=== PATIENT | male | born 1960 | race Caucasian/White ===

== ENCOUNTER 2017-05-29 16:39 | Inpatient (IN) | payer BC, OTHER ==
--- NOTE | 2017-05-29 20:21 | EDM.PDOC ---
ED HPI GENERAL MEDICAL PROBLEM - General Chief Complaint: General Stated Complaint: SHORTNESS OF BREATH; HIGH BLOOD PRESSURE Time Seen by Provider: 05/29/17 18:08 Source of Information: Reports: Patient History Limitations: Reports: No Limitations - History of Present Illness INITIAL COMMENTS - FREE TEXT/NARRATIVE: History of present illness: [57-year-old male with known coronary disease and congestive heart failure presenting with especially this last week increasing trouble with PND at night and orthopnea and now today all day long he's been experiencing some chest heaviness and pressure that spontaneously resolved when he arrived to the ER. He does have a history of being stented in 2013 and so does have known coronary artery disease. So at the time that I'm seeing him he sitting up comfortable showing no signs of respiratory distress and not having any chest pain but he is quite edematous.] Review of systems: As per history of present illness and below otherwise all systems reviewed and negative. Past medical history: As per history of present illness and as reviewed below otherwise noncontributory. Surgical history: As per history of present illness and as reviewed below otherwise noncontributory. Social history: No reported history of drug or alcohol abuse. Family history: As per history of present illness and as reviewed below otherwise noncontributory. Physical exam: HEENT: Atraumatic, normocephalic, pupils reactive, negative for conjunctival pallor or scleral icterus, mucous membranes moist, throat clear, neck supple, nontender, trachea midline. Lungs: Some crackles in the bases. Heart: S1S2, regular, negative for clicks, rubs, or JVD. Abdomen: Soft, nondistended, nontender. Negative for masses or hepatosplenomegaly. Negative for costovertebral tenderness. Pelvis: Stable nontender. Genitourinary: Deferred. Rectal: Deferred. Extremities: Atraumatic, negative for cords or calf pain. Neurovascular unremarkable. He does have pitting edema in his lower extremities left greater than right. Neuro: Awake, alert, oriented. Cranial nerves II through XII unremarkable. Cerebellum unremarkable. Motor and sensory unremarkable throughout. Exam nonfocal. Diagnostics: [EKG shows a sinus rhythm with no current ischemia or injury. Troponin is not elevated. His BNP is also not elevated. Chest x-ray I believe is demonstrating redistribution pattern suggestive of congestive heart failure] Therapeutics: [] Impression: [Exacerbation of congestive heart failure] Plan: [I think it would be easiest to hospitalize him and try to maximize his medical therapy in the hospital setting where he can be monitored closely and hopefully come up with a medication regime that meets his needs at this time. Eyes with [facility] who is admitting him at this time. If possible I would think he would be useful to get an echocardiogram on him so that his cardiac function could be evaluated and documented] Definitive disposition and diagnosis as appropriate pending reevaluation and review of above. - Related Data Allergies Allergy/AdvReac Type Severity Reaction Status Date / Time iodine Allergy Intermediate Hives Verified 12/18/16 20:36 atorvastatin [From Lipitor] Allergy Cannot Verified 12/18/16 20:36 Remember celecoxib [From Celebrex] Allergy Cannot Verified 12/18/16 20:36 Remember colchicine Allergy Cannot Verified 12/18/16 20:36 Remember doxycycline Allergy Pain Verified 05/29/17 17:39 naltrexone Allergy Cannot Verified 12/18/16 20:36 Remember nebivolol HCl [From Bystolic] Allergy Shaking Verified 12/18/16 20:36 niacin Allergy Cannot Verified 12/18/16 20:36 Remember nifedipine [From Procardia] Allergy Hypertensio Verified 12/18/16 20:36 n prazosin HCl [From Minipress] Allergy Hypertensio Verified 12/18/16 20:36 n shellfish derived Allergy Cannot Verified 12/18/16 20:36 Remember wheat Allergy Cannot Verified 08/16/16 06:56 Remember diagnostic dye Allergy Cannot Uncoded 12/18/16 20:37 Remember tuberculin test Allergy Cannot Uncoded 12/18/16 20:37 Remember Home Meds: Home Meds Atenolol [Tenormin] 25 mg PO BID 09/07/13 [History] Nitroglycerin [Nitrostat] 1 tab SL ASDIRECTED PRN 09/07/13 [History] Potassium Chloride [Potassium Chloride Solution] 20 meq PO DAILY 09/07/13 [ History] Rosuvastatin Calcium [Crestor] 40 mg PO BEDTIME 09/07/13 [History] Ascorbic Acid [Vitamin C] 500 mg PO DAILY 03/28/16 [History] Cyanocobalamin (Vitamin B-12) [Vitamin B-12] 2 tab PO DAILY 03/28/16 [History] Gluc HCl/Csa/Marta Hy/Hyalur Ac [Glucosamine Chondroitin] 1 each PO DAILY [History] Multivitamin [Multivitamins] 1 each PO DAILY 03/28/16 [History] Vitamin E 400 unit PO DAILY 03/28/16 [History] Albuterol Sulfate [Proair Hfa] 2 puff IH Q4H PRN 08/01/16 [History] Aspirin [Halfprin] 81 mg PO DAILY 08/01/16 [History] Fluticasone Propionate [Flonase] 2 spray NS DAILY 08/01/16 [History] Furosemide [Lasix] 20 mg PO QPM 08/01/16 [History] Furosemide [Lasix] 40 mg PO DAILY 08/01/16 [History] Indomethacin [Indocin SR] 75 mg PO BIDMEALS 08/01/16 [History] Loratadine [Claritin] 10 mg PO DAILY 08/01/16 [History] [place]-3/DHA/Epa/Fish Oil [[place]-3 Fish Oil 1,000 MG Sfgl] 1,000 mg PO DAILY [History] Vitamin-Lipotropic 1 tab PO DAILY 08/01/16 [History] Allopurinol [Zyloprim] 300 mg PO DAILY 08/14/16 [History] Ibuprofen 200 mg PO Q6HR PRN 08/16/16 [History] Past Medical History HEENT History: Reports: Allergic Rhinitis, Impaired Vision Cardiovascular History: Reports: Heart Failure, Heart Murmur, High Cholesterol, Hypertension, SOB on Exertion, Stents Respiratory History: Reports: Pneumonia, Recurrent Other Respiratory History: seasonal allergies with use of albuterol as needed. Gastrointestinal History: Reports: Diverticulosis Musculoskeletal History: Reports: Back Pain, Chronic, Fracture, Gout, Neck Pain , Chronic, Osteoarthritis Endocrine/Metabolic History: Reports: Obesity/BMI 30+ Hematologic History: Reports: Blood Transfusion(s) Dermatologic History: Reports: Venous Stasis Dermatitis - Infectious Disease History Infectious Disease History: Reports: Chicken Pox, Measles - Past Surgical History Head Surgeries/Procedures: Reports: None HEENT Surgical History: Reports: Oral Surgery Cardiovascular Surgical History: Reports: Coronary Artery Stent Respiratory Surgical History: Reports: None GI Surgical History: Reports: Appendectomy, EGD Endocrine Surgical History: Reports: None Musculoskeletal Surgical History: Reports: None Dermatological Surgical History: Reports: Other (See Below) Social & Family History - Family History Family Medical History: Noncontributory Cardiac: Reports: CAD, High Cholesterol, Hypertension, [place] - Tobacco Use Smoking Status *Q: Never Smoker Second Hand Smoke Exposure: No - Caffeine Use Caffeine Use: Reports: Coffee, Soda, Tea - Alcohol Use Days Per Week of Alcohol Use: 0 - Recreational Drug Use Recreational Drug Use: No ED ROS GENERAL - Review of Systems Review Of Systems: ROS reveals no pertinent complaints other than HPI. ED EXAM, GENERAL - Physical Exam Exam: See Below Course - Vital Signs Last Recorded V/S: Last Vital Signs Temp 36.7 C 05/29/17 17:36 Pulse 60 05/29/17 19:53 Resp 14 05/29/17 19:53 BP 154/91 H 05/29/17 19:53 Pulse Ox 96 05/29/17 19:53 - Orders/Labs/Meds Orders: Active Orders 24 hr Category Date Time Status EKG Documentation Completion [RC] ASDIRECTED Care 05/29/17 18:19 Active EKG Documentation Completion [RC] ASDIRECTED Care 05/29/17 18:33 Active Chest 1V Frontal [CR] Stat Exams 05/29/17 18:32 Taken EKG 12 Lead [EK] Routine Ther 05/29/17 18:19 Ordered EKG 12 Lead [EK] Stat Ther 05/29/17 18:32 Ordered Labs: Laboratory Tests 05/29/17 05/29/17 05/29/17 Range/Units 18:44 18:44 18:44 WBC 8.7 (4.5-11.0) K/uL RBC 4.53 (4.30-5.90) M/uL Hgb 13.9 (12.0-15.0) g/dL Hct 41.0 (40.0-54.0) % MCV 91 (80-98) fL MCH 31 (27-31) pg MCHC 34 (32-36) % Plt Count 194 (150-400) K/uL Neut % (Auto) 66 (36-66) % Lymph % (Auto) 23 L (24-44) % Woodson % (Auto) 6 (2-6) % Eos % (Auto) 4 (2-4) % Baso % (Auto) 1 (0-1) % PT 10.1 (9.5-12.0) sec INR 0.95 (0.80-1.20) D-Dimer, Quantitative < 100 (0.0-400.0) ng/mL Sodium (140-148) mmol/L Potassium (3.6-5.2) mmol/L Chloride (100-108) mmol/L Carbon Dioxide (21-32) mmol/L Anion Gap (5.0-14.0) mmol/L BUN (7-18) mg/dL Creatinine (0.8-1.3) mg/dL Est Cr Clr Drug Dosing mL/min Estimated GFR (MDRD) (>60) Glucose (74-106) mg/dL Calcium (8.5-10.1) mg/dL Total Bilirubin (0.2-1.0) mg/dL AST (15-37) U/L ALT (12-78) U/L Alkaline Phosphatase (46-116) U/L Troponin I (0.000-0.056) ng/mL Bea-T-Azeframterd Pept (5-125) pg/mL Total Protein (6.4-8.2) g/dL Albumin (3.4-5.0) g/dL Globulin (2.3-3.5) g/dL Albumin/Globulin Ratio (1.2-2.2) Urine Color Urine Appearance Urine pH (4.5-8.0) Ur Specific Gore (1.008-1.030) Urine Protein (NEGATIVE) mg/dL Urine Glucose (UA) (NEGATIVE) mg/dL Urine Ketones (NEGATIVE) mg/dL Urine Occult Blood (NEGATIVE) Urine Nitrite (NEGAITVE) Urine Bilirubin (NEGATIVE) Urine Urobilinogen (NORMAL) mg/dL Ur Leukocyte Esterase (NEGATIVE) Urine RBC (0-5) Urine WBC (0-5) Ur Epithelial Cells Amorphous Sediment Urine Bacteria Urine Mucus 05/29/17 05/29/17 Range/Units 18:44 19:56 WBC (4.5-11.0) K/uL RBC (4.30-5.90) M/uL Hgb (12.0-15.0) g/dL Hct (40.0-54.0) % MCV (80-98) fL MCH (27-31) pg MCHC (32-36) % Plt Count (150-400) K/uL Neut % (Auto) (36-66) % Lymph % (Auto) (24-44) % Woodson % (Auto) (2-6) % Eos % (Auto) (2-4) % Baso % (Auto) (0-1) % PT (9.5-12.0) sec INR (0.80-1.20) D-Dimer, Quantitative (0.0-400.0) ng/mL Sodium 143 (140-148) mmol/L Potassium 3.6 (3.6-5.2) mmol/L Chloride 104 (100-108) mmol/L Carbon Dioxide 31 (21-32) mmol/L Anion Gap 7.6 (5.0-14.0) mmol/L BUN 18 (7-18) mg/dL Creatinine 1.1 (0.8-1.3) mg/dL Est Cr Clr Drug Dosing 86.14 mL/min Estimated GFR (MDRD) > 60 (>60) Glucose 115 H (74-106) mg/dL Calcium 8.8 (8.5-10.1) mg/dL Total Bilirubin 0.2 (0.2-1.0) mg/dL AST 17 (15-37) U/L ALT 37 (12-78) U/L Alkaline Phosphatase 87 (46-116) U/L Troponin I < 0.017 (0.000-0.056) ng/mL Sxe-H-Bykihrivazj Pept 76 (5-125) pg/mL Total Protein 7.3 (6.4-8.2) g/dL Albumin 3.3 L (3.4-5.0) g/dL Globulin 4.0 H (2.3-3.5) g/dL Albumin/Globulin Ratio 0.8 L (1.2-2.2) Urine Color Yellow Urine Appearance Clear Urine pH 5.0 (4.5-8.0) Ur Specific Gore 1.020 (1.008-1.030) Urine Protein Negative (NEGATIVE) mg/dL Urine Glucose (UA) Normal (NEGATIVE) mg/dL Urine Ketones Negative (NEGATIVE) mg/dL Urine Occult Blood Negative (NEGATIVE) Urine Nitrite Negative (NEGAITVE) Urine Bilirubin Negative (NEGATIVE) Urine Urobilinogen Normal (NORMAL) mg/dL Ur Leukocyte Esterase Negative (NEGATIVE) Urine RBC 0-5 (0-5) Urine WBC 0-5 (0-5) Ur Epithelial Cells Rare Amorphous Sediment Few Urine Bacteria Not seen Urine Mucus Few Departure - Departure Time of Disposition: 20:21 Disposition: Admitted As Inpatient 66 Condition: Good Clinical Impression: CHF, Congestive heart failure - Discharge Information Forms: ED Department Discharge - My Orders Last 24 Hours: My Active Orders 05/29/17 18:19 EKG Documentation Completion [RC] ASDIRECTED EKG 12 Lead [EK] Routine 05/29/17 18:32 Chest 1V Frontal [CR] Stat EKG 12 Lead [EK] Stat 05/29/17 18:33 EKG Documentation Completion [RC] ASDIRECTED - Assessment/Plan Last 24 Hours: My Active Orders 05/29/17 18:19 EKG Documentation Completion [RC] ASDIRECTED EKG 12 Lead [EK] Routine 05/29/17 18:32 Chest 1V Frontal [CR] Stat EKG 12 Lead [EK] Stat 05/29/17 18:33 EKG Documentation Completion [RC] ASDIRECTED
[2017-05-29] MEDS ORDERED: Ibuprofen 400 MG Tab PO ONE (20:43)
[2017-05-29] MEDS ORDERED: Furosemide 40 MG/4 ML VIAL IVPUSH ONE (21:21)
[2017-05-29] MEDS ORDERED: Sodium Chloride 0.9% 10 ML Syringe FLUSH PRN (21:23)
[2017-05-29] MEDS ORDERED: Furosemide 20 MG/2 ML VIAL IVPUSH ONE (21:23)
[2017-05-29] MEDS ORDERED: Albuterol 8 GM Inhaler INH PRN (23:07)
[2017-05-29] MEDS ORDERED: Morphine 2 MG/ML Syringe IVPUSH PRN (23:07)
[2017-05-29] MEDS ORDERED: Docusate Sodium 100 MG Cap PO PRN (23:07)
[2017-05-29] MEDS ORDERED: Acetaminophen 325 MG Tab PO PRN (23:07)
[2017-05-29] MEDS ORDERED: Albuterol 0.083% 2.5 MG/3 ML Neb Soln NEB PRN (23:07)
[2017-05-29] MEDS ORDERED: Albuterol/Ipratropium 3.0-0.5 MG/3 ML Neb Soln NEB PRN (23:07)
[2017-05-29] MEDS ORDERED: LORazepam 2 MG/ML MDV IV PRN (23:07)
[2017-05-29] MEDS ORDERED: Ondansetron 4 MG Tab.DIS PO PRN (23:07)
[2017-05-29] MEDS ORDERED: Nitroglycerin 0.4 MG Tab.SL SL PRN (23:07)
[2017-05-29] MEDS ORDERED: Ibuprofen 400 MG Tab PO PRN (23:07)
[2017-05-29] MEDS ORDERED: Bisacodyl 5 MG Tab PO PRN (23:07)
[2017-05-29] MEDS ORDERED: oxyCODONE 5 MG Tab PO PRN (23:07)
[2017-05-30] MEDS ORDERED: Rosuvastatin 10 MG Tab PO SCH ×2 (00:14→21:00)
[2017-05-30] MEDS ORDERED: Rosuvastatin 10 MG Tab ONE ×2 (00:17→00:19)
[2017-05-30] MEDS: Atenolol 25 MG Tab PO SCH ×2 (00:18→08:36)
[2017-05-30] MEDS ORDERED: Pantoprazole 40 MG Tab.CR PO SCH ×2 (07:30→09:00)
--- NOTE | 2017-05-30 07:35 | PCM.HP ---
H&P History of Present Illness - General Date of Service: 05/29/17 Admit Problem/Dx: Admission Diagnosis/Problem Admission Diagnosis/Problem Chest pain Source of Information: Patient History Limitations: Reports: No Limitations - History of Present Illness Initial Comments - Free Text/Narative: History of present illness: [57-year-old male with known coronary disease and congestive heart failure presenting with especially this last week increasing trouble with PND at night and orthopnea and now today all day long he's been experiencing some chest heaviness and pressure that spontaneously resolved when he arrived to the ER. He does have a history of being stented in 2013 and age 40 years and so does have known coronary artery disease. So at the time that I'm seeing him he sitting up comfortable showing no signs of respiratory distress and not having any chest pain but he is quite edematous.] Review of systems: As per history of present illness and below otherwise all systems reviewed and negative. Past medical history: As per history of present illness and as reviewed below otherwise noncontributory. Surgical history: As per history of present illness and as reviewed below otherwise noncontributory. Social history: No reported history of drug or alcohol abuse. Family history: As per history of present illness and as reviewed below otherwise noncontributory. Physical exam: HEENT: Atraumatic, normocephalic, pupils reactive, negative for conjunctival pallor or scleral icterus, mucous membranes moist, throat clear, neck supple, nontender, trachea midline. Lungs: Some crackles in the bases. Heart: S1S2, regular, negative for clicks, rubs, or JVD. Abdomen: Soft, nondistended, nontender. Negative for masses or hepatosplenomegaly. Negative for costovertebral tenderness. Pelvis: Stable nontender. Genitourinary: Deferred. Rectal: Deferred. Extremities: Atraumatic, negative for cords or calf pain. Neurovascular unremarkable. He does have pitting edema in his lower extremities left greater than right. Neuro: Awake, alert, oriented. Cranial nerves II through XII unremarkable. Cerebellum unremarkable. Motor and sensory unremarkable throughout. Exam nonfocal. Diagnostics: [EKG shows a sinus rhythm with no current ischemia or injury. Troponin is not elevated. His BNP is also not elevated. Chest x-ray I believe is demonstrating redistribution pattern suggestive of congestive heart failure] Therapeutics: [] Impression: [Exacerbation of congestive heart failure] Plan: admit to hospital Onset of Symptoms: Reports: Today Duration of Symptoms: Reports: Hour(s):, Resolved Prior to Arrival Location: Reports: Chest Quality: Reports: Ache, Burning Severity: Moderate Improves with: Reports: None Worsens with: Reports: None Associated Symptoms: Reports: Shortness of Breath, Other (stopped Plavix 3 months ago.) - Related Data Allergies/Adverse Reactions: Allergies Allergy/AdvReac Type Severity Reaction Status Date / Time iodine Allergy Intermediate Hives Verified 12/18/16 20:36 atorvastatin [From Lipitor] Allergy Cannot Verified 12/18/16 20:36 Remember celecoxib [From Celebrex] Allergy Cannot Verified 12/18/16 20:36 Remember colchicine Allergy Cannot Verified 12/18/16 20:36 Remember doxycycline Allergy Pain Verified 05/29/17 17:39 naltrexone Allergy Cannot Verified 12/18/16 20:36 Remember nebivolol HCl [From Bystolic] Allergy Shaking Verified 12/18/16 20:36 niacin Allergy Cannot Verified 12/18/16 20:36 Remember nifedipine [From Procardia] Allergy Hypertensio Verified 12/18/16 20:36 n prazosin HCl [From Minipress] Allergy Hypertensio Verified 12/18/16 20:36 n shellfish derived Allergy Cannot Verified 12/18/16 20:36 Remember wheat Allergy Cannot Verified 08/16/16 06:56 Remember diagnostic dye Allergy Cannot Uncoded 12/18/16 20:37 Remember tuberculin test Allergy Cannot Uncoded 12/18/16 20:37 Remember Home Medications: Home Meds Atenolol [Tenormin] 25 mg PO BID 09/07/13 [History] Nitroglycerin [Nitrostat] 1 tab SL ASDIRECTED PRN 09/07/13 [History] Potassium Chloride [Potassium Chloride Solution] 20 meq PO DAILY 09/07/13 [ History] Rosuvastatin Calcium [Crestor] 40 mg PO BEDTIME 09/07/13 [History] Ascorbic Acid [Vitamin C] 500 mg PO DAILY 03/28/16 [History] Cyanocobalamin (Vitamin B-12) [Vitamin B-12] 2 tab PO DAILY 03/28/16 [History] Gluc HCl/Csa/Marta Hy/Hyalur Ac [Glucosamine Chondroitin] 1 each PO DAILY [History] Multivitamin [Multivitamins] 1 each PO DAILY 03/28/16 [History] Vitamin E 400 unit PO DAILY 03/28/16 [History] Albuterol Sulfate [Proair Hfa] 2 puff IH Q4H PRN 08/01/16 [History] Aspirin [Halfprin] 81 mg PO DAILY 08/01/16 [History] Fluticasone Propionate [Flonase] 2 spray NS DAILY 08/01/16 [History] Furosemide [Lasix] 20 mg PO QPM 08/01/16 [History] Furosemide [Lasix] 40 mg PO DAILY 08/01/16 [History] Indomethacin [Indocin SR] 75 mg PO BIDMEALS 08/01/16 [History] Loratadine [Claritin] 10 mg PO DAILY 08/01/16 [History] [place]-3/DHA/Epa/Fish Oil [[place]-3 Fish Oil 1,000 MG Sfgl] 1,000 mg PO DAILY [History] Vitamin-Lipotropic 1 tab PO DAILY 08/01/16 [History] Allopurinol [Zyloprim] 300 mg PO DAILY 08/14/16 [History] Ibuprofen 200 mg PO Q6HR PRN 08/16/16 [History] Past Medical History HEENT History: Reports: Allergic Rhinitis, Impaired Vision Cardiovascular History: Reports: Heart Failure, Heart Murmur, High Cholesterol, Hypertension, SOB on Exertion, Stents Respiratory History: Reports: Pneumonia, Recurrent Other Respiratory History: seasonal allergies with use of albuterol as needed. Gastrointestinal History: Reports: Diverticulosis Musculoskeletal History: Reports: Back Pain, Chronic, Fracture, Gout, Neck Pain , Chronic, Osteoarthritis Endocrine/Metabolic History: Reports: Obesity/BMI 30+ Hematologic History: Reports: Blood Transfusion(s) Dermatologic History: Reports: Venous Stasis Dermatitis - Infectious Disease History Infectious Disease History: Reports: Chicken Pox, Measles - Past Surgical History Head Surgeries/Procedures: Reports: None HEENT Surgical History: Reports: Oral Surgery Cardiovascular Surgical History: Reports: Coronary Artery Stent Respiratory Surgical History: Reports: None GI Surgical History: Reports: Appendectomy, EGD Endocrine Surgical History: Reports: None Musculoskeletal Surgical History: Reports: None Dermatological Surgical History: Reports: Other (See Below) Social & Family History - Family History Family Medical History: Noncontributory Cardiac: Reports: CAD, High Cholesterol, Hypertension, [place] - Tobacco Use Smoking Status *Q: Never Smoker Second Hand Smoke Exposure: No - Caffeine Use Caffeine Use: Reports: Soda Other Caffeine Use: Pepsi - Alcohol Use Days Per Week of Alcohol Use: 0 - Recreational Drug Use Recreational Drug Use: No - Living Situation & Occupation Living situation: Reports: Occupation: Employed (lives with Liza in [place], [place]. 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[place], [place].) H&P Review of Systems - Review of Systems: Review Of Systems: See Below General: Reports: Malaise, Weight Gain HEENT: Reports: No Symptoms Pulmonary: Reports: Shortness of Breath, Pleuritic Chest Pain Cardiovascular: Reports: Chest Pain, Dyspnea on Exertion, Orthopnea, PND, Edema Gastrointestinal: Reports: No Symptoms Genitourinary: Reports: No Symptoms Musculoskeletal: Reports: No Symptoms Skin: Reports: No Symptoms Psychiatric: Reports: No Symptoms Neurological: Reports: No Symptoms Hematologic/Lymphatic: Reports: No Symptoms Immunologic: Reports: No Symptoms Exam - Exam Exam: See Below - Vital Signs Vital Signs: Last Vital Signs Temp 36.9 C 05/30/17 03:05 Pulse 61 05/30/17 03:05 Resp 18 05/30/17 03:05 BP 114/78 05/30/17 03:05 Pulse Ox 96 05/30/17 03:05 Weight: 156.625 kg - Exam General: Alert, Oriented, 4 HEENT: PERRLA, Hearing Intact, Mucosa Moist & [place], Nares Patent, Normal Nasal Septum, Posterior Pharynx Clear, Conjunctiva Clear, EOMI, EACs Clear, TMs Clear Neck: Supple, Trachea Midline, 2 Lungs: Clear to Auscultation, Normal Respiratory Effort Cardiovascular: Regular Rate, Regular Rhythm, Normal S1 Abdomen: Normal Bowel Sounds, Soft (Male) Exam: Deferred Rectal (Males) Exam: Deferred Back Exam: Normal Inspection, Full Range of Motion, NT Extremities: Edema Skin: Warm, Dry, Intact Neurological: Cranial Nerves Intact, Reflexes Equal Bilateral Neuro Extensive - Mental Status: Alert, Oriented x3, Normal Mood/Affect, Normal Cognition Neuro Extensive - Motor, Sensory, Reflexes: CN II-XII Intact, Normal Gait, Normal Reflexes Psychiatric: Alert, Normal Affect, Normal Mood - Patient Data Lab Results Last 24 hrs: Laboratory Results - last 24 hr 05/30/17 05/30/17 Range/Units 05:10 05:10 WBC 8.7 (4.5-11.0) K/uL RBC 4.40 (4.30-5.90) M/uL Hgb 13.5 (12.0-15.0) g/dL Hct 40.1 (40.0-54.0) % MCV 91 (80-98) fL MCH 31 (27-31) pg MCHC 34 (32-36) % Plt Count 172 (150-400) K/uL Neut % (Auto) 60 (36-66) % Lymph % (Auto) 28 (24-44) % Archer % (Auto) 7 H (2-6) % Eos % (Auto) 4 (2-4) % Baso % (Auto) 1 (0-1) % Sodium 143 (140-148) mmol/L Potassium 3.2 L (3.6-5.2) mmol/L Chloride 102 (100-108) mmol/L Carbon Dioxide 34 H (21-32) mmol/L Anion Gap 10.2 (5.0-14.0) mmol/L BUN 17 (7-18) mg/dL Creatinine 1.1 (0.8-1.3) mg/dL Est Cr Clr Drug Dosing 86.14 mL/min Estimated GFR (MDRD) > 60 (>60) Glucose 119 H (74-106) mg/dL Calcium 8.7 (8.5-10.1) mg/dL Magnesium 1.8 (1.8-2.4) mg/dL Troponin I < 0.017 (0.000-0.056) ng/mL Result Diagrams: 05/30/17 05:10 05/30/17 05:10 *Q Meaningful Use (ADM) - VTE *Q VTE Criteria *Q: - Stroke *Q Stroke Criteria *Q: - AMI *Q AMI Criteria *Q: - Problem List (1) Chest pain, atypical SNOMED Code(s): 418266426 ICD Code: R07.89 - OTHER CHEST PAIN Status: Acute Priority: High Current Visit: Yes (2) CHF, Congestive heart failure SNOMED Code(s): 71018765 ICD Code: I50.9 - HEART FAILURE, UNSPECIFIED Status: Acute Priority: High Current Visit: Yes Problem List Initiated/Reviewed/Updated: Yes Orders Last 24hrs: Active Orders 24 hr Category Date Time Status Patient Status [ADT] Routine ADT 05/29/17 23:07 Active Cardiac Education [RC] Click To Edit Care 05/29/17 23:07 Active Cardiac Monitoring [RC] .As Directed Care 05/29/17 23:07 Active EKG Documentation Completion [RC] ASDIRECTED Care 05/29/17 23:07 Active Intake and Output [RC] QSHIFT Care 05/29/17 23:07 Active Notify Provider Vital Signs [RC] ASDIRECTED Care 05/29/17 23:07 Active Oxygen Therapy [RC] PRN Care 05/29/17 23:07 Active Pulse Oximetry [RC] CONTINUOUS Care 05/29/17 23:07 Active RT Aerosol Therapy [RC] ASDIRECTED Care 05/29/17 23:07 Active Up ad Renea [RC] ASDIRECTED Care 05/29/17 23:07 Active Vital Signs [RC] Q4H Care 05/29/17 23:07 Active 2 Gram Sodium Diet [DIET] Diet 05/29/17 Breakfast Active Chest 1V Frontal [CR] AM Exams 05/30/17 05:11 Taken Acetaminophen [Tylenol] Med 05/29/17 23:07 Active 650 mg PO Q4H PRN Albuterol [Proventil Neb Soln] Med 05/29/17 23:07 Active 2.5 mg NEB Q4H PRN Albuterol [Ventolin HFA] Med 05/29/17 23:07 Active 0 gm INH Q4H PRN Albuterol/Ipratropium [DuoNeb 3.0-0.5 MG/3 ML] Med 05/29/17 23:07 Active 3 ml NEB QID PRN Allopurinol [Zyloprim] Med 05/30/17 09:00 Active 300 mg PO DAILY Aspirin Med 05/30/17 09:00 Pending 81 mg PO DAILY Aspirin [Halfprin] Med 05/30/17 09:00 Active 81 mg PO DAILY Atenolol [Tenormin] Med 05/29/17 23:07 Active 25 mg PO BID Bisacodyl [Dulcolax] Med 05/29/17 23:07 Active 5 mg PO DAILY PRN Cyanocobalamin (Vitamin B12) [Vitamin B12] Med 05/30/17 09:00 Active 2,000 mcg PO DAILY Docusate Sodium [Colace] Med 05/29/17 23:07 Active 100 mg PO BID PRN Docusate Sodium/Sennosides [Senna Plus] Med 05/29/17 23:07 Active 1 tab PO BID PRN Enoxaparin [Lovenox] Med 05/30/17 09:00 Active 40 mg SUBCUT DAILY Fluticasone Propionate [Flonase] Med 05/30/17 09:00 Active 0 gm NASBOTH DAILY Furosemide [Lasix] Med 05/30/17 17:00 Active 20 mg PO QPM Furosemide [Lasix] Med 05/30/17 09:00 Active 40 mg PO DAILY Ibuprofen [Motrin] Med 05/29/17 23:07 Active 400 mg PO Q6H PRN LORazepam [Ativan] Med 05/29/17 23:07 Active 1 mg IV Q6H PRN Loratadine [Claritin] Med 05/30/17 09:00 Active 10 mg PO DAILY Morphine Med 05/29/17 23:07 Active 2 mg IVPUSH Q2H PRN Multivitamins w-Iron/Ca/FA/Min [Thera M Plus] Med 05/30/17 09:00 Active 1 tab PO DAILY Nitroglycerin [Nitrostat] Med 05/29/17 23:07 Active 0.4 mg SL ASDIRECTED PRN Ondansetron [Zofran ODT] Med 05/29/17 23:07 Active 4 mg PO Q4H PRN Pantoprazole [ProTONIX] Med 05/30/17 07:30 Active 40 mg PO ACBREAKFAST Potassium Chloride [Potassium Chloride Solution] Med 05/30/17 09:00 Active 20 meq PO DAILY Rosuvastatin [Crestor] Med 05/30/17 00:14 Active 40 mg PO BEDTIME oxyCODONE Med 05/29/17 23:07 Active 10 mg PO Q4H PRN Resuscitation Status Routine Resus Stat 05/29/17 22:27 Ordered EKG 12 Lead [EK] AM Ther 05/30/17 05:11 Ordered Medication Orders Acetaminophen (Tylenol) 650 mg PO Q4H PRN PRN Reason: Pain (Mild 1-3)/fever Albuterol (Proventil Neb Soln) 2.5 mg NEB Q4H PRN PRN Reason: Shortness Of Breath/wheezing Albuterol (Ventolin Hfa) 0 gm INH Q4H PRN PRN Reason: Shortness of Breath Albuterol/Ipratropium (Duoneb 3.0-0.5 Mg/3 Ml) 3 ml NEB QID PRN PRN Reason: Shortness Of Breath/wheezing Allopurinol (Zyloprim) 300 mg PO DAILY [facility] Aspirin (Aspirin) 81 mg PO DAILY [facility] Aspirin (Halfprin) 81 mg PO DAILY [facility] Atenolol (Tenormin) 25 mg PO BID [facility] Last Admin: 05/30/17 00:18 Dose: 25 mg Bisacodyl (Dulcolax) 5 mg PO DAILY PRN PRN Reason: Constipation Cyanocobalamin (Vitamin B12) 2,000 mcg PO DAILY [facility] Docusate Sodium (Colace) 100 mg PO BID PRN PRN Reason: Constipation Enoxaparin Sodium (Lovenox) 40 mg SUBCUT DAILY [facility] Fluticasone Propionate (Flonase) 0 gm NASBOTH DAILY [facility] Furosemide (Lasix) 20 mg PO QPM [facility] Furosemide (Lasix) 40 mg PO DAILY [facility] Ibuprofen (Motrin) 400 mg PO Q6H PRN PRN Reason: Pain (mild 1-3) Loratadine (Claritin) 10 mg PO DAILY [facility] Lorazepam (Ativan) 1 mg IV Q6H PRN PRN Reason: Anxiety Morphine Sulfate (Morphine) 2 mg IVPUSH Q2H PRN PRN Reason: Pain (severe 7-10) Multivitamins/Minerals (Thera M Plus) 1 tab PO DAILY [facility] Nitroglycerin (Nitrostat) 0.4 mg SL ASDIRECTED PRN PRN Reason: Chest Pain Ondansetron HCl (Zofran Odt) 4 mg PO Q4H PRN PRN Reason: Nausea/Vomiting Oxycodone HCl (Oxycodone) 10 mg PO Q4H PRN PRN Reason: Pain (moderate 4-6) Pantoprazole Sodium (Protonix) 40 mg PO ACBREAKFAST [facility] Potassium Chloride (Potassium Chloride Solution) 20 meq PO DAILY [facility] Rosuvastatin Calcium (Crestor) 40 mg PO BEDTIME [facility] Last Admin: 05/30/17 00:20 Dose: 40 mg Senna/Docusate Sodium (Senna Plus) 1 tab PO BID PRN PRN Reason: Constipation Sodium Chloride (Saline Flush) 10 ml FLUSH ASDIRECTED PRN PRN Reason: Keep Vein Open Assessment/Plan Comment:: ASSESSEMENT AND PLAN: History of present illness: 57-year-old male with known coronary disease and congestive heart failure presenting with especially this last week increasing trouble with PND at night and orthopnea and now today all day long he's been experiencing some chest heaviness and pressure that spontaneously resolved when he arrived to the ER. He does have a history of being stented in 2013 and age 40 years and so does have known coronary artery disease. So at the time that I'm seeing him he sitting up comfortable showing no signs of respiratory distress and not having any chest pain but he is quite edematous. Plan Chest Pain rule out [place] -Admit to [address] [place] [address] for further monitoring -Telemetry. EKG in am -And a.m. labs: Troponie CHF -Lasix 60mg IV in ER -labs CBC, BMP Maintenance issues -Orders home meds: -Nutrition: low sodium, no wheat diet -May catheter not indicated at this time -DVT: Lovenox subcut -PPI; IV Protonix 40mg daily CODE STATUS: FULL Admission status: Admit to [address] [place] [address] Admission justification. This patient will be admitted for inpatient services and is medically appropriate meeting medical necessity for inpatient admission as outlined in my documentation. I reasonably expect the patient will require inpatient services that span. Time over 2 midnights. I reasonably expect this patient to be discharged or transferred within 96 hours after admission to the critical access hospital. Disposition; home Primary care provider: Adrian Leslie NP Hospitalist: Dr. Jones
--- NOTE | 2017-05-30 08:47 | CR ---
Chest 1V Frontal INDICATION: chf, chest pain FINDINGS: Comparison 05/29/2017. No change. Negative AP portable chest x-ray.
--- NOTE | 2017-05-30 08:47 | CR ---
Chest 1V Frontal INDICATION: SOB FINDINGS: Comparison 03/28/2016. No change. Negative AP portable chest x-ray.
[2017-05-30] MEDS ORDERED: Multivitamins with Iron/Calcium/Folic Acid/Minerals Tab PO SCH (09:00)
[2017-05-30] MEDS ORDERED: Potassium Chloride 10% 20 MEQ/15 ML Soln 15 ML UD Cup PO SCH (09:00)
[2017-05-30] MEDS ORDERED: Furosemide 20 MG Tab PO SCH ×2 (09:00→17:00)
[2017-05-30] MEDS ORDERED: Potassium Chloride 20 MEQ Tab.ER PO SCH (09:00)
[2017-05-30] MEDS ORDERED: Aspirin 81 MG Tab.EC PO SCH (09:00)
[2017-05-30] MEDS ORDERED: Aspirin 81 MG Tab.Chew PO SCH (09:00)
[2017-05-30] MEDS ORDERED: Furosemide 40 MG Tab PO SCH (09:00)
[2017-05-30] MEDS ORDERED: Cyanocobalamin (Vitamin B12) 1,000 MCG Tab PO SCH (09:00)
[2017-05-30] MEDS ORDERED: Loratadine 10 MG Tab PO SCH (09:00)
[2017-05-30] MEDS ORDERED: Enoxaparin 40 MG/0.4 ML Syringe SUBCUT SCH (09:00)
[2017-05-30] MEDS ORDERED: Allopurinol 300 MG Tab PO SCH (09:00)
[2017-05-30] MEDS ORDERED: Fluticasone Propionate Nasal Spray 16 GM Bottle NASBOTH SCH (09:00)
[2017-05-30] MEDS ORDERED: Potassium Chloride 20 MEQ Tab.ER PO ONE (09:00)
[2017-05-30 11:46] VITALS: BP 146/70
--- NOTE | 2017-05-30 12:00 | PCM.DCSUM1 ---
Discharge Summary - Hospital Course Brief History: Mr. Sánchez is a 57-year-old gentleman who was admitted through the emergency department for further evaluation and management of chest pain. - Discharge Data Discharge Date: 05/30/17 Discharge Disposition: Home, Self-Care 01 Condition: Fair - Discharge Diagnosis/Problem(s) (1) Chest pain, atypical SNOMED Code(s): 146141906 ICD Code: R07.89 - OTHER CHEST PAIN Status: Acute Priority: High Current Visit: Yes (2) History of coronary artery disease SNOMED Code(s): 649635770 ICD Code: Z86.79 - PERSONAL HISTORY OF OTHER DISEASES OF THE CIRCULATORY SYSTEM Status: Chronic Current Visit: No (3) CHF, Congestive heart failure SNOMED Code(s): 98676919 ICD Code: I50.9 - HEART FAILURE, UNSPECIFIED Status: Acute Priority: High Current Visit: Yes - Patient Summary/Data Hospital Course: Mr. Sánchez is a 57-year-old gentleman with a known history of coronary artery disease, on the day of admission experienced symptoms of chest pain and presented to the emergency department for further evaluation. He has a previous history of right coronary artery occlusion, status post angioplasty with stent placement. On the day of admission experienced symptoms of chest pain associated with diaphoresis and some nausea. He was brought to the emergency department for further evaluation, initial EKG and troponin level were unremarkable. He was admitted to observation status to rule out myocardial infarction. Follow-up troponin levels were within normal range. He did receive IV diuretic therapy on admission and had marked improvement in his shortness of breath as well as peripheral edema prior to discharge. He will continue his usual medications, he does not currently have nitroglycerin available so this will be ordered for him. He will monitor his weight on a daily basis and continue to follow low-sodium diet. Activity will otherwise be as tolerated and if he experiences any further symptoms of chest pain he will present to the emergency department immediately. Follow-up appointment will be scheduled with his primary care provider within 1 week as well as a follow-up appointment with cardiology. [place] scan Cardiolite study will be scheduled for June 03. - Patient Instructions Diet: Low Sodium Activity: As Tolerated Other/Special Instructions: Please schedule a follow-up appointment with primary care provider within one week. Please schedule [place] scan Cardiolite study for June 03. - Discharge Plan Prescriptions/Med Rec: Nitroglycerin 0.4 mg SL Q5M #50 tab.subl Home Medications: Home Meds Atenolol [Tenormin] 25 mg PO BID 09/07/13 [History] Nitroglycerin [Nitrostat] 1 tab SL ASDIRECTED PRN 09/07/13 [History] Potassium Chloride [Potassium Chloride Solution] 20 meq PO DAILY 09/07/13 [ History] Rosuvastatin Calcium [Crestor] 40 mg PO BEDTIME 09/07/13 [History] Ascorbic Acid [Vitamin C] 500 mg PO DAILY 03/28/16 [History] Cyanocobalamin (Vitamin B-12) [Vitamin B-12] 2 tab PO DAILY 03/28/16 [History] Gluc HCl/Csa/Marta Hy/Hyalur Ac [Glucosamine Chondroitin] 1 each PO DAILY [History] Multivitamin [Multivitamins] 1 each PO DAILY 03/28/16 [History] Vitamin E 400 unit PO DAILY 03/28/16 [History] Albuterol Sulfate [Proair Hfa] 2 puff IH Q4H PRN 08/01/16 [History] Aspirin [Halfprin] 81 mg PO DAILY 08/01/16 [History] Fluticasone Propionate [Flonase] 2 spray NS DAILY 08/01/16 [History] Furosemide [Lasix] 20 mg PO QPM 08/01/16 [History] Furosemide [Lasix] 40 mg PO DAILY 08/01/16 [History] Indomethacin [Indocin SR] 75 mg PO BIDMEALS 08/01/16 [History] Loratadine [Claritin] 10 mg PO DAILY 08/01/16 [History] [place]-3/DHA/Epa/Fish Oil [[place]-3 Fish Oil 1,000 MG Sfgl] 1,000 mg PO DAILY [History] Vitamin-Lipotropic 1 tab PO DAILY 08/01/16 [History] Allopurinol [Zyloprim] 300 mg PO DAILY 08/14/16 [History] Ibuprofen 200 mg PO Q6HR PRN 08/16/16 [History] Nitroglycerin 0.4 mg SL Q5M #50 tab.subl 05/30/17 [Rx] Referrals: Adrian Leslie, HSE SPECIALIST [Primary Care Provider] - - Patient Data Vitals - Most Recent: Last Vital Signs Temp 98.3 F 05/30/17 11:43 Pulse 55 L 05/30/17 11:43 Resp 16 05/30/17 11:43 BP 146/70 H 05/30/17 11:43 Pulse Ox 96 05/30/17 11:43 Weight - Most Recent: 345 lb 4.8 oz I&O - Last 24 hours: Intake & Output 05/29/17 05/30/17 05/30/17 22:59 06:59 14:59 Intake Total 480 600 Output Total 1400 Balance -920 600 Lab Results - Last 24 hrs: Laboratory Results - last 24 hr 05/30/17 05/30/17 Range/Units 05:10 05:10 WBC 8.7 (4.5-11.0) K/uL RBC 4.40 (4.30-5.90) M/uL Hgb 13.5 (12.0-15.0) g/dL Hct 40.1 (40.0-54.0) % MCV 91 (80-98) fL MCH 31 (27-31) pg MCHC 34 (32-36) % Plt Count 172 (150-400) K/uL Neut % (Auto) 60 (36-66) % Lymph % (Auto) 28 (24-44) % [place] % (Auto) 7 H (2-6) % Eos % (Auto) 4 (2-4) % Baso % (Auto) 1 (0-1) % Sodium 143 (140-148) mmol/L Potassium 3.2 L (3.6-5.2) mmol/L Chloride 102 (100-108) mmol/L Carbon Dioxide 34 H (21-32) mmol/L Anion Gap 10.2 (5.0-14.0) mmol/L BUN 17 (7-18) mg/dL Creatinine 1.1 (0.8-1.3) mg/dL Est Cr Clr Drug Dosing 86.14 mL/min Estimated GFR (MDRD) > 60 (>60) Glucose 119 H (74-106) mg/dL Calcium 8.7 (8.5-10.1) mg/dL Magnesium 1.8 (1.8-2.4) mg/dL Troponin I < 0.017 (0.000-0.056) ng/mL Med Orders - Current: Current Medications Acetaminophen (Tylenol) 650 mg PO Q4H PRN PRN Reason: Pain (Mild 1-3)/fever Albuterol (Proventil Neb Soln) 2.5 mg NEB Q4H PRN PRN Reason: Shortness Of Breath/wheezing Albuterol (Ventolin Hfa) 0 gm INH Q4H PRN PRN Reason: Shortness of Breath Albuterol/Ipratropium (Duoneb 3.0-0.5 Mg/3 Ml) 3 ml NEB QID PRN PRN Reason: Shortness Of Breath/wheezing Allopurinol (Zyloprim) 300 mg PO DAILY [facility] Last Admin: 05/30/17 08:35 Dose: 300 mg Aspirin (Halfprin) 81 mg PO DAILY [facility] Last Admin: 05/30/17 08:36 Dose: 81 mg Atenolol (Tenormin) 25 mg PO BID [facility] Last Admin: 05/30/17 08:36 Dose: 25 mg Bisacodyl (Dulcolax) 5 mg PO DAILY PRN PRN Reason: Constipation Cyanocobalamin (Vitamin B12) 2,000 mcg PO DAILY [facility] Last Admin: 05/30/17 08:37 Dose: 2,000 mcg Docusate Sodium (Colace) 100 mg PO BID PRN PRN Reason: Constipation Enoxaparin Sodium (Lovenox) 40 mg SUBCUT DAILY [facility] Last Admin: 05/30/17 08:36 Dose: 40 mg Fluticasone Propionate (Flonase) 0 gm NASBOTH DAILY [facility] Last Admin: 05/30/17 08:35 Dose: 2 spray Furosemide (Lasix) 20 mg PO QPM [facility] Furosemide (Lasix) 40 mg PO DAILY [facility] Last Admin: 05/30/17 10:01 Dose: 40 mg Ibuprofen (Motrin) 400 mg PO Q6H PRN PRN Reason: Pain (mild 1-3) Loratadine (Claritin) 10 mg PO DAILY [facility] Last Admin: 05/30/17 08:35 Dose: 10 mg Lorazepam (Ativan) 1 mg IV Q6H PRN PRN Reason: Anxiety Morphine Sulfate (Morphine) 2 mg IVPUSH Q2H PRN PRN Reason: Pain (severe 7-10) Multivitamins/Minerals (Thera M Plus) 1 tab PO DAILY [facility] Last Admin: 05/30/17 08:36 Dose: 1 tab Nitroglycerin (Nitrostat) 0.4 mg SL ASDIRECTED PRN PRN Reason: Chest Pain Ondansetron HCl (Zofran Odt) 4 mg PO Q4H PRN PRN Reason: Nausea/Vomiting Oxycodone HCl (Oxycodone) 10 mg PO Q4H PRN PRN Reason: Pain (moderate 4-6) Pantoprazole Sodium (Protonix) 40 mg PO ACBREAKFAST [facility] Last Admin: 05/30/17 08:33 Dose: 40 mg Potassium Chloride (Klor-Con M20) 20 meq PO DAILY@0800 [facility] Last Admin: 05/30/17 10:02 Dose: 20 meq Rosuvastatin Calcium (Crestor) 40 mg PO BEDTIME [facility] Last Admin: 05/30/17 00:20 Dose: 40 mg Senna/Docusate Sodium (Senna Plus) 1 tab PO BID PRN PRN Reason: Constipation Sodium Chloride (Saline Flush) 10 ml FLUSH ASDIRECTED PRN PRN Reason: Keep Vein Open Discontinued Medications Furosemide (Lasix) 40 mg IVPUSH ONETIME ONE Stop: 05/29/17 21:22 Last Admin: 05/29/17 21:44 Dose: 40 mg Furosemide (Lasix) 20 mg IVPUSH ONETIME ONE Stop: 05/29/17 21:24 Last Admin: 05/29/17 21:44 Dose: 20 mg Ibuprofen (Motrin) 400 mg PO ONETIME ONE Stop: 05/29/17 20:44 Last Admin: 05/29/17 21:03 Dose: 400 mg Potassium Chloride (Klor-Con M20) 40 meq PO ONETIME ONE Stop: 05/30/17 09:01 Last Admin: 05/30/17 10:02 Dose: 40 meq Rosuvastatin Calcium (Crestor) 40 mg PO BEDTIME [facility] Rosuvastatin Calcium (Crestor) Confirm Administered Dose 10 mg .ROUTE .STK-MED ONE Stop: 05/30/17 00:18 Last Admin: 05/30/17 00:22 Dose: Not Given Rosuvastatin Calcium (Crestor) Confirm Administered Dose 30 mg .ROUTE .STK-MED ONE Stop: 05/30/17 00:20 Last Admin: 05/30/17 00:41 Dose: Not Given *Q Meaningful Use (DIS) - VTE *Q VTE Criteria *Q: - Stroke *Q Stroke Criteria *Q: - AMI *Q AMI Criteria *Q:
== END 2017-05-30 13:01 | disposition home or self-care (01) | DRG 313 ==
LOC: JP.ED 16:39 → JP.MS 22:25
PROVIDERS: ADMIT Hospitalist; ATTEND Hospitalist
DX: R07.89 Other chest pain (principal); I50.9 Heart failure, unspecified; I25.10 Atherosclerotic heart disease of native coronary artery without angina pectoris; Z95.5 Presence of coronary angioplasty implant and graft; E78.00 Pure hypercholesterolemia, unspecified; M19.90 Unspecified osteoarthritis, unspecified site; M54.9 Dorsalgia, unspecified; G89.29 Other chronic pain; Z87.01 Personal history of pneumonia (recurrent); H54.7 Unspecified visual loss; Z79.82 Long term (current) use of aspirin; Z88.1 Allergy status to other antibiotic agents; Z91.041 Radiographic dye allergy status; Z91.013 Allergy to seafood; Z88.7 Allergy status to serum and vaccine; Z88.8 Allergy status to other drugs, medicaments and biological substances; Z91.018 Allergy to other foods
CPT/HCPCS: 36415; 71010; 71010-26; 80048; 80053; 81001; 83735; 83880; 84484; 85025; 85379; 85610; 93005; 94762; 96374; 99285-25; A9270-GY; J1650; J1940; J2060

== ENCOUNTER 2017-10-13 08:41 | Emergency (ER) | payer OTHER ==
[2017-10-13] MEDS ORDERED: Furosemide 40 MG Tab PO ONE (09:18)
--- NOTE | 2017-10-13 09:25 | EDM.PDOC ---
ED HPI GENERAL MEDICAL PROBLEM - General Chief Complaint: Cardiovascular Problem Stated Complaint: SOB/RAPID HEART RATE/CHEST PAIN Time Seen by Provider: 10/13/17 08:55 Source of Information: Reports: Patient, Family History Limitations: Reports: No Limitations - History of Present Illness INITIAL COMMENTS - FREE TEXT/NARRATIVE: 57-year-old male with chronic hypertension, peripheral edema, congestive heart failure recently had a extensive cardiology workup including an angiogram where he had 40% lesion in the right coronary but no intervention was taken. He takes Lasix twice a day and over the holidays he has gained 8 pounds of fluid. He was feeling fine last night but woke up at 5 AM with a nosebleed. He got that stopped but then his heart started pounding. This has happened to him intermittently for years, and was partly due to his recent cardiac workup as well as several Holter monitors and it usually resolves after he rests for about 20 minutes. However this morning it seemed to be persistent, he checked his pulse and it was 90, his blood pressure was normal but he developed some chest pressure and took a nitroglycerin and it seemed to help so he came in. He now feels anxious but he has no pain, he still feels like his heart is pounding "harder than it should be". The monitor shows normal sinus rhythm, his rate is 88, his blood pressure is normal. He has no ectopy. Severity: Mild Associated Symptoms: Reports: Other (Increased edema and weight gain over the past 2 to 4 days) - Related Data Allergies Allergy/AdvReac Type Severity Reaction Status Date / Time iodine Allergy Intermediate Hives Verified 10/13/17 08:56 atorvastatin [From Lipitor] Allergy Cannot Verified 10/13/17 08:56 Remember celecoxib [From Celebrex] Allergy Cannot Verified 10/13/17 08:56 Remember colchicine Allergy Cannot Verified 10/13/17 08:56 Remember doxycycline Allergy Pain Verified 10/13/17 08:56 Iodinated Contrast- Oral and Allergy Cannot Verified 10/13/17 08:56 IV Dye Remember naltrexone Allergy Cannot Verified 10/13/17 08:56 Remember nebivolol HCl [From Bystolic] Allergy Shaking Verified 10/13/17 08:56 niacin Allergy Cannot Verified 10/13/17 08:56 Remember nifedipine [From Procardia] Allergy Hypertensio Verified 10/13/17 08:56 n prazosin HCl [From Minipress] Allergy Hypertensio Verified 10/13/17 08:56 n shellfish derived Allergy Cannot Verified 10/13/17 08:56 Remember tuberculin, purified protein Allergy Cannot Verified 10/13/17 08:56 deriva Remember wheat Allergy Cannot Verified 10/13/17 08:56 Remember Home Meds: Home Meds Atenolol [Tenormin] 25 mg PO BID 09/07/13 [History] Nitroglycerin [Nitrostat] 1 tab SL ASDIRECTED PRN 09/07/13 [History] Potassium Chloride [Potassium Chloride Solution] 20 meq PO DAILY 09/07/13 [ History] Rosuvastatin Calcium [Crestor] 40 mg PO BEDTIME 09/07/13 [History] Ascorbic Acid [Vitamin C] 500 mg PO DAILY 03/28/16 [History] Cyanocobalamin (Vitamin B-12) [Vitamin B-12] 2 tab PO DAILY 03/28/16 [History] Gluc HCl/Csa/Marta Hy/Hyalur Ac [Glucosamine Chondroitin] 1 each PO DAILY [History] Multivitamin [Multivitamins] 1 each PO DAILY 03/28/16 [History] Vitamin E 400 unit PO DAILY 03/28/16 [History] Albuterol Sulfate [Proair Hfa] 2 puff IH Q4H PRN 08/01/16 [History] Aspirin [Halfprin] 81 mg PO DAILY 08/01/16 [History] Fluticasone Propionate [Flonase] 2 spray NS DAILY 08/01/16 [History] Furosemide [Lasix] 20 mg PO QPM 08/01/16 [History] Furosemide [Lasix] 40 mg PO DAILY 08/01/16 [History] Indomethacin [Indocin SR] 75 mg PO BIDMEALS PRN 08/01/16 [History] Loratadine [Claritin] 10 mg PO DAILY 08/01/16 [History] [place]-3/DHA/Epa/Fish Oil [[place]-3 Fish Oil 1,000 MG Sfgl] 1,000 mg PO DAILY [History] Vitamin-Lipotropic 1 tab PO DAILY 08/01/16 [History] Allopurinol [Zyloprim] 300 mg PO DAILY 08/14/16 [History] Ibuprofen 200 mg PO Q6HR PRN 08/16/16 [History] Past Medical History HEENT History: Reports: Allergic Rhinitis, Impaired Vision Cardiovascular History: Reports: Heart Failure, Heart Murmur, High Cholesterol, Hypertension, SOB on Exertion, Stents Respiratory History: Reports: Pneumonia, Recurrent Other Respiratory History: seasonal allergies with use of albuterol as needed. Gastrointestinal History: Reports: Diverticulosis Musculoskeletal History: Reports: Back Pain, Chronic, Fracture, Gout, Neck Pain , Chronic, Osteoarthritis Endocrine/Metabolic History: Reports: Obesity/BMI 30+ Hematologic History: Reports: Blood Transfusion(s) Dermatologic History: Reports: Venous Stasis Dermatitis - Infectious Disease History Infectious Disease History: Reports: Chicken Pox, Measles - Past Surgical History HEENT Surgical History: Reports: Oral Surgery Cardiovascular Surgical History: Reports: Coronary Artery Stent GI Surgical History: Reports: Appendectomy, EGD Dermatological Surgical History: Reports: Other (See Below) Social & Family History - Family History Family Medical History: Noncontributory Cardiac: Reports: CAD, High Cholesterol, Hypertension, [place] - Tobacco Use Smoking Status *Q: Never Smoker Second Hand Smoke Exposure: No - Caffeine Use Caffeine Use: Reports: Soda Other Caffeine Use: Pepsi - Alcohol Use Days Per Week of Alcohol Use: 0 - Recreational Drug Use Recreational Drug Use: No - Living Situation & Occupation Living situation: Reports: Occupation: Employed (lives with Liza in [place], [place]. 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 Denies: Fever, Chills HEENT: Reports: Other (Epistaxis this morning which resolved) Respiratory: Denies: Shortness of Breath Cardiovascular: Reports: Chest Pain (Pressure) GI/Abdominal: Denies: Abdominal Pain, Nausea, Vomiting : Reports: No Symptoms Skin: Reports: Other (Dealing with superficial ulcerations on his lower extremities, healing nicely) Neurological: Denies: Headache Psychiatric: Reports: Anxiety ED EXAM, GENERAL - Physical Exam Exam: See Below Exam Limited By: No Limitations General Appearance: Alert, Anxious Neck: Normal Inspection, Supple Respiratory/Chest: No Respiratory Distress, Lungs Clear Cardiovascular: Regular Rate, Rhythm. No: Extra Beats GI/Abdominal: Other (Morbidly obese) Extremities: Pedal Edema (Tense 2+ pitting edema bilaterally) Neurological: Alert, Oriented Skin Exam: Warm, Dry, Other (Venous stasis changes of the lower extremities with some healing varicose vein ulcerations) Course - Vital Signs Last Recorded V/S: Last Vital Signs Temp 98.2 F 10/13/17 08:52 Pulse 69 10/13/17 09:32 Resp 16 10/13/17 09:32 BP 144/83 H 10/13/17 09:32 Pulse Ox 94 L 10/13/17 09:32 - Orders/Labs/Meds Meds: Medications Discontinued Medications Generic Name Dose Route Start Last Admin Trade Name Drew PRN Reason Stop Dose Admin Furosemide 40 mg 10/13/17 09:18 10/13/17 09:33 Lasix PO 10/13/17 09:19 40 mg ONETIME ONE Administration - Re-Assessments/Exams Free Text/Narrative Re-Assessment/Exam: 10/13/17 09:23 Had a long discussion with the patient regarding his symptoms, recent workup, increased peripheral edema and current vitals. He was recommended to repeat a troponin in 3-4 hours but the patient felt he was okay and if he could deal with the increase fluid his symptoms would improve. I agree. He was given 40 mg of oral Lasix, and told to return if symptoms recur. Departure - Departure Time of Disposition: 09:42 Disposition: Home, Self-Care 01 Condition: Good Clinical Impression: Palpitations, Chest pain, atypical Congestive heart failure Qualifiers: Congestive heart failure type: systolic Congestive heart failure chronicity: acute on chronic Qualified Code(s): I50.23 - Acute on chronic systolic ( congestive) heart failure Instructions: Nonspecific Chest Pain, [id number], Palpitations, [id number] , Heart Failure, [id number] Referrals: Adrian Leslie NP [Primary Care Provider] - Forms: ED Department Discharge Care Plan Goals: Take 40 mg of Lasix twice daily for the next 2 days, the very careful with extra salt and increase activity as tolerated. Return any time if symptoms worsen or you have persistent chest pain. Report to physical therapy tomorrow as scheduled.
[2017-10-13 09:33] VITALS: BP 144/83
== END 2017-10-13 09:42 | disposition home or self-care (01) ==
LOC: JP.ED 08:41
DX: I11.0 Hypertensive heart disease with heart failure (principal); I50.23 Acute on chronic systolic (congestive) heart failure; E66.9 Obesity, unspecified; E78.00 Pure hypercholesterolemia, unspecified; R00.2 Palpitations; Z88.8 Allergy status to other drugs, medicaments and biological substances; Z91.013 Allergy to seafood; Z79.899 Other long term (current) drug therapy
CPT/HCPCS: 99285; A9270

== ENCOUNTER 2019-02-21 22:42 | Emergency (ER) | payer BC, OTHER ==
[2019-02-21 22:55] VITALS: BP 183/98
--- NOTE | 2019-02-21 23:35 | EDM.PDOC ---
ED HPI GENERAL MEDICAL PROBLEM - General Chief Complaint: Chest Pain Stated Complaint: CHEST PAIN,SOB Time Seen by Provider: 02/21/19 23:00 Source of Information: Reports: Patient, Family History Limitations: Reports: No Limitations - History of Present Illness INITIAL COMMENTS - FREE TEXT/NARRATIVE: 50-year-old male with type 2 diabetes, obesity and known coronary disease who has had 2 stents placed in the past one in 2000 and 2010 presents with intermittent chest pain for the past 3 weeks. Tonight he had some slight burning in his left arm so called the clinic and was sent into the emergency room. He also feels short of breath with activity. He gets no exercise. He had an angiogram a year ago and said he had 40% blockage in his right coronary. No intervention was done. Onset: Unknown/Unsure chest pain Pain Score (Numeric/FACES): 3 left upper arm Pain Score (Numeric/FACES): 2 - Related Data Allergies Allergy/AdvReac Type Severity Reaction Status Date / Time iodine Allergy Intermediate Hives Verified 02/21/19 22:50 atorvastatin [From Lipitor] Allergy Cannot Verified 02/21/19 22:50 Remember celecoxib [From Celebrex] Allergy Cannot Verified 02/21/19 22:50 Remember colchicine Allergy Cannot Verified 02/21/19 22:50 Remember doxycycline Allergy Pain Verified 02/21/19 22:50 Iodinated Contrast- Oral and Allergy Cannot Verified 02/21/19 22:50 IV Dye Remember naltrexone Allergy Cannot Verified 02/21/19 22:50 Remember nebivolol HCl [From Bystolic] Allergy Shaking Verified 02/21/19 22:50 niacin Allergy Cannot Verified 02/21/19 22:50 Remember nifedipine [From Procardia] Allergy Hypertensio Verified 02/21/19 22:50 n prazosin HCl [From Minipress] Allergy Hypertensio Verified 02/21/19 22:50 n shellfish derived Allergy Cannot Verified 02/21/19 22:50 Remember tuberculin, purified protein Allergy Cannot Verified 02/21/19 22:50 deriva Remember wheat Allergy Cannot Verified 02/21/19 22:50 Remember Home Meds: Home Meds Atenolol [Tenormin] 25 mg PO BID 09/07/13 [History] Nitroglycerin [Nitrostat] 1 tab SL ASDIRECTED PRN 09/07/13 [History] Potassium Chloride [Potassium Chloride Solution] 20 meq PO DAILY 10/21/13 [ History] Rosuvastatin Calcium [Crestor] 40 mg PO BEDTIME 09/07/13 [History] Ascorbic Acid [Vitamin C] 500 mg PO DAILY 03/28/16 [History] Cyanocobalamin (Vitamin B-12) [Vitamin B-12] 2 tab PO DAILY 03/28/16 [History] Gluc HCl/Csa/Marta Hy/Hyalur Ac [Glucosamine Chondroitin] 1 each PO DAILY [History] Multivitamin [Multivitamins] 1 each PO DAILY 03/28/16 [History] Vitamin E 400 unit PO DAILY 03/28/16 [History] Albuterol Sulfate [Proair Hfa] 2 puff IH Q4H PRN 08/01/16 [History] Aspirin [Halfprin] 81 mg PO DAILY 08/01/16 [History] Fluticasone Propionate [Flonase] 2 spray NS DAILY 08/01/16 [History] Furosemide [Lasix] 20 mg PO QPM 08/01/16 [History] Furosemide [Lasix] 40 mg PO DAILY 08/01/16 [History] Indomethacin [Indocin SR] 75 mg PO BIDMEALS PRN 08/01/16 [History] Loratadine [Claritin] 10 mg PO DAILY 08/01/16 [History] [place]-3/DHA/Epa/Fish Oil [[place]-3 Fish Oil 1,000 MG Sfgl] 1,000 mg PO DAILY [History] Vitamin-Lipotropic 1 tab PO DAILY 08/01/16 [History] Allopurinol [Zyloprim] 300 mg PO DAILY 08/14/16 [History] Ibuprofen 200 mg PO Q6HR PRN 08/16/16 [History] Past Medical History HEENT History: Reports: Allergic Rhinitis, Impaired Vision Cardiovascular History: Reports: Heart Failure, Heart Murmur, High Cholesterol, Hypertension, SOB on Exertion, Stents Respiratory History: Reports: Pneumonia, Recurrent, Other (See Below) Other Respiratory History: seasonal allergies with use of albuterol as needed. Gastrointestinal History: Reports: Other (See Below) Other Gastrointestinal History: meckles diverticulosis Musculoskeletal History: Reports: Back Pain, Chronic, Fracture, Gout, Neck Pain , Chronic, Osteoarthritis Endocrine/Metabolic History: Reports: Diabetes, Type II, Obesity/BMI 30+ Hematologic History: Reports: Blood Transfusion(s) Dermatologic History: Reports: Venous Stasis Dermatitis - Infectious Disease History Infectious Disease History: Reports: Measles, Mumps - Past Surgical History HEENT Surgical History: Reports: Oral Surgery Cardiovascular Surgical History: Reports: Coronary Artery Stent GI Surgical History: Reports: Appendectomy, EGD Musculoskeletal Surgical History: Reports: Other (See Below) Other Musculoskeletal Surgeries/Procedures:: surgical repair of right bicep. left elbow bursa removed Social & Family History - Family History Family Medical History: Noncontributory Cardiac: Reports: CAD, High Cholesterol, Hypertension, [place] - Tobacco Use Smoking Status *Q: Never Smoker - Caffeine Use Caffeine Use: Reports: Coffee Other Caffeine Use: Pepsi - Recreational Drug Use Recreational Drug Use: No - Living Situation & Occupation Living situation: Reports: Occupation: Employed (lives with Liza in [place], [place]. 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 Denies: Cough Cardiovascular: Reports: Chest Pain GI/Abdominal: Denies: Abdominal Pain, Nausea, Vomiting : Reports: No Symptoms Musculoskeletal: Reports: Other (Diffuse chronic arthritis) Skin: Reports: Other (Some venous stasis changes of the lower extremities) Neurological: Reports: No Symptoms ED EXAM, GENERAL - Physical Exam Exam: See Below Exam Limited By: No Limitations General Appearance: Alert, No Apparent Distress Eye Exam: Bilateral Eye: Normal Inspection Head: Atraumatic Neck: Normal Inspection Respiratory/Chest: No Respiratory Distress, Lungs Clear Cardiovascular: Regular Rate, Rhythm, No Murmur. No: Extra Beats GI/Abdominal: Soft, Non-Tender Extremities: Pedal Edema (1+ symmetric lower extremity edema) Neurological: Alert, Oriented Course - Vital Signs Last Recorded V/S: Last Vital Signs Temp 97.1 F 02/21/19 22:56 Pulse 71 02/21/19 22:56 Resp 18 02/21/19 22:56 BP 183/98 H 02/21/19 22:56 Pulse Ox 95 02/21/19 22:56 - Orders/Labs/Meds Orders: Active Orders 24 hr Category Date Time Status EKG Documentation Completion [RC] ASDIRECTED Care 02/21/19 23:04 Active EKG 12 Lead [EK] Routine Ther 02/21/19 23:04 Ordered Labs: Laboratory Tests 02/21/19 02/21/19 Range/Units 23:04 23:04 WBC 12.3 H (4.5-11.0) K/uL RBC 4.83 (4.30-5.90) M/uL Hgb 13.9 (12.0-15.0) g/dL Hct 40.9 (40.0-54.0) % MCV 85 (80-98) fL MCH 29 (27-31) pg MCHC 34 (32-36) % Plt Count 209 (150-400) K/uL Neut % (Auto) 66 (36-66) % Lymph % (Auto) 24 (24-44) % [place] % (Auto) 7 H (2-6) % Eos % (Auto) 2 (2-4) % Baso % (Auto) 1 (0-1) % Sodium 139 L (140-148) mmol/L Potassium 3.2 L (3.6-5.2) mmol/L Chloride 101 (100-108) mmol/L Carbon Dioxide 28 (21-32) mmol/L Anion Gap 13.2 (5.0-14.0) mmol/L BUN 26 H D (7-18) mg/dL Creatinine 1.1 (0.8-1.3) mg/dL Est Cr Clr Drug Dosing 85.11 mL/min Estimated GFR (MDRD) > 60 (>60) Glucose 164 H (74-106) mg/dL Calcium 9.3 (8.5-10.1) mg/dL Total Bilirubin 0.2 (0.2-1.0) mg/dL AST 14 L (15-37) U/L ALT 33 (12-78) U/L Alkaline Phosphatase 83 (46-116) U/L Troponin I < 0.017 (0.000-0.056) ng/mL Total Protein 6.9 (6.4-8.2) g/dL Albumin 3.2 L (3.4-5.0) g/dL Globulin 3.7 H (2.3-3.5) g/dL Albumin/Globulin Ratio 0.9 L (1.2-2.2) - Re-Assessments/Exams Free Text/Narrative Re-Assessment/Exam: 02/21/19 23:56 Patient remained comfortable during the ER stay. Two-view chest x-ray was normal , CMP revealed a glucose of 164 but otherwise normal, troponin was negative. EKG was normal. We discussed more typical symptoms of angina and if these develop he will return immediately. 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 Departure - Departure Time of Disposition: 00:07 Disposition: Home, Self-Care 01 Condition: Good Clinical Impression: Chest pain, atypical - Discharge Information Instructions: Nonspecific Chest Pain Referrals: Adrian Leslie NP [Primary Care Provider] - Forms: ED Department Discharge Care Plan Goals: Increase activity as tolerated, and return anytime if pain worsens especially if it is directly related to activity. Consider calling your plant maintenance supervisor this week to see if your appointment can get moved closer. - My Orders Last 24 Hours: My Active Orders 02/21/19 23:04 EKG Documentation Completion [RC] ASDIRECTED EKG 12 Lead [EK] Routine - Assessment/Plan Last 24 Hours: My Active Orders 02/21/19 23:04 EKG Documentation Completion [RC] ASDIRECTED EKG 12 Lead [EK] Routine
--- NOTE | 2019-02-21 23:59 | CRLCR ---
INDICATION: dyspnea HISTORY Dyspnea. TECHNIQUE Two-view chest. COMPARISON Chest x-ray 05/30/2017. FINDINGS No airspace consolidation. No pleural effusion or pneumothorax. Pulmonary vasculature is within normal limits. Cardiomediastinal silhouette size is normal. Tortuous thoracic aorta. Degenerative changes of the spine. IMPRESSION No acute findings. Dictated by: Juan Walls MD @ 02/21/2019 23:57:26 (Electronically Signed)
== END 2019-02-22 00:07 | disposition home or self-care (01) ==
LOC: JP.ED 22:42
DX: R07.89 Other chest pain (principal); I11.0 Hypertensive heart disease with heart failure; I50.9 Heart failure, unspecified; E11.9 Type 2 diabetes mellitus without complications; E78.00 Pure hypercholesterolemia, unspecified; Z79.899 Other long term (current) drug therapy; Z91.041 Radiographic dye allergy status; Z91.018 Allergy to other foods; Z88.8 Allergy status to other drugs, medicaments and biological substances; Z91.013 Allergy to seafood; Z88.1 Allergy status to other antibiotic agents; Z91.09 Other allergy status, other than to drugs and biological substances; Z79.82 Long term (current) use of aspirin
CPT/HCPCS: 36415; 71046; 80053; 84484; 85025; 93005; 99285-25

== ENCOUNTER 2019-06-15 18:06 | Emergency (ER) | payer BC ==
[2019-06-15] MEDS ORDERED: Aspirin 81 MG Tab.Chew PO ONE (18:19)
--- NOTE | 2019-06-15 18:28 | EDM.PDOC ---
ED HPI GENERAL MEDICAL PROBLEM - General Chief Complaint: Chest Pain Stated Complaint: chest pain Time Seen by Provider: 06/15/19 18:15 Source of Information: Reports: Patient, Old Records History Limitations: Reports: No Limitations - History of Present Illness INITIAL COMMENTS - FREE TEXT/NARRATIVE: 59 yo male with known CAD presents after 5 hrs of L sided chest pressure that was a 9/10 at its worst, but is now down to a 1/10 without tx. He says he had nausea and SOB at one point, not now. Went to work with the pain and was told by an EMT to come to the ER. Onset of pain today at rest. 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: Other (see below) (none) Left Upper Chest Pain Score (Numeric/FACES): 1 - Related Data Allergies Allergy/AdvReac Type Severity Reaction Status Date / Time iodine Allergy Intermediate Hives Verified 02/21/19 22:50 atorvastatin [From Lipitor] Allergy Cannot Verified 06/15/19 18:20 Remember celecoxib [From Celebrex] Allergy Cannot Verified 06/15/19 18:20 Remember colchicine Allergy Cannot Verified 06/15/19 18:20 Remember doxycycline Allergy Pain Verified 06/15/19 18:20 Iodinated Contrast- Oral and Allergy Cannot Verified 06/15/19 18:20 IV Dye Remember naltrexone Allergy Cannot Verified 06/15/19 18:20 Remember nebivolol HCl [From Bystolic] Allergy Shaking Verified 06/15/19 18:20 niacin Allergy Cannot Verified 06/15/19 18:20 Remember nifedipine [From Procardia] Allergy Hypertensio Verified 06/15/19 18:20 n prazosin HCl [From Minipress] Allergy Hypertensio Verified 06/15/19 18:20 n shellfish derived Allergy Cannot Verified 06/15/19 18:20 Remember tuberculin, purified protein Allergy Cannot Verified 06/15/19 18:20 deriva Remember wheat Allergy Cannot Verified 06/15/19 18:20 Remember Home Meds: Home Meds Atenolol [Tenormin] 25 mg PO BID 09/07/13 [History] Potassium Chloride [Potassium Chloride Solution] 20 meq PO DAILY 09/07/13 [ History] Rosuvastatin Calcium [Crestor] 40 mg PO BEDTIME 09/07/13 [History] Ascorbic Acid [Vitamin C] 500 mg PO DAILY 03/28/16 [History] Cyanocobalamin (Vitamin B-12) [Vitamin B-12] 2 tab PO DAILY 03/28/16 [History] Gluc HCl/Csa/Marta Hy/Hyalur Ac [Glucosamine Chondroitin] 1 each PO DAILY [History] Multivitamin [Multivitamins] 1 each PO DAILY 03/28/16 [History] Albuterol Sulfate [Proair Hfa] 2 puff IH Q4H PRN 08/01/16 [History] Aspirin [Halfprin] 81 mg PO DAILY 08/01/16 [History] Furosemide [Lasix] 20 mg PO QPM 08/01/16 [History] Furosemide [Lasix] 40 mg PO DAILY 08/01/16 [History] Indomethacin [Indocin SR] 75 mg PO BIDMEALS PRN 08/01/16 [History] Loratadine [Claritin] 10 mg PO DAILY 08/01/16 [History] [place]-3/DHA/Epa/Fish Oil [[place]-3 Fish Oil 1,000 MG Sfgl] 1,000 mg PO DAILY [History] Vitamin-Lipotropic 1 tab PO DAILY 08/01/16 [History] Allopurinol [Zyloprim] 300 mg PO DAILY 08/14/16 [History] Ibuprofen 200 mg PO Q6HR PRN 08/16/16 [History] glipiZIDE [Glucotrol] 10 mg PO BID 06/15/19 [History] metFORMIN [Glucophage XR] 1,000 mg PO BIDMEALS 06/15/19 [History] Past Medical History HEENT History: Reports: Allergic Rhinitis, Impaired Vision Cardiovascular History: Reports: Heart Failure, Heart Murmur, High Cholesterol, Hypertension, SOB on Exertion, Stents Respiratory History: Reports: Pneumonia, Recurrent, Other (See Below) Other Respiratory History: seasonal allergies with use of albuterol as needed. Gastrointestinal History: Reports: Other (See Below) Other Gastrointestinal History: meckles diverticulosis Musculoskeletal History: Reports: Back Pain, Chronic, Fracture, Gout, Neck Pain , Chronic, Osteoarthritis Endocrine/Metabolic History: Reports: Diabetes, Type II, Obesity/BMI 30+ Hematologic History: Reports: Blood Transfusion(s) Dermatologic History: Reports: Venous Stasis Dermatitis - Infectious Disease History Infectious Disease History: Reports: Measles, Mumps - Past Surgical History HEENT Surgical History: Reports: Oral Surgery Cardiovascular Surgical History: Reports: Coronary Artery Stent GI Surgical History: Reports: Appendectomy, EGD Musculoskeletal Surgical History: Reports: Other (See Below) Other Musculoskeletal Surgeries/Procedures:: surgical repair of right bicep. left elbow bursa removed Social & Family History - Family History Family Medical History: Noncontributory Cardiac: Reports: CAD, High Cholesterol, Hypertension, [place] - Caffeine Use Caffeine Use: Reports: Coffee Other Caffeine Use: Pepsi - Living Situation & Occupation Living situation: Reports: Occupation: Employed (lives with Liza in [place], [place]. 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[place], [place].) ED ROS GENERAL - Review of Systems Review Of Systems: See Below Constitutional: Reports: No Symptoms HEENT: Reports: No Symptoms Respiratory: Reports: Shortness of Breath (earlier today) Cardiovascular: Reports: Chest Pain GI/Abdominal: Reports: Nausea (earlier today) : Reports: No Symptoms Musculoskeletal: Reports: No Symptoms Skin: Reports: No Symptoms Neurological: Reports: No Symptoms Psychiatric: Reports: No Symptoms ED EXAM, GENERAL - Physical Exam Exam: See Below Exam Limited By: No Limitations General Appearance: Alert, WD/WN, No Apparent Distress, Obese Eye Exam: Bilateral Eye: Normal Inspection Ears: Normal External Exam, Normal Canal, Hearing Grossly Normal Ear Exam: Bilateral Ear: Auricle Normal, Canal Normal Nose: Normal Inspection, No Blood Throat/Mouth: Normal Inspection, Normal Lips, Normal Oropharynx, Normal Voice, No Airway Compromise Head: Atraumatic, Normocephalic Respiratory/Chest: No Respiratory Distress, Lungs Clear, Normal Breath Sounds, No Accessory Muscle Use Cardiovascular: Regular Rate, Rhythm, No Edema GI/Abdominal: Normal Bowel Sounds, Soft, Non-Tender, No Distention Back Exam: Normal Inspection. No: CVA Tenderness (R), CVA Tenderness (L) Extremities: Normal Inspection, Normal Range of Motion, Non-Tender, No Pedal Edema Neurological: Alert, Oriented, CN II-XII Intact, Normal Cognition Psychiatric: Normal Affect, Normal Mood Skin Exam: Warm, Dry, Intact, Normal Color, No Rash EKG INTERPRETATION EKG Date: 06/15/19 Time: 18:15 Rhythm: NSR Rate (Beats/Min): 65 [place]: Normal P-Wave: Present QRS: Normal ST-T: Normal QT: Normal Comparison: No Change Course - Vital Signs Text/Narrative:: Was pain-free and after labs came back normal we tried to take him for a walk in the ER and his pain came back. Pt. sees Dr. Anthony for cardiology out of [facility] in [place], [place]. I called there @ 2011h, Dr. Mace called me back @ 2018h. Later discussed the case with their hospitalist, Dr. Lancaster, at 2035h Last Recorded V/S: Last Vital Signs Temp 36.4 C 06/15/19 18:25 Pulse 57 L 06/15/19 19:48 Resp 16 06/15/19 19:48 BP 142/72 H 06/15/19 19:48 Pulse Ox 95 06/15/19 19:48 - Orders/Labs/Meds Orders: Active Orders 24 hr Category Date Time Status Cardiac Monitoring [RC] .As Directed Care 06/15/19 18:11 Active EKG Documentation Completion [RC] ASDIRECTED Care 06/15/19 18:09 Active UA W/MICROSCOPIC [URIN] Stat Lab 06/15/19 18:21 Ordered Nitroglycerin [Nitrostat] Med 06/15/19 18:53 Active 0.4 mg SL Q5M PRN EKG 12 Lead [EK] Routine Ther 06/15/19 18:09 Ordered Medication Orders Nitroglycerin (Nitrostat) 0.4 mg SL Q5M PRN PRN Reason: Chest Pain Last Admin: 06/15/19 19:08 Dose: 0.4 mg Labs: Laboratory Tests 06/15/19 06/15/19 06/15/19 Range/Units 18:36 18:36 18:36 WBC 8.3 (4.5-11.0) K/uL RBC 4.73 (4.30-5.90) M/uL Hgb 14.0 (12.0-15.0) g/dL Hct 43.2 (40.0-54.0) % MCV 91 (80-98) fL MCH 30 (27-31) pg MCHC 32 (32-36) % Plt Count 193 (150-400) K/uL D-Dimer, Quantitative 103 (0.0-400.0) ng/mL Sodium 141 (140-148) mmol/L Potassium 3.4 L (3.6-5.2) mmol/L Chloride 99 L (100-108) mmol/L Carbon Dioxide 33 H (21-32) mmol/L Anion Gap 12.4 (5.0-14.0) mmol/L BUN 24 H (7-18) mg/dL Creatinine 1.3 (0.8-1.3) mg/dL Est Cr Clr Drug Dosing 71.13 mL/min Estimated GFR (MDRD) 57 L (>60) Glucose 217 H (74-106) mg/dL Calcium 9.6 (8.5-10.1) mg/dL Troponin I < 0.017 (0.000-0.056) ng/mL Meds: Medications Generic Name Dose Route Start Last Admin Trade Name Freq PRN Reason Stop Dose Admin Nitroglycerin 0.4 mg 06/15/19 18:53 06/15/19 19:08 Nitrostat SL 0.4 mg Q5M PRN Administration Chest Pain Discontinued Medications Generic Name Dose Route Start Last Admin Trade Name Freq PRN Reason Stop Dose Admin Aspirin 324 mg 06/15/19 18:19 06/15/19 18:58 Aspirin PO 06/15/19 18:20 324 mg ONETIME ONE Administration Potassium Chloride 40 meq 06/15/19 19:24 06/15/19 20:00 Potassium Chloride PO 06/15/19 19:25 40 meq ONETIME ONE Administration Departure - Departure Time of Disposition: 21:00 Disposition: DC/Tfer to Acute Hospital 02 Reason for Transfer *Q: Other Condition: Fair Clinical Impression: Unstable angina Referrals: Adrian Leslie NP [Primary Care Provider] - Forms: ED Department Discharge - My Orders Last 24 Hours: My Active Orders 06/15/19 18:09 EKG Documentation Completion [RC] ASDIRECTED EKG 12 Lead [EK] Routine 06/15/19 18:11 Cardiac Monitoring [RC] .As Directed 06/15/19 18:21 UA W/MICROSCOPIC [URIN] Stat 06/15/19 18:53 Nitroglycerin [Nitrostat] 0.4 mg SL Q5M PRN - Assessment/Plan Last 24 Hours: My Active Orders 06/15/19 18:09 EKG Documentation Completion [RC] ASDIRECTED EKG 12 Lead [EK] Routine 06/15/19 18:11 Cardiac Monitoring [RC] .As Directed 06/15/19 18:21 UA W/MICROSCOPIC [URIN] Stat 06/15/19 18:53 Nitroglycerin [Nitrostat] 0.4 mg SL Q5M PRN
[2019-06-15] MEDS: Nitroglycerin 0.4 MG Tab.SL SL PRN ×2 (19:08→20:10)
[2019-06-15] MEDS ORDERED: Potassium Chloride 10 MEQ Cap.ER PO ONE (19:24)
[2019-06-15] MEDS ORDERED: LORazepam 0.5 MG Tab PO ONE (20:09)
[2019-06-15] MEDS ORDERED: Nitroglycerin 2% Oint 1 GM UD Packet TOP ONE (20:38)
[2019-06-15 21:07] VITALS: BP 151/80; PULSE 58
== END 2019-06-15 21:40 ==
LOC: JP.ED 18:06
DX: I20.0 Unstable angina (principal); I11.0 Hypertensive heart disease with heart failure; I50.9 Heart failure, unspecified; E78.00 Pure hypercholesterolemia, unspecified; E11.9 Type 2 diabetes mellitus without complications; Z91.048 Other nonmedicinal substance allergy status; Z88.8 Allergy status to other drugs, medicaments and biological substances; Z88.1 Allergy status to other antibiotic agents; Z91.041 Radiographic dye allergy status; Z91.013 Allergy to seafood; Z91.018 Allergy to other foods; Z79.899 Other long term (current) drug therapy; Z79.82 Long term (current) use of aspirin; Z79.84 Long term (current) use of oral hypoglycemic drugs
CPT/HCPCS: 36415; 80048; 84484; 85027; 85379; 93005; 99285; A9270

== ENCOUNTER 2019-07-07 16:54 | Emergency (ER) | payer BC ==
[2019-07-07 17:32] VITALS: BP 120/66; PULSE 66
--- NOTE | 2019-07-07 18:10 | EDM.PDOC ---
ED HPI GENERAL MEDICAL PROBLEM - General Chief Complaint: Chest Pain Stated Complaint: CHEST PAIN VIA [facility]TH Time Seen by Provider: 07/07/19 18:00 Source of Information: Reports: Patient, EMS, Old Records History Limitations: Reports: No Limitations - History of Present Illness INITIAL COMMENTS - FREE TEXT/NARRATIVE: 59 yo male with known CAD presents from his place of employment at the [facility] with chest pain. He works in the [employer] as a cook. He took NTG x 2 and his pain has been gone since. He was slightly diaphoretic he says at one point. He was here last week for the same and was transferred to [place] at his request. There he ruled out for [place], but was felt to have unstable angina. He had Imdur added and had done well with that until today. He is scheduled to see his web analytics developer in 9 days, he didn't see cardiology during is [facility] stay. Take his Imdur in the late morning usually. Onset: Today Onset Date: 07/07/19 Onset Time: 04:05 Duration: Minutes: Location: Reports: Chest Quality: Reports: Other (tightness) Severity: Moderate Improves with: Reports: Medication Worsens with: Reports: Other (unknown) Context: Reports: Other (see HPI) Associated Symptoms: Reports: Chest Pain, Diaphoresis (mild, transient). Denies : Fever/Chills, Shortness of Breath Treatments SPECIAL EDUCATION TUTOR: Reports: Nitroglycerin - Related Data Allergies Allergy/AdvReac Type Severity Reaction Status Date / Time iodine Allergy Intermediate Hives Verified 02/21/19 22:50 atorvastatin [From Lipitor] Allergy Cannot Verified 06/15/19 18:20 Remember celecoxib [From Celebrex] Allergy Cannot Verified 06/15/19 18:20 Remember colchicine Allergy Cannot Verified 06/15/19 18:20 Remember doxycycline Allergy Pain Verified 06/15/19 18:20 Iodinated Contrast Media Allergy Cannot Verified 06/15/19 18:20 [Iodinated Contrast- Oral Remember and IV Dye] naltrexone Allergy Cannot Verified 06/15/19 18:20 Remember nebivolol HCl [From Bystolic] Allergy Shaking Verified 06/15/19 18:20 niacin Allergy Cannot Verified 06/15/19 18:20 Remember nifedipine [From Procardia] Allergy Hypertensio Verified 06/15/19 18:20 n prazosin HCl [From Minipress] Allergy Hypertensio Verified 06/15/19 18:20 n shellfish derived Allergy Cannot Verified 06/15/19 18:20 Remember tuberculin, purified protein Allergy Cannot Verified 06/15/19 18:20 deriva Remember wheat Allergy Cannot Verified 06/15/19 18:20 Remember Home Meds: Home Meds Atenolol [Tenormin] 25 mg PO BID 09/07/13 [History] Potassium Chloride [Potassium Chloride Solution] 20 meq PO DAILY 09/07/13 [ History] Rosuvastatin Calcium [Crestor] 40 mg PO BEDTIME 09/07/13 [History] Ascorbic Acid [Vitamin C] 500 mg PO DAILY 03/28/16 [History] Cyanocobalamin (Vitamin B-12) [Vitamin B-12] 4 tab PO DAILY 03/28/16 [History] Gluc HCl/Csa/Marta Hy/Hyalur Ac [Glucosamine Chondroitin] 1 each PO DAILY [History] Multivitamin [Multivitamins] 1 each PO DAILY 03/28/16 [History] Albuterol Sulfate [Proair Hfa] 2 puff IH Q4H PRN 08/01/16 [History] Aspirin [Halfprin] 81 mg PO DAILY 08/01/16 [History] Furosemide [Lasix] 20 mg PO DAILY 08/01/16 [History] Furosemide [Lasix] 40 mg PO BEDTIME 08/01/16 [History] Indomethacin [Indocin SR] 75 mg PO BIDMEALS PRN 08/01/16 [History] Loratadine [Claritin] 10 mg PO DAILY 08/01/16 [History] [place]-3/DHA/Epa/Fish Oil [[place]-3 Fish Oil 1,000 MG Sfgl] 1,000 mg PO DAILY [History] Vitamin-Lipotropic 1 tab PO DAILY 08/01/16 [History] Allopurinol [Zyloprim] 300 mg PO BID 08/14/16 [History] Ibuprofen 200 mg PO Q6HR PRN 08/16/16 [History] glipiZIDE [Glucotrol] 10 mg PO BID 06/15/19 [History] metFORMIN [Glucophage XR] 1,000 mg PO BIDMEALS 06/15/19 [History] Past Medical History HEENT History: Reports: Allergic Rhinitis, Impaired Vision Cardiovascular History: Reports: Heart Failure, Heart Murmur, High Cholesterol, Hypertension, SOB on Exertion, Stents Respiratory History: Reports: Pneumonia, Recurrent, Other (See Below) Other Respiratory History: seasonal allergies with use of albuterol as needed. Gastrointestinal History: Reports: Other (See Below) Other Gastrointestinal History: meckles diverticulosis Musculoskeletal History: Reports: Back Pain, Chronic, Fracture, Gout, Neck Pain , Chronic, Osteoarthritis Endocrine/Metabolic History: Reports: Diabetes, Type II, Obesity/BMI 30+ Hematologic History: Reports: Blood Transfusion(s) Dermatologic History: Reports: Venous Stasis Dermatitis - Infectious Disease History Infectious Disease History: Reports: Chicken Pox - Past Surgical History HEENT Surgical History: Reports: Oral Surgery Cardiovascular Surgical History: Reports: Coronary Artery Stent GI Surgical History: Reports: Appendectomy, EGD Male Surgical History: Reports: None Musculoskeletal Surgical History: Reports: Other (See Below) Other Musculoskeletal Surgeries/Procedures:: surgical repair of right bicep. left elbow bursa removed Social & Family History - Family History Family Medical History: Noncontributory Cardiac: Reports: CAD, High Cholesterol, Hypertension, [place] - Tobacco Use Smoking Status *Q: Never Smoker - Caffeine Use Caffeine Use: Reports: Soda Other Caffeine Use: Pepsi - Recreational Drug Use Recreational Drug Use: No - Living Situation & Occupation Living situation: Reports: Occupation: Employed (lives with Liza in [place], [place]. 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[place], [place].) ED ROS GENERAL - Review of Systems Review Of Systems: See Below Constitutional: Reports: Diaphoresis HEENT: Reports: No Symptoms Respiratory: Reports: No Symptoms Cardiovascular: Reports: Chest Pain Endocrine: Reports: No Symptoms GI/Abdominal: Reports: No Symptoms : Reports: No Symptoms Musculoskeletal: Reports: No Symptoms Skin: Reports: No Symptoms Neurological: Reports: No Symptoms ED EXAM, GENERAL - Physical Exam Exam: See Below Exam Limited By: No Limitations General Appearance: Alert, WD/WN, No Apparent Distress, Obese Eye Exam: Bilateral Eye: Normal Inspection Ears: Normal External Exam, Normal Canal, Hearing Grossly Normal Ear Exam: Bilateral Ear: Auricle Normal, Canal Normal Nose: Normal Inspection, No Blood Throat/Mouth: Normal Inspection, Normal Lips, Normal Oropharynx, Normal Voice, No Airway Compromise Head: Atraumatic, Normocephalic Neck: Normal Inspection, Supple, Non-Tender Respiratory/Chest: No Respiratory Distress, Lungs Clear, Normal Breath Sounds, No Accessory Muscle Use, Chest Non-Tender Cardiovascular: Regular Rate, Rhythm GI/Abdominal: Normal Bowel Sounds, Soft, Non-Tender, No Distention Back Exam: Normal Inspection Extremities: Normal Inspection, Normal Range of Motion, Non-Tender, Pedal Edema (1+ pitting edema to both LE's below the knees.). No: No Pedal Edema Neurological: Alert, Oriented, CN II-XII Intact, Normal Cognition, No Motor/ Sensory Deficits Psychiatric: Normal Affect, Normal Mood Skin Exam: Warm, Dry, Intact, Normal Color, No Rash EKG INTERPRETATION EKG Date: 07/07/19 Time: 18:45 Rhythm: NSR Rate (Beats/Min): 62 [place]: Normal P-Wave: Present QRS: Normal ST-T: Normal QT: Normal Comparison: No Change Course - Vital Signs Last Recorded V/S: Last Vital Signs Temp 36.9 C 07/07/19 16:56 Pulse 66 07/07/19 17:31 Resp 18 07/07/19 17:31 BP 120/66 07/07/19 17:31 Pulse Ox 94 L 07/07/19 17:31 - Orders/Labs/Meds Orders: Active Orders 24 hr Category Date Time Status Cardiac Monitoring [RC] .As Directed Care 07/07/19 17:58 Active EKG Documentation Completion [RC] ASDIRECTED Care 07/07/19 17:58 Active EKG 12 Lead [EK] Routine Ther 07/07/19 17:57 Ordered Labs: Laboratory Tests 07/07/19 Range/Units 18:17 Troponin I < 0.017 (0.000-0.056) ng/mL Departure - Departure Time of Disposition: 20:03 Disposition: Home, Self-Care 01 Condition: Fair Clinical Impression: Angina pectoris Instructions: Angina Pectoris, [id number] Referrals: Adrian Leslie NP [Primary Care Provider] - Forms: ED Department Discharge Additional Instructions: Increase your Imdur starting tomorrow to a full tablet. Follow up with your web analytics developer as scheduled. Return if worse. Continue your other meds as currently. - My Orders Last 24 Hours: My Active Orders 07/07/19 17:57 EKG 12 Lead [EK] Routine 07/07/19 17:58 Cardiac Monitoring [RC] .As Directed EKG Documentation Completion [RC] ASDIRECTED - Assessment/Plan Last 24 Hours: My Active Orders 07/07/19 17:57 EKG 12 Lead [EK] Routine 07/07/19 17:58 Cardiac Monitoring [RC] .As Directed EKG Documentation Completion [RC] ASDIRECTED
== END 2019-07-07 20:21 | disposition home or self-care (01) ==
LOC: JP.ED 16:54
DX: I20.9 Angina pectoris, unspecified (principal); I10 Essential (primary) hypertension; E11.9 Type 2 diabetes mellitus without complications; I25.2 Old myocardial infarction; E78.00 Pure hypercholesterolemia, unspecified; Z88.8 Allergy status to other drugs, medicaments and biological substances; E66.9 Obesity, unspecified; Z68.30 Body mass index [BMI] 30.0-30.9, adult; Z91.013 Allergy to seafood; Z79.82 Long term (current) use of aspirin; Z88.1 Allergy status to other antibiotic agents; Z79.899 Other long term (current) drug therapy; Z91.018 Allergy to other foods; Z79.84 Long term (current) use of oral hypoglycemic drugs; Z90.49 Acquired absence of other specified parts of digestive tract
CPT/HCPCS: 36415; 84484; 93005; 99285-25

== ENCOUNTER 2019-07-21 11:42 | Emergency (ER) | payer BC ==
[2019-07-21] MEDS ORDERED: Sodium Chloride 0.9% 10 ML Syringe FLUSH PRN (12:11)
[2019-07-21] MEDS ORDERED: Nitroglycerin 0.4 MG Tab.SL SL PRN (12:11)
[2019-07-21] MEDS ORDERED: Morphine 4 MG/ML Syringe IVPUSH PRN (12:11)
--- NOTE | 2019-07-21 12:23 | EDM.PDOC ---
ED HPI GENERAL MEDICAL PROBLEM - General Chief Complaint: Chest Pain Stated Complaint: CHEST PAIN, SOB Time Seen by Provider: 07/21/19 12:09 Source of Information: Reports: Patient, Family, Old Records, RN Notes Reviewed History Limitations: Reports: No Limitations - History of Present Illness INITIAL COMMENTS - FREE TEXT/NARRATIVE: 59-year-old gentleman presents emergency department today complaint of chest pain, he has a known history of coronary artery disease had a visit with cardiology last week for ongoing unstable angina is scheduled for an angiogram within the next 2 weeks. For this particular event states he started having chest pain about one in the morning he did take aspirin and nitroglycerin which provided him some relief however he awoke this morning chest pain had returned rates its 3 out of 10. no shortness of breath no nausea vomiting no diaphoresis Left Chest Pain Score (Numeric/FACES): 3 - Related Data Allergies Allergy/AdvReac Type Severity Reaction Status Date / Time iodine Allergy Intermediate Hives Verified 02/21/19 22:50 atorvastatin [From Lipitor] Allergy Cannot Verified 06/15/19 18:20 Remember celecoxib [From Celebrex] Allergy Cannot Verified 06/15/19 18:20 Remember colchicine Allergy Cannot Verified 06/15/19 18:20 Remember doxycycline Allergy Pain Verified 06/15/19 18:20 Iodinated Contrast Media Allergy Cannot Verified 06/15/19 18:20 [Iodinated Contrast- Oral Remember and IV Dye] naltrexone Allergy Cannot Verified 06/15/19 18:20 Remember nebivolol HCl [From Bystolic] Allergy Shaking Verified 06/15/19 18:20 niacin Allergy Cannot Verified 06/15/19 18:20 Remember nifedipine [From Procardia] Allergy Hypertensio Verified 06/15/19 18:20 n prazosin HCl [From Minipress] Allergy Hypertensio Verified 06/15/19 18:20 n shellfish derived Allergy Cannot Verified 06/15/19 18:20 Remember tuberculin, purified protein Allergy Cannot Verified 06/15/19 18:20 deriva Remember wheat Allergy Cannot Verified 06/15/19 18:20 Remember Home Meds: Home Meds Atenolol [Tenormin] 25 mg PO BID 09/07/13 [History] Potassium Chloride [Potassium Chloride Solution] 20 meq PO DAILY 09/07/13 [ History] Rosuvastatin Calcium [Crestor] 40 mg PO BEDTIME 09/07/13 [History] Ascorbic Acid [Vitamin C] 500 mg PO DAILY 03/28/16 [History] Cyanocobalamin (Vitamin B-12) [Vitamin B-12] 4 tab PO DAILY 03/28/16 [History] Gluc HCl/Csa/Marta Hy/Hyalur Ac [Glucosamine Chondroitin] 1 each PO DAILY [History] Multivitamin [Multivitamins] 1 each PO DAILY 03/28/16 [History] Albuterol Sulfate [Proair Hfa] 2 puff IH Q4H PRN 08/01/16 [History] Aspirin [Halfprin] 81 mg PO DAILY 08/01/16 [History] Furosemide [Lasix] 20 mg PO DAILY 08/01/16 [History] Furosemide [Lasix] 40 mg PO BEDTIME 08/01/16 [History] Indomethacin [Indocin SR] 75 mg PO BIDMEALS PRN 08/01/16 [History] Loratadine [Claritin] 10 mg PO DAILY 08/01/16 [History] [place]-3/DHA/Epa/Fish Oil [[place]-3 Fish Oil 1,000 MG Sfgl] 1,000 mg PO DAILY [History] Vitamin-Lipotropic 1 tab PO DAILY 08/01/16 [History] Allopurinol [Zyloprim] 300 mg PO BID 08/14/16 [History] Ibuprofen 200 mg PO Q6HR PRN 08/16/16 [History] glipiZIDE [Glucotrol] 10 mg PO BID 06/15/19 [History] metFORMIN [Glucophage XR] 1,000 mg PO BIDMEALS 06/15/19 [History] Past Medical History HEENT History: Reports: Allergic Rhinitis, Impaired Vision Cardiovascular History: Reports: CAD, Heart Failure, Heart Murmur, High Cholesterol, Hypertension, SOB on Exertion, Stents Respiratory History: Reports: Pneumonia, Recurrent, Other (See Below) Other Respiratory History: seasonal allergies with use of albuterol as needed. Gastrointestinal History: Reports: Other (See Below) Other Gastrointestinal History: meckles diverticulosis Musculoskeletal History: Reports: Back Pain, Chronic, Fracture, Gout, Neck Pain , Chronic, Osteoarthritis Endocrine/Metabolic History: Reports: Diabetes, Type II, Obesity/BMI 30+ Hematologic History: Reports: Blood Transfusion(s) Dermatologic History: Reports: Venous Stasis Dermatitis - Infectious Disease History Infectious Disease History: Reports: Chicken Pox - Past Surgical History HEENT Surgical History: Reports: Oral Surgery Cardiovascular Surgical History: Reports: Coronary Artery Stent GI Surgical History: Reports: Appendectomy, EGD Male Surgical History: Reports: None Musculoskeletal Surgical History: Reports: Other (See Below) Other Musculoskeletal Surgeries/Procedures:: surgical repair of right bicep. left elbow bursa removed Social & Family History - Family History Family Medical History: Noncontributory Cardiac: Reports: CAD, High Cholesterol, Hypertension, [place] - Tobacco Use Smoking Status *Q: Never Smoker - Caffeine Use Caffeine Use: Reports: Coffee Other Caffeine Use: Pepsi - Recreational Drug Use Recreational Drug Use: No - Living Situation & Occupation Living situation: Reports: Occupation: Employed (lives with Liza in [place], [place]. 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[place], [place].) ED ROS GENERAL - Review of Systems Review Of Systems: See Below Constitutional: Reports: No Symptoms HEENT: Reports: No Symptoms Respiratory: Reports: No Symptoms Cardiovascular: Reports: Chest Pain GI/Abdominal: Reports: No Symptoms ED EXAM, GENERAL - Physical Exam Exam: See Below Exam Limited By: No Limitations General Appearance: Alert, WD/WN, No Apparent Distress Head: Atraumatic, Normocephalic Neck: Normal Inspection Respiratory/Chest: No Respiratory Distress, Lungs Clear, Normal Breath Sounds, No Accessory Muscle Use, Chest Non-Tender Cardiovascular: Regular Rate, Rhythm, No Murmur GI/Abdominal: Soft, Non-Tender Course - Vital Signs Last Recorded V/S: Last Vital Signs Temp 95.8 F 07/21/19 12:01 Pulse 62 07/21/19 15:41 Resp 15 07/21/19 15:41 BP 204/116 H 07/21/19 15:41 Pulse Ox 94 L 07/21/19 15:41 - Orders/Labs/Meds Orders: Active Orders 24 hr Category Date Time Status Cardiac Monitoring [RC] .As Directed Care 07/21/19 12:11 Active EKG Documentation Completion [RC] ASDIRECTED Care 07/21/19 12:12 Active Peripheral IV Care [RC] . DIRECTED Care 07/21/19 12:12 Active Morphine Med 07/21/19 12:11 Active 4 mg IVPUSH Q10M PRN Nitroglycerin [Nitrostat] Med 07/21/19 12:11 Active 0.4 mg SL Q5M PRN Sodium Chloride 0.9% [Saline Flush] Med 07/21/19 12:11 Active 10 ml FLUSH ASDIRECTED PRN Peripheral IV Insertion Adult [OM.PC] Stat Oth 07/21/19 12:11 Ordered Saline Lock Insert [OM.PC] Stat Oth 07/21/19 12:11 Ordered EKG 12 Lead [EK] Stat Ther 07/21/19 12:12 Ordered Medication Orders Morphine Sulfate (Morphine) 4 mg IVPUSH Q10M PRN PRN Reason: Chest Pain Stop: 07/22/19 12:11 Nitroglycerin (Nitrostat) 0.4 mg SL Q5M PRN PRN Reason: Chest Pain Stop: 07/22/19 12:11 Last Admin: 07/21/19 12:34 Dose: 0.4 mg Sodium Chloride (Saline Flush) 10 ml FLUSH ASDIRECTED PRN PRN Reason: Keep Vein Open Labs: Laboratory Tests 07/21/19 07/21/19 07/21/19 Range/Units 12:36 12:36 15:51 WBC 7.9 (4.5-11.0) K/uL RBC 4.30 (4.30-5.90) M/uL Hgb 12.7 (12.0-15.0) g/dL Hct 39.3 L (40.0-54.0) % MCV 91 (80-98) fL MCH 30 (27-31) pg MCHC 32 (32-36) % Plt Count 199 (150-400) K/uL Neut % (Auto) 64 (36-66) % Lymph % (Auto) 26 (24-44) % [place] % (Auto) 7 H (2-6) % Eos % (Auto) 3 (2-4) % Baso % (Auto) 1 (0-1) % Sodium 138 L (140-148) mmol/L Potassium 3.3 L (3.6-5.2) mmol/L Chloride 100 (100-108) mmol/L Carbon Dioxide 31 (21-32) mmol/L Anion Gap 10.3 (5.0-14.0) mmol/L BUN 19 H (7-18) mg/dL Creatinine 1.1 (0.8-1.3) mg/dL Est Cr Clr Drug Dosing 84.07 mL/min Estimated GFR (MDRD) > 60 (>60) Glucose 146 H (74-106) mg/dL Calcium 8.7 (8.5-10.1) mg/dL Total Bilirubin 0.2 (0.2-1.0) mg/dL AST 14 L (15-37) U/L ALT 31 (12-78) U/L Alkaline Phosphatase 75 (46-116) U/L Troponin I < 0.017 < 0.017 (0.000-0.056) ng/mL Total Protein 6.9 (6.4-8.2) g/dL Albumin 3.1 L (3.4-5.0) g/dL Globulin 3.8 H (2.3-3.5) g/dL Albumin/Globulin Ratio 0.8 L (1.2-2.2) Meds: Medications Generic Name Dose Route Start Last Admin Trade Name Freq PRN Reason Stop Dose Admin Morphine Sulfate 4 mg 07/21/19 12:11 Morphine IVPUSH 07/22/19 12:11 Q10M PRN Chest Pain Nitroglycerin 0.4 mg 07/21/19 12:11 07/21/19 12:34 Nitrostat SL 07/22/19 12:11 0.4 mg Q5M PRN Administration Chest Pain Sodium Chloride 10 ml 07/21/19 12:11 Saline Flush FLUSH ASDIRECTED PRN Keep Vein Open - Re-Assessments/Exams Free Text/Narrative Re-Assessment/Exam: 07/21/19 14:38 Called discussed case with his infantry weapons officer Dr. Lambert at 1430 recommended a set of troponins if both negative call scheduling and set up for angiogram, if any of the troponins are positive I will contact her again for further treatment plan. Departure - Departure Time of Disposition: 16:24 Disposition: Home, Self-Care 01 Condition: Fair Clinical Impression: Unstable angina Referrals: Adrian Leslie PRODUCT SAFETY TEST ENGINEER [Primary Care Provider] - Forms: ED Department Discharge Additional Instructions: Please report for your cardiac catheterization tomorrow morning call return to the emergency department worsening of symptoms - My Orders Last 24 Hours: My Active Orders 07/21/19 12:11 Cardiac Monitoring [RC] .As Directed Morphine 4 mg IVPUSH Q10M PRN Nitroglycerin [Nitrostat] 0.4 mg SL Q5M PRN Sodium Chloride 0.9% [Saline Flush] 10 ml FLUSH ASDIRECTED PRN Peripheral IV Insertion Adult [OM.PC] Stat Saline Lock Insert [OM.PC] Stat 07/21/19 12:12 EKG Documentation Completion [RC] ASDIRECTED Peripheral IV Care [RC] . DIRECTED EKG 12 Lead [EK] Stat - Assessment/Plan Last 24 Hours: My Active Orders 07/21/19 12:11 Cardiac Monitoring [RC] .As Directed Morphine 4 mg IVPUSH Q10M PRN Nitroglycerin [Nitrostat] 0.4 mg SL Q5M PRN Sodium Chloride 0.9% [Saline Flush] 10 ml FLUSH ASDIRECTED PRN Peripheral IV Insertion Adult [OM.PC] Stat Saline Lock Insert [OM.PC] Stat 07/21/19 12:12 EKG Documentation Completion [RC] ASDIRECTED Peripheral IV Care [RC] . DIRECTED EKG 12 Lead [EK] Stat Plan: Assessment Acuity = acute on chronic Site and laterality = unstable angina Etiology = unknown etiology Manifestations = none Location of injury = Home Lab values = CBC unremarkable, potassium low at 3.3 consistent with hypokalemia troponin was negative 2 EKG demonstrates normal sinus rhythm chest x-ray shows no acute process Plan He is scheduled for cardiac angiogram tomorrow morning at 7:30, he'll be discharged from the hospital he will travel to [place] for that procedure This note was dictated using [employer] voice recognition software please call with any questions on syntax or grammar.
--- NOTE | 2019-07-21 15:20 | CR ---
CHEST: Portable 07/21/2019 at 1245 CLINICAL HISTORY:Chest pain COMPARISON:02/21/2019 FINDINGS: Heart size is normal. There are atherosclerotic changes in the aorta.. 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
[2019-07-21 15:42] VITALS: BP 204/116
== END 2019-07-21 16:34 | disposition home or self-care (01) ==
LOC: JP.ED 11:42
DX: I20.0 Unstable angina (principal); E11.59 Type 2 diabetes mellitus with other circulatory complications; I11.0 Hypertensive heart disease with heart failure; I50.9 Heart failure, unspecified; M10.9 Gout, unspecified; Z91.048 Other nonmedicinal substance allergy status; Z88.8 Allergy status to other drugs, medicaments and biological substances; Z88.1 Allergy status to other antibiotic agents; Z91.041 Radiographic dye allergy status; Z91.013 Allergy to seafood; Z91.018 Allergy to other foods; Z79.82 Long term (current) use of aspirin; Z79.84 Long term (current) use of oral hypoglycemic drugs; Z79.899 Other long term (current) drug therapy
CPT/HCPCS: 36415; 71045; 80053; 84484; 85025; 93005; 99285; A9270

== ENCOUNTER 2019-07-31 17:35 | Emergency (ER) | payer BC ==
[2019-07-31] MEDS ORDERED: Sodium Chloride 0.9% 1,000 ML IV SCH (18:30)
--- NOTE | 2019-07-31 18:38 | EDM.PDOC ---
ED HPI GENERAL MEDICAL PROBLEM - General Chief Complaint: Cardiovascular Problem Stated Complaint: BLOOD PRESSURE ISSUES Time Seen by Provider: 07/31/19 17:55 Source of Information: Reports: Patient History Limitations: Reports: No Limitations - History of Present Illness INITIAL COMMENTS - FREE TEXT/NARRATIVE: 59 yo male presents to ER with a near-syncope episode at work this afternoon. 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 He then went home, on arrival his blood pressure had returned to normal. He is status post 2 stent placement by [facility] last month. He does report one episode of brief chest pain early this AM. current no chest pain or SOB. this is his second episode since stent placement of near syncope - Related Data Allergies Allergy/AdvReac Type Severity Reaction Status Date / Time iodine Allergy Intermediate Hives Verified 07/31/19 17:55 atorvastatin [From Lipitor] Allergy Cannot Verified 07/31/19 17:55 Remember celecoxib [From Celebrex] Allergy Cannot Verified 07/31/19 17:55 Remember colchicine Allergy Cannot Verified 07/31/19 17:55 Remember doxycycline Allergy Pain Verified 07/31/19 17:55 Iodinated Contrast Media Allergy Cannot Verified 07/31/19 17:55 [Iodinated Contrast- Oral Remember and IV Dye] naltrexone Allergy Cannot Verified 07/31/19 17:55 Remember nebivolol HCl [From Bystolic] Allergy Shaking Verified 07/31/19 17:55 niacin Allergy Cannot Verified 07/31/19 17:55 Remember nifedipine [From Procardia] Allergy Hypertensio Verified 07/31/19 17:55 n prazosin HCl [From Minipress] Allergy Hypertensio Verified 07/31/19 17:55 n shellfish derived Allergy Cannot Verified 07/31/19 17:55 Remember tuberculin, purified protein Allergy Cannot Verified 07/31/19 17:55 deriva Remember wheat Allergy Cannot Verified 07/31/19 17:55 Remember Home Meds: Home Meds Atenolol [Tenormin] 25 mg PO DAILY 09/07/13 [History] Potassium Chloride [Potassium Chloride Solution] 20 meq PO DAILY 09/07/13 [ History] Rosuvastatin Calcium [Crestor] 40 mg PO BEDTIME 09/07/13 [History] Ascorbic Acid [Vitamin C] 500 mg PO DAILY 03/28/16 [History] Cyanocobalamin (Vitamin B-12) [Vitamin B-12] 4 tab PO DAILY 03/28/16 [History] Multivitamin [Multivitamins] 1 each PO DAILY 03/28/16 [History] Albuterol Sulfate [Proair Hfa] 2 puff IH Q4H PRN 08/01/16 [History] Aspirin [Halfprin] 81 mg PO DAILY 08/01/16 [History] Furosemide [Lasix] 40 mg PO DAILY 08/01/16 [History] Indomethacin [Indocin SR] 75 mg PO BIDMEALS PRN 08/01/16 [History] Loratadine [Claritin] 10 mg PO DAILY 08/01/16 [History] [place]-3/DHA/Epa/Fish Oil [[place]-3 Fish Oil 1,000 MG Sfgl] 1,000 mg PO DAILY [History] Vitamin-Lipotropic 1 tab PO DAILY 08/01/16 [History] Allopurinol [Zyloprim] 300 mg PO BID 08/14/16 [History] glipiZIDE [Glucotrol] 10 mg PO BID 06/15/19 [History] metFORMIN [Glucophage XR] 1,000 mg PO BIDMEALS 06/15/19 [History] Clopidogrel Bisulfate [Clopidogrel] 75 mg PO DAILY 07/27/19 [History] Lisinopril 10 mg PO DAILY 07/27/19 [History] Nitroglycerin 0.4 mg PO ASDIRECTED 07/27/19 [History] Past Medical History HEENT History: Reports: Allergic Rhinitis, Impaired Vision Cardiovascular History: Reports: CAD, Heart Failure, Heart Murmur, High Cholesterol, Hypertension, SOB on Exertion, Stents Respiratory History: Reports: Pneumonia, Recurrent, Other (See Below) Other Respiratory History: seasonal allergies with use of albuterol as needed. Gastrointestinal History: Reports: Other (See Below) Other Gastrointestinal History: meckles diverticulosis Musculoskeletal History: Reports: Back Pain, Chronic, Fracture, Gout, Neck Pain , Chronic, Osteoarthritis Endocrine/Metabolic History: Reports: Diabetes, Type II, Obesity/BMI 30+ Hematologic History: Reports: Blood Transfusion(s) Dermatologic History: Reports: Venous Stasis Dermatitis - Infectious Disease History Infectious Disease History: Reports: Chicken Pox - Past Surgical History HEENT Surgical History: Reports: Oral Surgery Cardiovascular Surgical History: Reports: Coronary Artery Stent GI Surgical History: Reports: Appendectomy, EGD Male Surgical History: Reports: None Musculoskeletal Surgical History: Reports: Other (See Below) Other Musculoskeletal Surgeries/Procedures:: surgical repair of right bicep. left elbow bursa removed Social & Family History - Family History Family Medical History: Noncontributory Cardiac: Reports: CAD, High Cholesterol, Hypertension, [place] - Tobacco Use Smoking Status *Q: Never Smoker - Caffeine Use Caffeine Use: Reports: Coffee Other Caffeine Use: Pepsi - Recreational Drug Use Recreational Drug Use: No - Living Situation & Occupation Living situation: Reports: Occupation: Employed (lives with Liza in [place], [place]. 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 No: Lymphadenopathy (R), Lymphadenopathy (L) Respiratory/Chest: No Respiratory Distress, Lungs Clear, Normal Breath Sounds, No Accessory Muscle Use, Chest Non-Tender. No: Crackles, Rhonchi, Wheezing Cardiovascular: Normal Peripheral Pulses, Regular Rate, Rhythm, Other (1+ pitting edema LE) Neurological: Alert, Oriented Skin Exam: Warm, Dry, Intact Course - Vital Signs Last Recorded V/S: Last Vital Signs Temp 36.3 C 07/31/19 17:53 Pulse 77 07/31/19 19:05 Resp 16 07/31/19 19:05 BP 107/70 07/31/19 19:05 Pulse Ox 92 L 07/31/19 19:05 - Orders/Labs/Meds Orders: Active Orders 24 hr Category Date Time Status Cardiac Monitoring [RC] .As Directed Care 07/31/19 18:26 Active EKG Documentation Completion [RC] ASDIRECTED Care 07/31/19 18:27 Active Sodium Chloride 0.9% [Normal Saline] 1,000 ml Med 07/31/19 18:30 Active IV ASDIRECTED EKG 12 Lead [EK] Stat Ther 07/31/19 18:27 Ordered Medication Orders Sodium Chloride (Normal Saline) 1,000 mls @ 500 mls/hr IV ASDIRECTED [facility] Last Admin: 07/31/19 19:04 Dose: 500 mls/hr Labs: Laboratory Tests 07/31/19 Range/Units 18:38 Sodium 137 L (140-148) mmol/L Potassium 4.5 (3.6-5.2) mmol/L Chloride 100 (100-108) mmol/L Carbon Dioxide 25 (21-32) mmol/L Anion Gap 16.5 H (5.0-14.0) mmol/L BUN 16 (7-18) mg/dL Creatinine 1.2 (0.8-1.3) mg/dL Est Cr Clr Drug Dosing 74.91 mL/min Estimated GFR (MDRD) > 60 (>60) Glucose 98 (74-106) mg/dL Calcium 10.0 (8.5-10.1) mg/dL Troponin I < 0.017 (0.000-0.056) ng/mL Meds: Medications Generic Name Dose Route Start Last Admin Trade Name Kaydenq PRN Reason Stop Dose Admin Sodium Chloride 1,000 mls @ 500 mls/hr 07/31/19 18:30 07/31/19 19:04 Normal Saline IV 500 mls/hr ASDIRECTED [facility] Administration - Re-Assessments/Exams Free Text/Narrative Re-Assessment/Exam: 07/31/19 19:41 EKG NSR, trp negative, mildly hyponatremic. symptoms have resolved. encouraged pt to increase fluid intake and add a sports drink to daily regimen Departure - Departure Time of Disposition: 19:42 Disposition: Home, Self-Care 01 Condition: Good Clinical Impression: Dehydration Hypotension Qualifiers: Hypotension type: unspecified hypotension type Qualified Code(s): I95.9 - Hypotension, unspecified Instructions: Dehydration, Adult, [id number] Referrals: Adrian Leslie NP [Primary Care Provider] - Forms: ED Department Discharge Additional Instructions: increase fluid intake to 64 ounces per day add one no calory sports drink to daily fluid intake talk with your primary care provider about hypotension and your medications follow-up saturday morning with your primary care provider - My Orders Last 24 Hours: My Active Orders 07/31/19 18:26 Cardiac Monitoring [RC] .As Directed 07/31/19 18:27 EKG Documentation Completion [RC] ASDIRECTED EKG 12 Lead [EK] Stat 07/31/19 18:30 Sodium Chloride 0.9% [Normal Saline] 1,000 ml IV ASDIRECTED - Assessment/Plan Last 24 Hours: My Active Orders 07/31/19 18:26 Cardiac Monitoring [RC] .As Directed 07/31/19 18:27 EKG Documentation Completion [RC] ASDIRECTED EKG 12 Lead [EK] Stat 07/31/19 18:30 Sodium Chloride 0.9% [Normal Saline] 1,000 ml IV ASDIRECTED
[2019-07-31 19:07] VITALS: BP 107/70; PULSE 77
== END 2019-07-31 20:44 | disposition home or self-care (01) ==
LOC: JP.ED 17:35
DX: E86.0 Dehydration (principal); I95.9 Hypotension, unspecified; I11.0 Hypertensive heart disease with heart failure; I50.9 Heart failure, unspecified; E78.00 Pure hypercholesterolemia, unspecified; E11.9 Type 2 diabetes mellitus without complications; Z91.048 Other nonmedicinal substance allergy status; Z88.8 Allergy status to other drugs, medicaments and biological substances; Z91.041 Radiographic dye allergy status; Z88.1 Allergy status to other antibiotic agents; Z91.013 Allergy to seafood; Z91.018 Allergy to other foods; Z79.899 Other long term (current) drug therapy; Z79.82 Long term (current) use of aspirin
CPT/HCPCS: 36415; 80048; 84484; 93005; 96360; 96361; 99284; J7030

== ENCOUNTER 2019-08-14 12:41 | Emergency (ER) | payer BC ==
[2019-08-14] MEDS ORDERED: Sodium Chloride 0.9% 10 ML Syringe FLUSH PRN (13:08)
[2019-08-14] MEDS ORDERED: Aspirin 81 MG Tab.Chew PO ONE (13:09)
--- NOTE | 2019-08-14 13:14 | EDM.PDOC ---
ED HPI GENERAL MEDICAL PROBLEM - General Chief Complaint: Chest Pain Stated Complaint: CHEST PAIN Time Seen by Provider: 08/14/19 13:05 Source of Information: Reports: Patient History Limitations: Reports: No Limitations - History of Present Illness INITIAL COMMENTS - FREE TEXT/NARRATIVE: Shamir is a 59 year old male, presents to the ED today with his with c/o chest pain across his chest starting at 1100 today, two episodes both relieved with nitro. Took one baby aspirin this morning prior to arrival. Patient is currently symptoms free. Patient denies any shortness of breath. Patient was at [facility] on July 22 for placement of 3 stents, patient reports he has one vessel that was left 100% occluded that he was told should not cause any problems for him. Patient has been on Plavix since that time. Patient denies any fever/chills/LE swelling or recent weight gain. Patient called his clinic who encouraged him to come in to be seen. Onset: Today Onset Time: 11:00 Chest Pain Score (Numeric/FACES): 2 - Related Data Allergies Allergy/AdvReac Type Severity Reaction Status Date / Time iodine Allergy Intermediate Hives Verified 08/14/19 12:53 atorvastatin [From Lipitor] Allergy Cannot Verified 08/14/19 12:53 Remember celecoxib [From Celebrex] Allergy Cannot Verified 08/14/19 12:53 Remember colchicine Allergy Cannot Verified 08/14/19 12:53 Remember doxycycline Allergy Pain Verified 08/14/19 12:53 Iodinated Contrast Media Allergy Cannot Verified 08/14/19 12:53 [Iodinated Contrast- Oral Remember and IV Dye] naltrexone Allergy Cannot Verified 08/14/19 12:53 Remember nebivolol HCl [From Bystolic] Allergy Shaking Verified 08/14/19 12:53 niacin Allergy Cannot Verified 08/14/19 12:53 Remember nifedipine [From Procardia] Allergy Hypertensio Verified 08/14/19 12:53 n prazosin HCl [From Minipress] Allergy Hypertensio Verified 08/14/19 12:53 n shellfish derived Allergy Cannot Verified 08/14/19 12:53 Remember tuberculin, purified protein Allergy Cannot Verified 08/14/19 12:53 deriva Remember wheat Allergy Cannot Verified 08/14/19 12:53 Remember Home Meds: Home Meds Atenolol [Tenormin] 25 mg PO BID 09/07/13 [History] Potassium Chloride [Potassium Chloride Solution] 20 meq PO DAILY 09/07/13 [ History] Rosuvastatin Calcium [Crestor] 40 mg PO BEDTIME 09/07/13 [History] Cyanocobalamin (Vitamin B-12) [Vitamin B-12] 2 tab PO BID 03/28/16 [History] Albuterol Sulfate [Proair Hfa] 2 puff IH Q4H PRN 08/01/16 [History] Aspirin [Halfprin] 81 mg PO DAILY 08/01/16 [History] Furosemide [Lasix] 20 mg PO DAILY 08/01/16 [History] Allopurinol [Zyloprim] 300 mg PO BID 08/14/16 [History] glipiZIDE [Glucotrol] 10 mg PO BID 06/15/19 [History] Clopidogrel Bisulfate [Clopidogrel] 75 mg PO DAILY 07/27/19 [History] Lisinopril 10 mg PO DAILY 07/27/19 [History] Nitroglycerin 0.4 mg PO ASDIRECTED 07/27/19 [History] Ascorbate Calcium [Vitamin C] 1 tab PO DAILY 08/14/19 [History] Azelastine [Optivar 0.05% Ophth Soln] 1 drop EYEBOTH BID 08/14/19 [History] Furosemide [Lasix] 40 mg PO BEDTIME 08/14/19 [History] Isosorbide Mononitrate [Imdur] 2 tab PO DAILY 08/14/19 [History] Liraglutide [Victoza] 1.2 mg SUBCUT DAILY 08/14/19 [History] Magnesium Oxide [Magnesium] 400 mg PO BID 08/14/19 [History] predniSONE [Prednisone] 1 tab PO DAILY 08/14/19 [History] prednisoLONE acetate [Pred Forte 1% Ophth Susp] 1 drop EYEBOTH QID 08/14/19 [ History] Past Medical History HEENT History: Reports: Allergic Rhinitis, Impaired Vision Cardiovascular History: Reports: CAD, Heart Failure, Heart Murmur, High Cholesterol, Hypertension, SOB on Exertion, Stents Respiratory History: Reports: Pneumonia, Recurrent, Other (See Below) Other Respiratory History: seasonal allergies with use of albuterol as needed. Gastrointestinal History: Reports: Other (See Below) Other Gastrointestinal History: meckles diverticulosis Musculoskeletal History: Reports: Back Pain, Chronic, Fracture, Gout, Neck Pain , Chronic, Osteoarthritis Endocrine/Metabolic History: Reports: Diabetes, Type II, Obesity/BMI 30+ Hematologic History: Reports: Blood Transfusion(s) Dermatologic History: Reports: Venous Stasis Dermatitis - Infectious Disease History Infectious Disease History: Reports: Chicken Pox - Past Surgical History HEENT Surgical History: Reports: Oral Surgery Cardiovascular Surgical History: Reports: Coronary Artery Stent GI Surgical History: Reports: Appendectomy, EGD Musculoskeletal Surgical History: Reports: Other (See Below) Other Musculoskeletal Surgeries/Procedures:: surgical repair of right bicep. left elbow bursa removed Social & Family History - Family History Family Medical History: Noncontributory Cardiac: Reports: CAD, High Cholesterol, Hypertension, [place] - Tobacco Use Smoking Status *Q: Never Smoker - Caffeine Use Caffeine Use: Reports: Coffee Other Caffeine Use: Pepsi - Recreational Drug Use Recreational Drug Use: No - Living Situation & Occupation Living situation: Reports: Occupation: Employed (lives with Liza in [place], [place]. 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[place], [place].) ED ROS GENERAL - Review of Systems Review Of Systems: See Below ED EXAM, GENERAL - Physical Exam Exam: See Below Exam Limited By: No Limitations General Appearance: Alert, WD/WN, No Apparent Distress Eye Exam: Bilateral Eye: EOMI Ears: Normal External Exam Head: Atraumatic Neck: Normal Inspection, Non-Tender Respiratory/Chest: No Respiratory Distress, Lungs Clear, Normal Breath Sounds Cardiovascular: Regular Rate, Rhythm, No Murmur GI/Abdominal: Soft, Non-Tender, No Distention Back Exam: Normal Inspection, Full Range of Motion Extremities: Normal Inspection, Normal Range of Motion Neurological: Alert, Oriented, CN II-XII Intact Psychiatric: Normal Affect, Normal Mood Skin Exam: Warm, Dry, Intact Lymphatic: No Adenopathy EKG INTERPRETATION EKG Date: 08/14/19 Time: 13:00 Rhythm: NSR Vale: Normal P-Wave: Present QRS: Normal ST-T: Normal QT: Normal Comparison: No Change Course - Vital Signs Last Recorded V/S: Last Vital Signs Temp 35.5 C 08/14/19 12:51 Pulse 57 L 08/14/19 15:15 Resp 15 08/14/19 15:15 BP 138/83 08/14/19 15:15 Pulse Ox 96 08/14/19 15:15 Sahmir is a 59 year old male who presents to the ED today with c/o chest pain that occurred two times prior to arrival both times relieved with NTG prior to arrival. Patient arrives here symptom free. Patient arrives here hemodynamically stable, afebrile, exam is reassuring with normal heart sounds. EKG with no acute ischemic changes, no ectopy. Patient's blood work returns with a very mild leukocytosis of 11.6, HGB stable, CRP just mildly elevated at 0.39, initial troponin is undetectable. Patient's CMP returns reassuring except for a mildly low potassium of 3.3. CXR clear. Patient updated on plan of care, will obtain a second troponin at 1600 and if this remains negative likely this is stable angina and patient can follow up with primary cardiology. 1700-second troponin remains undetectable. Patient's work up today consistent with stable angina. Given lack of any symptoms while in the ED with reassuring work up and exam findings I feel he is stable to be discharged home and follow up with his primary mirror framer. Patient can continue home medications as previously prescribed. Reasons to return to the ED discussed, patient agreeable and discharged in stable condition. - Orders/Labs/Meds Orders: Active Orders 24 hr Category Date Time Status EKG Documentation Completion [RC] ASDIRECTED Care 08/14/19 12:43 Active Peripheral IV Care [RC] . DIRECTED Care 08/14/19 13:08 Active Sodium Chloride 0.9% [Saline Flush] Med 08/14/19 13:08 Active 10 ml FLUSH ASDIRECTED PRN Peripheral IV Insertion Adult [OM.PC] Routine Oth 08/14/19 13:08 Ordered EKG 12 Lead [EK] Stat Ther 08/14/19 12:43 Ordered Medication Orders Sodium Chloride (Saline Flush) 10 ml FLUSH ASDIRECTED PRN PRN Reason: Keep Vein Open Labs: Laboratory Tests 08/14/19 08/14/19 08/14/19 Range/Units 13:19 13:19 16:34 WBC 11.6 H (4.5-11.0) K/uL RBC 4.64 (4.30-5.90) M/uL Hgb 13.6 (12.0-15.0) g/dL Hct 41.7 (40.0-54.0) % MCV 90 (80-98) fL MCH 29 (27-31) pg MCHC 33 (32-36) % Plt Count 272 (150-400) K/uL Neut % (Auto) 54 (36-66) % Lymph % (Auto) 31 (24-44) % Ponce % (Auto) 10 H (2-6) % Eos % (Auto) 5 H (2-4) % Baso % (Auto) 1 (0-1) % Sodium 140 (140-148) mmol/L Potassium 3.3 L (3.6-5.2) mmol/L Chloride 104 (100-108) mmol/L Carbon Dioxide 26 (21-32) mmol/L Anion Gap 13.3 (5.0-14.0) mmol/L BUN 16 (7-18) mg/dL Creatinine 1.0 (0.8-1.3) mg/dL Est Cr Clr Drug Dosing 89.89 mL/min Estimated GFR (MDRD) > 60 (>60) Glucose 81 (74-106) mg/dL Calcium 8.7 (8.5-10.1) mg/dL Total Bilirubin 0.3 (0.2-1.0) mg/dL AST 12 L (15-37) U/L ALT 27 (12-78) U/L Alkaline Phosphatase 82 (46-116) U/L Troponin I < 0.017 < 0.017 (0.000-0.056) ng/mL C-Reactive Protein 0.39 H (0.0-0.3) mg/dL Total Protein 7.4 (6.4-8.2) g/dL Albumin 3.5 (3.4-5.0) g/dL Globulin 3.9 H (2.3-3.5) g/dL Albumin/Globulin Ratio 0.9 L (1.2-2.2) Meds: Medications Generic Name Dose Route Start Last Admin Trade Name Freq PRN Reason Stop Dose Admin Sodium Chloride 10 ml 08/14/19 13:08 Saline Flush FLUSH ASDIRECTED PRN Keep Vein Open Discontinued Medications Generic Name Dose Route Start Last Admin Trade Name Freq PRN Reason Stop Dose Admin Aspirin 243 mg 08/14/19 13:09 08/14/19 14:07 Aspirin PO 08/14/19 13:10 243 mg ONETIME ONE Administration Potassium Chloride 40 meq 08/14/19 13:54 08/14/19 14:07 Klor-Con M20 PO 08/14/19 13:55 40 meq ONETIME ONE Administration Departure - Departure Time of Disposition: 17:30 Disposition: Home, Self-Care 01 Condition: Good Clinical Impression: Stable angina Instructions: Angina Pectoris Referrals: Adrian Leslie PROPERTY STAFF ACCOUNTANT [Primary Care Provider] - Forms: ED Department Discharge Additional Instructions: Continue home medications as previously prescribed. Touch base with cardiology on Saturday. Return here with any worsening/concerning symptoms. - My Orders Last 24 Hours: My Active Orders 08/14/19 12:43 EKG Documentation Completion [RC] ASDIRECTED EKG 12 Lead [EK] Stat 08/14/19 13:08 Peripheral IV Care [RC] . DIRECTED Sodium Chloride 0.9% [Saline Flush] 10 ml FLUSH ASDIRECTED PRN Peripheral IV Insertion Adult [OM.PC] Routine - Assessment/Plan Last 24 Hours: My Active Orders 08/14/19 12:43 EKG Documentation Completion [RC] ASDIRECTED EKG 12 Lead [EK] Stat 08/14/19 13:08 Peripheral IV Care [RC] . DIRECTED Sodium Chloride 0.9% [Saline Flush] 10 ml FLUSH ASDIRECTED PRN Peripheral IV Insertion Adult [OM.PC] Routine
--- NOTE | 2019-08-14 13:39 | CRLCR ---
INDICATION: Chest pain TECHNIQUE: Chest 2 views COMPARISON: 07/21/2019 FINDINGS: Cardiovascular and mediastinum: Heart size and vasculature are normal in caliber and appearance. Lungs and pleural spaces: Mild central peribronchial cuffing is unchanged. Lungs and pleural spaces are otherwise clear. Bones and soft tissues: No significant findings. IMPRESSION: No acute findings and no significant changes from the prior exam. Dictated by Dev Mix MD @ Aug 14 2019 1:33PM Signed by Dr. Dev Mix @ Aug 14 2019 1:36PM
[2019-08-14] MEDS ORDERED: Potassium Chloride 20 MEQ Tab.ER PO ONE (13:54)
[2019-08-14 17:34] VITALS: BP 114/75; PULSE 58
== END 2019-08-14 17:49 | disposition home or self-care (01) ==
LOC: JP.ED 12:41
DX: I20.9 Angina pectoris, unspecified (principal); I11.0 Hypertensive heart disease with heart failure; I50.9 Heart failure, unspecified; E66.9 Obesity, unspecified; E11.9 Type 2 diabetes mellitus without complications; Z79.899 Other long term (current) drug therapy; Z91.013 Allergy to seafood; Z91.018 Allergy to other foods; Z91.041 Radiographic dye allergy status; Z88.1 Allergy status to other antibiotic agents; Z79.82 Long term (current) use of aspirin; Z90.49 Acquired absence of other specified parts of digestive tract; Z68.42 Body mass index [BMI] 45.0-49.9, adult
CPT/HCPCS: 36415; 71046; 80053; 84484; 85025; 86140; 93005; 99285; A9270

== ENCOUNTER 2019-09-21 08:51 | Emergency (ER) | payer BC ==
[2019-09-21] MEDS ORDERED: Sodium Chloride 0.9% 10 ML Syringe FLUSH PRN (09:31)
[2019-09-21] MEDS ORDERED: Aspirin 81 MG Tab.Chew PO ONE (09:31)
[2019-09-21 09:32] VITALS: BP 134/75; PULSE 68
--- NOTE | 2019-09-21 09:49 | EDM.PDOC ---
ED HPI GENERAL MEDICAL PROBLEM - General Chief Complaint: Cardiovascular Problem Stated Complaint: CHEST PAIN, FLUTTERING,COUGHING, PRESSURE Time Seen by Provider: 09/21/19 09:31 Source of Information: Reports: Patient, Family, RN Notes Reviewed History Limitations: Reports: No Limitations - History of Present Illness INITIAL COMMENTS - FREE TEXT/NARRATIVE: 59-year-old gentleman presents emergency department today complaint of chest pain, he has a known history coronary artery disease recently had stenting done first part of July of this year he states over last 3 days he's had chest pain last for an hour or longer it is relieved by nitroglycerin is exacerbated by exercise no radiation no nausea vomiting does feel short of breath. Chest Pain Score (Numeric/FACES): 3 - Related Data Allergies Allergy/AdvReac Type Severity Reaction Status Date / Time iodine Allergy Intermediate Hives Verified 09/21/19 09:19 atorvastatin [From Lipitor] Allergy Cannot Verified 09/21/19 09:19 Remember celecoxib [From Celebrex] Allergy Cannot Verified 09/21/19 09:19 Remember colchicine Allergy Cannot Verified 09/21/19 09:19 Remember doxycycline Allergy Pain Verified 09/21/19 09:19 Iodinated Contrast Media Allergy Cannot Verified 09/21/19 09:19 [Iodinated Contrast- Oral Remember and IV Dye] naltrexone Allergy Cannot Verified 09/21/19 09:19 Remember nebivolol HCl [From Bystolic] Allergy Shaking Verified 09/21/19 09:19 niacin Allergy Cannot Verified 09/21/19 09:19 Remember nifedipine [From Procardia] Allergy Hypertensio Verified 09/21/19 09:19 n prazosin HCl [From Minipress] Allergy Hypertensio Verified 09/21/19 09:19 n shellfish derived Allergy Cannot Verified 08/14/19 12:53 Remember tuberculin, purified protein Allergy Cannot Verified 09/21/19 09:19 deriva Remember wheat Allergy Cannot Verified 09/21/19 09:19 Remember Home Meds: Home Meds Atenolol [Tenormin] 25 mg PO BID 09/07/13 [History] Potassium Chloride [Potassium Chloride Solution] 20 meq PO DAILY 09/07/13 [ History] Rosuvastatin Calcium [Crestor] 40 mg PO BEDTIME 09/07/13 [History] Cyanocobalamin (Vitamin B-12) [Vitamin B-12] 2 tab PO BID 03/28/16 [History] Albuterol Sulfate [Proair Hfa] 2 puff IH Q4H PRN 08/01/16 [History] Aspirin [Halfprin] 81 mg PO DAILY 08/01/16 [History] Allopurinol [Zyloprim] 300 mg PO BID 08/14/16 [History] glipiZIDE [Glucotrol] 10 mg PO BID 06/15/19 [History] Clopidogrel Bisulfate [Clopidogrel] 75 mg PO DAILY 07/27/19 [History] Lisinopril 10 mg PO DAILY 07/27/19 [History] Nitroglycerin 0.4 mg PO ASDIRECTED 07/27/19 [History] Ascorbate Calcium [Vitamin C] 1 tab PO DAILY 08/14/19 [History] Azelastine [Optivar 0.05% Ophth Soln] 1 drop EYEBOTH BID 08/14/19 [History] Furosemide [Lasix] 40 mg PO DAILY 08/14/19 [History] Isosorbide Mononitrate [Imdur] 2 tab PO DAILY 08/14/19 [History] Liraglutide [Victoza] 1.2 mg SUBCUT DAILY 08/14/19 [History] Magnesium Oxide [Magnesium] 400 mg PO BID 08/14/19 [History] prednisoLONE acetate [Pred Forte 1% Ophth Susp] 1 drop EYEBOTH QID 08/14/19 [ History] Past Medical History HEENT History: Reports: Allergic Rhinitis, Impaired Vision Cardiovascular History: Reports: CAD, Heart Failure, Heart Murmur, High Cholesterol, Hypertension, SOB on Exertion, Stents Respiratory History: Reports: Pneumonia, Recurrent, Other (See Below) Other Respiratory History: seasonal allergies with use of albuterol as needed. Gastrointestinal History: Reports: Other (See Below) Other Gastrointestinal History: meckles diverticulosis Musculoskeletal History: Reports: Back Pain, Chronic, Fracture, Gout, Neck Pain , Chronic, Osteoarthritis Endocrine/Metabolic History: Reports: Diabetes, Type II, Obesity/BMI 30+ Hematologic History: Reports: Blood Transfusion(s) Dermatologic History: Reports: Venous Stasis Dermatitis - Infectious Disease History Infectious Disease History: Reports: Chicken Pox - Past Surgical History HEENT Surgical History: Reports: Oral Surgery Cardiovascular Surgical History: Reports: Coronary Artery Stent GI Surgical History: Reports: Appendectomy, EGD Musculoskeletal Surgical History: Reports: Other (See Below) Other Musculoskeletal Surgeries/Procedures:: surgical repair of right bicep. left elbow bursa removed Social & Family History - Family History Family Medical History: Noncontributory Cardiac: Reports: CAD, High Cholesterol, Hypertension, [place] - Tobacco Use Smoking Status *Q: Never Smoker - Caffeine Use Caffeine Use: Reports: Coffee Other Caffeine Use: Pepsi - Recreational Drug Use Recreational Drug Use: No - Living Situation & Occupation Living situation: Reports: Occupation: Employed (lives with Liza in [place], [place]. 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[place], [place].) ED ROS GENERAL - Review of Systems Review Of Systems: See Below Constitutional: Reports: No Symptoms HEENT: Reports: No Symptoms Respiratory: Reports: Shortness of Breath Cardiovascular: Reports: Chest Pain, Dyspnea on Exertion GI/Abdominal: Reports: No Symptoms : Reports: No Symptoms ED EXAM, GENERAL - Physical Exam Exam: See Below Exam Limited By: No Limitations General Appearance: Alert, WD/WN, No Apparent Distress Respiratory/Chest: No Respiratory Distress, Lungs Clear, Normal Breath Sounds, No Accessory Muscle Use, Chest Non-Tender Cardiovascular: Regular Rate, Rhythm, No Murmur GI/Abdominal: Soft, Non-Tender Course - Vital Signs Last Recorded V/S: Last Vital Signs Temp 98.8 F 09/21/19 09:25 Pulse 68 09/21/19 09:25 Resp 13 09/21/19 09:25 BP 134/75 09/21/19 09:25 Pulse Ox 95 09/21/19 09:25 - Orders/Labs/Meds Orders: Active Orders 24 hr Category Date Time Status Cardiac Monitoring [RC] .As Directed Care 09/21/19 09:31 Active EKG Documentation Completion [RC] ASDIRECTED Care 09/21/19 09:32 Active Peripheral IV Care [RC] . DIRECTED Care 09/21/19 09:32 Active Sodium Chloride 0.9% [Saline Flush] Med 09/21/19 09:31 Active 10 ml FLUSH ASDIRECTED PRN Peripheral IV Insertion Adult [OM.PC] Stat Oth 09/21/19 09:31 Ordered Saline Lock Insert [OM.PC] Stat Oth 09/21/19 09:31 Ordered EKG 12 Lead [EK] Stat Ther 09/21/19 09:32 Ordered Medication Orders Sodium Chloride (Saline Flush) 10 ml FLUSH ASDIRECTED PRN PRN Reason: Keep Vein Open Last Admin: 09/21/19 09:47 Dose: 10 ml Labs: Laboratory Tests 09/21/19 09/21/19 Range/Units 09:31 09:31 WBC 9.2 (4.5-11.0) K/uL RBC 4.65 (4.30-5.90) M/uL Hgb 13.8 (12.0-15.0) g/dL Hct 42.1 (40.0-54.0) % MCV 91 (80-98) fL MCH 30 (27-31) pg MCHC 33 (32-36) % Plt Count 210 (150-400) K/uL Neut % (Auto) 72 H (36-66) % Lymph % (Auto) 19 L (24-44) % [place] % (Auto) 7 H (2-6) % Eos % (Auto) 2 (2-4) % Baso % (Auto) 0 (0-1) % Sodium 138 L (140-148) mmol/L Potassium 3.4 L (3.6-5.2) mmol/L Chloride 99 L (100-108) mmol/L Carbon Dioxide 29 (21-32) mmol/L Anion Gap 13.4 (5.0-14.0) mmol/L BUN 16 (7-18) mg/dL Creatinine 1.0 (0.8-1.3) mg/dL Est Cr Clr Drug Dosing 91.83 mL/min Estimated GFR (MDRD) > 60 (>60) Glucose 154 H (74-106) mg/dL Calcium 9.0 (8.5-10.1) mg/dL Total Bilirubin 0.5 D (0.2-1.0) mg/dL AST 11 L (15-37) U/L ALT 26 (12-78) U/L Alkaline Phosphatase 83 (46-116) U/L Troponin I < 0.017 (0.000-0.056) ng/mL Total Protein 7.6 (6.4-8.2) g/dL Albumin 3.6 (3.4-5.0) g/dL Globulin 4.0 H (2.3-3.5) g/dL Albumin/Globulin Ratio 0.9 L (1.2-2.2) Meds: Medications Generic Name Dose Route Start Last Admin Trade Name Freq PRN Reason Stop Dose Admin Sodium Chloride 10 ml 09/21/19 09:31 09/21/19 09:47 Saline Flush FLUSH 10 ml ASDIRECTED PRN Administration Keep Vein Open Discontinued Medications Generic Name Dose Route Start Last Admin Trade Name Drew PRN Reason Stop Dose Admin Aspirin 324 mg 09/21/19 09:31 11 09:36 Aspirin PO 09/21/19 09:32 324 mg ONETIME ONE Administration Departure - Departure Time of Disposition: 11:29 Disposition: Home, Self-Care 01 Condition: Fair Clinical Impression: Chest pain Qualifiers: Chest pain type: unspecified Qualified Code(s): R07.9 - Chest pain, unspecified Referrals: Adrian Leslie OLDER ADULT SOCIAL WORK SPECIALIST [Primary Care Provider] - Forms: ED Department Discharge Additional Instructions: Please report to your stress test, please call Dr. Moise's office approximately 5-7 days after the stress test for further evaluation - My Orders Last 24 Hours: My Active Orders 09/21/19 09:31 Cardiac Monitoring [RC] .As Directed Sodium Chloride 0.9% [Saline Flush] 10 ml FLUSH ASDIRECTED PRN Peripheral IV Insertion Adult [OM.PC] Stat Saline Lock Insert [OM.PC] Stat 09/21/19 09:32 EKG Documentation Completion [RC] ASDIRECTED Peripheral IV Care [RC] . DIRECTED EKG 12 Lead [EK] Stat - Assessment/Plan Last 24 Hours: My Active Orders 09/21/19 09:31 Cardiac Monitoring [RC] .As Directed Sodium Chloride 0.9% [Saline Flush] 10 ml FLUSH ASDIRECTED PRN Peripheral IV Insertion Adult [OM.PC] Stat Saline Lock Insert [OM.PC] Stat 09/21/19 09:32 EKG Documentation Completion [RC] ASDIRECTED Peripheral IV Care [RC] . DIRECTED EKG 12 Lead [EK] Stat Plan: Assessment Acuity = acute Site and laterality = chest pain, kidney patient with known history coronary artery disease Etiology = concern for acute coronary syndrome Manifestations = none Location of injury = Home Lab values = CBC, CMP, troponin, EKG, chest x-ray all within normal limits Plan Called discussed case with Dr. Moise marble rubber at [facility] at 1110 , recommended nuclear stress test at this time. Therefore that test is been ordered hopefully will be done this week results will go to Dr. Moise for further plan and evaluation the patient will call to Alexandre Mendoza after his stress test for further follow-up This note was dictated using [employer] voice recognition software please call with any questions on syntax or grammar.
--- NOTE | 2019-09-21 10:12 | CR ---
CHEST: Portable 09/21/2019 at 09 39 CLINICAL HISTORY:Pain COMPARISON:07/21/2019 FINDINGS: Heart size is normal. Pulmonary vascularity is mildly cephalized. As may be chronic. There are atherosclerotic changes in the aorta. No infiltrates are seen. IMPRESSION: Mild vascular cephalization may be chronic No acute cardiopulmonary process
== END 2019-09-21 11:50 | disposition home or self-care (01) ==
LOC: JP.ED 08:51
DX: R07.89 Other chest pain (principal); R05 Cough; Z88.8 Allergy status to other drugs, medicaments and biological substances; Z88.6 Allergy status to analgesic agent; Z88.3 Allergy status to other anti-infective agents; Z91.041 Radiographic dye allergy status; Z91.013 Allergy to seafood; Z88.7 Allergy status to serum and vaccine; Z91.018 Allergy to other foods; E78.00 Pure hypercholesterolemia, unspecified; I25.10 Atherosclerotic heart disease of native coronary artery without angina pectoris; Z79.899 Other long term (current) drug therapy; Z79.82 Long term (current) use of aspirin; Z95.5 Presence of coronary angioplasty implant and graft; E66.9 Obesity, unspecified
CPT/HCPCS: 36415; 71045; 80053; 84484; 85025; 93005; 99285; A9270

== ENCOUNTER 2019-09-27 15:23 | Emergency (ER) | payer BC ==
[2019-09-27] MEDS ORDERED: Aspirin 81 MG Tab.Chew ONE (15:29)
[2019-09-27] MEDS ORDERED: Aspirin 81 MG Tab.Chew PO ONE (15:36)
[2019-09-27 15:40] VITALS: BP 155/97; PULSE 69
[2019-09-27] MEDS ORDERED: Sodium Chloride 0.9% 10 ML Syringe FLUSH ONE (15:43)
--- NOTE | 2019-09-27 16:17 | CRLCR ---
INDICATION: Shortness of breath. TECHNIQUE: Portable AP radiograph of the chest. COMPARISON: Chest radiograph 09/21/2019 FINDINGS: Cardiomediastinal silhouette: Normal heart size, allowing for portable technique. Atherosclerotic calcification at the aortic arch. Lungs and pleural space: Lungs are clear. No pleural effusion. No pneumothorax. Bones and soft tissues: No acute findings. IMPRESSION: No acute pulmonary abnormality. Dictated by Lisa Cervantes MD @ 09/27/2019 4:15:29 PM Dictated by: Lisa Cervantes MD @ 09/27/2019 16:15:33 (Electronically Signed)
--- NOTE | 2019-09-27 16:28 | EDM.PDOC ---
<YasMikala - Last Filed: 09/27/19 17:22> ED HPI GENERAL MEDICAL PROBLEM - General Chief Complaint: Chest Pain Stated Complaint: chest pains Time Seen by Provider: 09/27/19 16:23 Source of Information: Reports: Patient History Limitations: Reports: No Limitations - History of Present Illness INITIAL COMMENTS - FREE TEXT/NARRATIVE: pt arrived with a history of persistent chest pain on and off. He had a fair amount of chest pain He states when he walked to the deer stand he had a fair amount of pain. He does get relief with nitro. He was seen by Dr Officer and Officer clled to [facility] and they want a cardiac stress test, chemical. Onset: Gradual Duration: Hour(s): Location: Reports: Chest Associated Symptoms: Reports: Chest Pain, Shortness of Breath - Related Data Allergies Allergy/AdvReac Type Severity Reaction Status Date / Time iodine Allergy Intermediate Hives Verified 09/27/19 15:50 atorvastatin [From Lipitor] Allergy Cannot Verified 09/27/19 15:50 Remember celecoxib [From Celebrex] Allergy Cannot Verified 09/27/19 15:50 Remember colchicine Allergy Cannot Verified 09/27/19 15:50 Remember Iodinated Contrast Media Allergy Cannot Verified 09/27/19 15:50 [Iodinated Contrast- Oral Remember and IV Dye] naltrexone Allergy Cannot Verified 09/27/19 15:50 Remember niacin Allergy Cannot Verified 09/27/19 15:50 Remember nifedipine [From Procardia] Allergy Hypertensio Verified 09/27/19 15:50 n prazosin HCl [From Minipress] Allergy Hypertensio Verified 09/27/19 15:50 n shellfish derived Allergy Cannot Verified 09/27/19 15:50 Remember tuberculin, purified protein Allergy Cannot Verified 09/27/19 15:50 deriva Remember wheat Allergy Cannot Verified 09/27/19 15:50 Remember doxycycline AdvReac Pain Verified 09/27/19 15:50 nebivolol HCl [From Bystolic] AdvReac Shaking Verified 09/27/19 15:50 Home Meds: Home Meds Atenolol [Tenormin] 25 mg PO QAM 09/07/13 [History] Potassium Chloride [Potassium Chloride Solution] 20 meq PO DAILY 09/07/13 [ History] Rosuvastatin Calcium [Crestor] 40 mg PO BEDTIME 09/07/13 [History] Cyanocobalamin (Vitamin B-12) [Vitamin B-12] 2,000 mcg PO BID 03/28/16 [History] Albuterol Sulfate [Proair Hfa] 2 puff IH Q4H PRN 08/01/16 [History] Aspirin [Halfprin] 81 mg PO DAILY 08/01/16 [History] Allopurinol [Zyloprim] 300 mg PO BID 08/14/16 [History] glipiZIDE [Glucotrol] 10 mg PO BID 06/15/19 [History] Clopidogrel Bisulfate [Clopidogrel] 75 mg PO DAILY 07/27/19 [History] Lisinopril 10 mg PO DAILY 07/27/19 [History] Nitroglycerin 0.4 mg PO ASDIRECTED 07/27/19 [History] Ascorbate Calcium [Vitamin C] 500 mg PO DAILY 08/14/19 [History] Azelastine [Optivar 0.05% Ophth Soln] 1 drop EYEBOTH BID 08/14/19 [History] Furosemide [Lasix] 40 mg PO DAILY 08/14/19 [History] Isosorbide Mononitrate [Imdur] 30 mg PO BID 08/14/19 [History] Liraglutide [Victoza] 1.2 mg SUBCUT DAILY 08/14/19 [History] Magnesium Oxide [Magnesium] 400 mg PO BID 08/14/19 [History] prednisoLONE acetate [Pred Forte 1% Ophth Susp] 1 drop EYEBOTH QID 08/14/19 [ History] predniSONE [Prednisone] See Taper PO DAILY 09/27/19 [History] Past Medical History HEENT History: Reports: Allergic Rhinitis, Impaired Vision Cardiovascular History: Reports: CAD, Heart Failure, Heart Murmur, High Cholesterol, Hypertension, SOB on Exertion, Stents Respiratory History: Reports: Pneumonia, Recurrent, Other (See Below) Other Respiratory History: seasonal allergies with use of albuterol as needed. Gastrointestinal History: Reports: Other (See Below) Other Gastrointestinal History: meckles diverticulosis Musculoskeletal History: Reports: Back Pain, Chronic, Fracture, Gout, Neck Pain , Chronic, Osteoarthritis Endocrine/Metabolic History: Reports: Diabetes, Type II, Obesity/BMI 30+ Hematologic History: Reports: Blood Transfusion(s) Dermatologic History: Reports: Venous Stasis Dermatitis - Infectious Disease History Infectious Disease History: Reports: Chicken Pox - Past Surgical History HEENT Surgical History: Reports: Oral Surgery Cardiovascular Surgical History: Reports: Coronary Artery Stent GI Surgical History: Reports: Appendectomy, EGD Male Surgical History: Reports: None Musculoskeletal Surgical History: Reports: Other (See Below) Other Musculoskeletal Surgeries/Procedures:: surgical repair of right bicep. left elbow bursa removed Social & Family History - Family History Family Medical History: Noncontributory Cardiac: Reports: CAD, High Cholesterol, Hypertension, [place] - Tobacco Use Smoking Status *Q: Never Smoker - Caffeine Use Caffeine Use: Reports: Coffee Other Caffeine Use: Pepsi - Living Situation & Occupation Living situation: Reports: Occupation: Employed (lives with Liza in [place], [place]. 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 ) GI/Abdominal: Reports: No Symptoms : Reports: No Symptoms Musculoskeletal: Reports: No Symptoms Skin: Reports: No Symptoms ED EXAM, GENERAL - Physical Exam Exam: See Below Free Text/Narrative:: pt arrived stating that his pain was a 8 when he was in the waiting room. He just had a chemical stress test that was neg. Exam Limited By: No Limitations General Appearance: Alert, Anxious, Mild Distress, Other (pupils are equal and reactive. ) Ears: Normal TMs Nose: Normal Inspection Throat/Mouth: Normal Inspection Head: Atraumatic Neck: Normal Inspection Respiratory/Chest: No Respiratory Distress Cardiovascular: Regular Rate, Rhythm GI/Abdominal: Soft, Non-Tender (Male) Exam: Deferred Rectal (Males) Exam: Deferred Back Exam: Normal Inspection Extremities: Normal Inspection Neurological: Alert, Oriented, Normal Cognition Course - Vital Signs Last Recorded V/S: Last Vital Signs Temp 37.0 C 09/27/19 16:00 Pulse 69 09/27/19 16:00 Resp 10 L 09/27/19 16:00 BP 155/97 H 09/27/19 16:00 Pulse Ox 99 09/27/19 16:00 - Orders/Labs/Meds Orders: Active Orders 24 hr Category Date Time Status EKG Documentation Completion [RC] ASDIRECTED Care 09/27/19 15:35 Active EKG 12 Lead [EK] Routine Ther 09/27/19 15:35 Ordered Labs: Laboratory Tests 09/27/19 09/27/19 09/27/19 Range/Units 15:35 15:35 15:35 WBC 10.2 (4.5-11.0) K/uL RBC 4.88 (4.30-5.90) M/uL Hgb 14.4 (12.0-15.0) g/dL Hct 44.4 (40.0-54.0) % MCV 91 (80-98) fL MCH 30 (27-31) pg MCHC 32 (32-36) % Plt Count 228 (150-400) K/uL Neut % (Auto) 63 (36-66) % Lymph % (Auto) 26 (24-44) % [place] % (Auto) 8 H (2-6) % Eos % (Auto) 2 (2-4) % Baso % (Auto) 1 (0-1) % Sodium 139 L (140-148) mmol/L Potassium 3.9 (3.6-5.2) mmol/L Chloride 102 (100-108) mmol/L Carbon Dioxide 29 (21-32) mmol/L Anion Gap 11.9 (5.0-14.0) mmol/L BUN 22 H (7-18) mg/dL Creatinine 1.1 (0.8-1.3) mg/dL Est Cr Clr Drug Dosing 83.18 mL/min Estimated GFR (MDRD) > 60 (>60) Glucose 120 H (74-106) mg/dL Calcium 9.3 (8.5-10.1) mg/dL Magnesium (1.8-2.4) mg/dL Total Bilirubin 0.3 (0.2-1.0) mg/dL AST 12 L (15-37) U/L ALT 26 (12-78) U/L Alkaline Phosphatase 91 (46-116) U/L Troponin I < 0.017 (0.000-0.056) ng/mL Total Protein 7.2 (6.4-8.2) g/dL Albumin 3.3 L (3.4-5.0) g/dL Globulin 3.9 H (2.3-3.5) g/dL Albumin/Globulin Ratio 0.9 L (1.2-2.2) 09/27/19 09/27/19 Range/Units 15:39 17:00 WBC (4.5-11.0) K/uL RBC (4.30-5.90) M/uL Hgb (12.0-15.0) g/dL Hct (40.0-54.0) % MCV (80-98) fL MCH (27-31) pg MCHC (32-36) % Plt Count (150-400) K/uL Neut % (Auto) (36-66) % Lymph % (Auto) (24-44) % [place] % (Auto) (2-6) % Eos % (Auto) (2-4) % Baso % (Auto) (0-1) % Sodium (140-148) mmol/L Potassium (3.6-5.2) mmol/L Chloride (100-108) mmol/L Carbon Dioxide (21-32) mmol/L Anion Gap (5.0-14.0) mmol/L BUN (7-18) mg/dL Creatinine (0.8-1.3) mg/dL Est Cr Clr Drug Dosing mL/min Estimated GFR (MDRD) (>60) Glucose (74-106) mg/dL Calcium (8.5-10.1) mg/dL Magnesium 1.7 L (1.8-2.4) mg/dL Total Bilirubin (0.2-1.0) mg/dL AST (15-37) U/L ALT (12-78) U/L Alkaline Phosphatase (46-116) U/L Troponin I < 0.017 (0.000-0.056) ng/mL Total Protein (6.4-8.2) g/dL Albumin (3.4-5.0) g/dL Globulin (2.3-3.5) g/dL Albumin/Globulin Ratio (1.2-2.2) Meds: Medications Discontinued Medications Generic Name Dose Route Start Last Admin Trade Name Freq PRN Reason Stop Dose Admin Aspirin 324 mg 09/27/19 15:36 09/27/19 15:42 Aspirin PO 09/27/19 15:37 324 mg ONETIME ONE Administration Sodium Chloride 10 ml 09/27/19 15:43 09/27/19 15:43 Saline Flush FLUSH 09/27/19 15:44 10 ml ASDIRECTED ONE Administration Departure - Departure Disposition: Home, Self-Care 01 Clinical Impression: Exertional chest pain Instructions: Angina Pectoris, [id number] Referrals: Adrian Leslie NP [Primary Care Provider] - Forms: ED Department Discharge Additional Instructions: Continue your current medications. Use nitro as needed for chest pain. Call your it business analyst tomorrow morning to report your ongoing sx's and today's ER visit to see what they recommend. Return here if your sx's return and are not relieved by Nitroglycerin. <Richy Clarke - Last Filed: 09/27/19 19:04> Course - Radiology Interpretation Free Text/Narrative:: GB ultrasound-neg Departure - Departure Time of Disposition: 19:03 Condition: Good
--- NOTE | 2019-09-27 18:59 | CRLUS ---
INDICATION: Chest pain TECHNIQUE: Ultrasound abdomen limited. Sonographic images of the right upper quadrant were obtained using partida-scale and color Doppler images. COMPARISON: None FINDINGS: Liver: Moderately enlarged and diffusely increased in echogenicity without focal lesion. Gallbladder: No stones or sludge. Normal wall thickness. No pericholecystic fluid. Common bile duct: 7 mm. Poorly seen Pancreas: Partially obscured by bowel gas without discrete lesion. Right kidney: Normal in size. Normal echotexture and cortex. No masses, stones, or hydronephrosis. Vasculature: Proximal abdominal aorta and IVC are normal. IMPRESSION: 1. No evidence of cholelithiasis or cholecystitis. 2. Hepatomegaly with moderate fatty infiltration of liver. 3. Common duct diameter borderline at 7 millimeters with much of the common duct obscured by bowel gas. Dictated by Yann Salmeron MD @ Sep 27 2019 6:51PM Signed by Dr. Yann Salmeron @ Sep 27 2019 6:58PM
== END 2019-09-27 19:23 | disposition home or self-care (01) ==
LOC: JP.ED 15:23
DX: R07.89 Other chest pain (principal); E11.9 Type 2 diabetes mellitus without complications; I25.10 Atherosclerotic heart disease of native coronary artery without angina pectoris; E66.9 Obesity, unspecified; Z68.42 Body mass index [BMI] 45.0-49.9, adult; Z79.84 Long term (current) use of oral hypoglycemic drugs; Z79.899 Other long term (current) drug therapy; Z91.041 Radiographic dye allergy status; Z88.1 Allergy status to other antibiotic agents; Z88.7 Allergy status to serum and vaccine; Z88.8 Allergy status to other drugs, medicaments and biological substances; Z91.09 Other allergy status, other than to drugs and biological substances
CPT/HCPCS: 36415; 71045; 76705; 80053; 83735; 84484; 85025; 93005; 99285; A9270

== ENCOUNTER 2019-11-03 15:50 | Emergency (ER) | payer BC ==
[2019-11-03 16:12] VITALS: BP 117/84; PULSE 71
--- NOTE | 2019-11-03 18:37 | EDM.PDOC ---
ED HPI GENERAL MEDICAL PROBLEM - General Chief Complaint: Headache Stated Complaint: SINUS HEADACHES TEMPS FOR 3 WKS Time Seen by Provider: 11/03/19 18:29 Source of Information: Reports: Patient History Limitations: Reports: No Limitations - History of Present Illness INITIAL COMMENTS - FREE TEXT/NARRATIVE: 59-year-old with history of extensive coronary artery disease presents today with concerns of ongoing fevers, headache, joint pains for the last 4 weeks. He reports daily fevers generally to 101F, last week up to 102F. When he went to 102 last week he saw his primary doctor who started him on Augmentin for possible sinusitis. Reports occasional shaking chills. He is reporting quite a bit of sinus drainage as well. Today he noticed a rash on his chest, he is not sure the cause of this as he has taken Augmentin in the past, when he called to report this to the primary care clinic he was instructed to come to the emergency department due to headache and fever. He currently has a mild headache. It is generally bifrontal. Occasionally associated with photophobia, not currently. He has no redness or weakness in extremities. No vision changes. No recent travel. No tick bites that he is aware of, he is on the yard some. No recent medication changes. He denies cough, dyspnea, urinary symptoms, abdominal pain, or diarrhea. He does report extensive allergy history and recently got new cats. Headache Pain Score (Numeric/FACES): 6 - Related Data Allergies Allergy/AdvReac Type Severity Reaction Status Date / Time iodine Allergy Intermediate Hives Verified 11/03/19 16:22 atorvastatin [From Lipitor] Allergy Cannot Verified 11/03/19 16:22 Remember celecoxib [From Celebrex] Allergy Cannot Verified 11/03/19 16:22 Remember colchicine Allergy Cannot Verified 11/03/19 16:22 Remember Iodinated Contrast Media Allergy Cannot Verified 11/03/19 16:22 [Iodinated Contrast- Oral Remember and IV Dye] naltrexone Allergy Cannot Verified 11/03/19 16:22 Remember niacin Allergy Cannot Verified 11/03/19 16:22 Remember nifedipine [From Procardia] Allergy Hypertensio Verified 11/03/19 16:22 n prazosin HCl [From Minipress] Allergy Hypertensio Verified 11/03/19 16:22 n shellfish derived Allergy Cannot Verified 11/03/19 16:22 Remember tuberculin, purified protein Allergy Cannot Verified 11/03/19 16:22 deriva Remember wheat Allergy Cannot Verified 11/03/19 16:22 Remember doxycycline AdvReac Pain Verified 11/03/19 16:22 nebivolol HCl [From Bystolic] AdvReac Shaking Verified 11/03/19 16:22 Home Meds: Home Meds Potassium Chloride [Potassium Chloride Solution] 20 meq PO DAILY 09/07/13 [ History] Rosuvastatin Calcium [Crestor] 40 mg PO BEDTIME 09/07/13 [History] atenoloL [Tenormin] 25 mg PO QAM 09/07/13 [History] Cyanocobalamin (Vitamin B-12) [Vitamin B-12] 2,000 mcg PO BID 03/28/16 [History] Albuterol Sulfate [Proair Hfa] 2 puff IH Q4H PRN 08/01/16 [History] Aspirin [Halfprin] 81 mg PO DAILY 08/01/16 [History] allopurinoL [Zyloprim] 300 mg PO BID 08/14/16 [History] glipiZIDE [Glucotrol] 10 mg PO BID 06/15/19 [History] Clopidogrel Bisulfate [Clopidogrel] 75 mg PO DAILY 07/27/19 [History] Lisinopril 10 mg PO DAILY 07/27/19 [History] Nitroglycerin 0.4 mg PO ASDIRECTED 07/27/19 [History] Ascorbate Calcium [Vitamin C] 500 mg PO DAILY 08/14/19 [History] Azelastine [Optivar 0.05% Ophth Soln] 1 drop EYEBOTH BID 08/14/19 [History] Furosemide [Lasix] 40 mg PO DAILY 08/14/19 [History] Isosorbide Mononitrate [Imdur] 30 mg PO DAILY 08/14/19 [History] Liraglutide [Victoza] 1.2 mg SUBCUT DAILY 08/14/19 [History] Magnesium Oxide [Magnesium] 400 mg PO ASDIRECTED 08/14/19 [History] prednisoLONE acetate [Pred Forte 1% Ophth Susp] 1 drop EYEBOTH QID 08/14/19 [ History] Past Medical History HEENT History: Reports: Allergic Rhinitis, Impaired Vision Cardiovascular History: Reports: CAD, Heart Failure, Heart Murmur, High Cholesterol, Hypertension, SOB on Exertion, Stents Respiratory History: Reports: Pneumonia, Recurrent, Other (See Below) Other Respiratory History: seasonal allergies with use of albuterol as needed. Gastrointestinal History: Reports: Other (See Below) Other Gastrointestinal History: meckles diverticulosis Musculoskeletal History: Reports: Back Pain, Chronic, Fracture, Gout, Neck Pain , Chronic, Osteoarthritis Endocrine/Metabolic History: Reports: Diabetes, Type II, Obesity/BMI 30+ Hematologic History: Reports: Blood Transfusion(s) Dermatologic History: Reports: Venous Stasis Dermatitis - Infectious Disease History Infectious Disease History: Reports: Chicken Pox - Past Surgical History Head Surgeries/Procedures: Reports: None HEENT Surgical History: Reports: Oral Surgery Cardiovascular Surgical History: Reports: Coronary Artery Stent Respiratory Surgical History: Reports: None GI Surgical History: Reports: Appendectomy, EGD Male Surgical History: Reports: None Endocrine Surgical History: Reports: None Musculoskeletal Surgical History: Reports: Other (See Below) Other Musculoskeletal Surgeries/Procedures:: surgical repair of right bicep. left elbow bursa removed Dermatological Surgical History: Reports: None Social & Family History - Family History Family Medical History: Noncontributory Cardiac: Reports: CAD, High Cholesterol, Hypertension, [place] - Tobacco Use Smoking Status *Q: Never Smoker Second Hand Smoke Exposure: No - Caffeine Use Caffeine Use: Reports: Coffee Other Caffeine Use: Pepsi - Recreational Drug Use Recreational Drug Use: No - Living Situation & Occupation Living situation: Reports: Occupation: Employed (lives with Liza in [place], [place]. 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 Denies: Abdominal Pain, Diarrhea : Denies: Dysuria, Flank Pain Musculoskeletal: Reports: Joint Pain Skin: Reports: No Symptoms Neurological: Reports: No Symptoms Psychiatric: Reports: No Symptoms Hematologic/Lymphatic: Reports: No Symptoms Immunologic: Reports: No Symptoms - Physical Exam Exam: See Below Exam Limited By: No Limitations General Appearance: Alert, No Apparent Distress Ears: Normal External Exam Nose: Normal Inspection Throat/Mouth: Normal Inspection Head Exam: Atraumatic, Normocephalic Neck: Supple, Non-Tender Respiratory/Chest: No Respiratory Distress, Lungs Clear Cardiovascular: Regular Rate, Rhythm GI/Abdominal: Soft, Non-Tender Neuro Exam (Abbreviated): Alert, Oriented, Normal Cognition, Sensory/Motor Deficit. No: Disoriented, Abnormal Gait Extremities: Normal Inspection Psychiatric: Normal Affect, Normal Mood Skin Exam: Warm, Dry, Other (scaly, nonraised, nonerythematous rash scattered across the lateral chest wall and shoulders bilaterally.) Course - Vital Signs Last Recorded V/S: Last Vital Signs Temp 36.0 C 11/03/19 16:26 Pulse 71 11/03/19 16:26 Resp 16 11/03/19 16:26 BP 117/84 11/03/19 16:26 Pulse Ox 97 11/03/19 16:26 - Orders/Labs/Meds Orders: Active Orders 24 hr Category Date Time Status CULTURE BLOOD [BC] Stat Lab 11/03/19 16:30 Received LYME, TOTAL AB TEST/REFLEX Stat Lab 11/03/19 16:30 Received Labs: Laboratory Tests 11/03/19 11/03/19 Range/Units 16:30 18:39 WBC 10.6 (4.5-11.0) K/uL RBC 4.91 (4.30-5.90) M/uL Hgb 14.3 (12.0-15.0) g/dL Hct 44.7 (40.0-54.0) % MCV 91 (80-98) fL MCH 29 (27-31) pg MCHC 32 (32-36) % Plt Count 227 (150-400) K/uL Urine Color Yellow (YELLOW) Urine Appearance Clear (CLEAR) Urine pH 6.0 (5.0-8.0) Ur Specific [place] 1.025 (1.008-1.030) Urine Protein Negative (NEGATIVE) mg/dL Urine Glucose (UA) Negative (NEGATIVE) mg/dL Urine Ketones Negative (NEGATIVE) mg/dL Urine Occult Blood Negative (NEGATIVE) Urine Nitrite Negative (NEGATIVE) Urine Bilirubin Negative (NEGATIVE) Urine Urobilinogen 0.2 (0.2-1.0) EU/dL Ur Leukocyte Esterase Negative (NEGATIVE) Urine RBC 0-5 (0-5) Urine WBC 0-5 (0-5) Ur Epithelial Cells Rare Amorphous Sediment Not seen Urine Bacteria Not seen Urine Mucus Few - Re-Assessments/Exams Free Text/Narrative Re-Assessment/Exam: 59-year-old presents with concerns of headache, fevers, joint pains x 4 weeks. He is well-appearing and afebrile on exam. No obvious focal source of infection. He does have a scaly, chronic appearing, psoriatic rash on his chest. Does not appear to be a drug reaction, I'm not certain of the significance of this. he is well-known to the emergency room as a frequent utilizer. My suspicion for serious acute illness is low. That being said, given the chronicity of his ongoing fevers which reportedly have been objectively measured we'll check some basic labs, blood cultures, tick panel, and UA. I suspect he will be safe for discharge, we can call him back for positive cultures and he can follow up tick panel in clinic. I think a lot of this likely is his chronic allergies in the setting of new pets. 11/03/19 18:39 Free Text/Narrative Re-Assessment/Exam: UA unremarkable, no concerning abnormalities on CBC. Safe for discharge. We'll defer any more antibiotics to PCP, as there is no evidence for bacterial infection at this time. 11/03/19 19:07 Departure - Departure Time of Disposition: 19:07 Disposition: Home, Self-Care 01 Clinical Impression: Headache Qualifiers: Headache type: unspecified Headache chronicity pattern: unspecified pattern Intractability: not intractable Qualified Code(s): R51 - Headache - Discharge Information Instructions: Sinus Headache Referrals: Adrian Leslie NP [Primary Care Provider] - Forms: ED Department Discharge Additional Instructions: Your labs are re-assuring. Your allergies/sinuses may be driving much of your symptoms You can try an over the counter allergy medication such a claritin or benadryl ( this one will make you sleepy) to see if this is helpful Please follow up with your primary doctor Sepsis Event Note - Evaluation Sepsis Screening Result: No Definite Risk - Focused Exam Vital Signs: Vital Signs Temp Pulse Resp BP Pulse Ox 11/03/19 16:26 36.0 C 71 16 117/84 97 11/03/19 16:11 36.0 C 71 16 117/84 97 Date Exam was Performed: 11/03/19 Time Exam was Performed: 19:07 - My Orders Last 24 Hours: My Active Orders 11/03/19 16:30 CULTURE BLOOD [BC] Stat LYME, TOTAL AB TEST/REFLEX Stat - Assessment/Plan Last 24 Hours: My Active Orders 11/03/19 16:30 CULTURE BLOOD [BC] Stat LYME, TOTAL AB TEST/REFLEX Stat
[2019-11-06 11:09] LABS: LYME IGG/IGM AB <0.91 ISR (0.00-0.90)
== END 2019-11-03 19:17 | disposition home or self-care (01) ==
LOC: JP.ED 15:50
DX: R51 Headache (principal); I11.0 Hypertensive heart disease with heart failure; I50.9 Heart failure, unspecified; E11.9 Type 2 diabetes mellitus without complications; I25.10 Atherosclerotic heart disease of native coronary artery without angina pectoris; E78.00 Pure hypercholesterolemia, unspecified; M10.9 Gout, unspecified; E66.9 Obesity, unspecified; Z68.42 Body mass index [BMI] 45.0-49.9, adult; Z95.5 Presence of coronary angioplasty implant and graft; Z79.82 Long term (current) use of aspirin; Z79.02 Long term (current) use of antithrombotics/antiplatelets; Z79.84 Long term (current) use of oral hypoglycemic drugs; Z79.899 Other long term (current) drug therapy; Z88.8 Allergy status to other drugs, medicaments and biological substances; Z91.041 Radiographic dye allergy status; Z91.013 Allergy to seafood; Z91.018 Allergy to other foods
CPT/HCPCS: 36415; 81001; 85027; 86618; 87040; 99284

== ENCOUNTER 2019-12-02 15:45 | Emergency (ER) | payer BC ==
--- NOTE | 2019-12-02 16:04 | EDM.PDOC ---
<Mikala Sorenson - Last Filed: 12/02/19 16:41> ED HPI GENERAL MEDICAL PROBLEM - General Chief Complaint: Chest Pain Stated Complaint: MEDICAL VIA [facility] Time Seen by Provider: 12/02/19 16:04 Source of Information: Reports: Patient History Limitations: Reports: No Limitations - History of Present Illness INITIAL COMMENTS - FREE TEXT/NARRATIVE: at 1 fity the pt was shoveling and he developed acute chest pain. At that time he was sob. He did get sweaty. He took a nitro at home and he got immediate relief. He did have a coronary angiogram in Oct in [place] by the production control clerk. His angiogram was neg. He hs been doing better since that time until today. He definitely felt the exercise may have brought on the issue. He had a total of 5 nitros by the time he got here he was painfree. He had a normal ekg in the ambulance. Onset: Today, Sudden Duration: Hour(s): Location: Reports: Chest Associated Symptoms: Reports: Chest Pain, Diaphoresis, Shortness of Breath - Related Data Allergies Allergy/AdvReac Type Severity Reaction Status Date / Time iodine Allergy Intermediate Hives Verified 12/02/19 15:53 atorvastatin [From Lipitor] Allergy Cannot Verified 12/02/19 15:53 Remember celecoxib [From Celebrex] Allergy Cannot Verified 12/02/19 15:53 Remember colchicine Allergy Cannot Verified 12/02/19 15:53 Remember Iodinated Contrast Media Allergy Cannot Verified 12/02/19 15:53 [Iodinated Contrast- Oral Remember and IV Dye] naltrexone Allergy Cannot Verified 12/02/19 15:53 Remember niacin Allergy Cannot Verified 12/02/19 15:53 Remember nifedipine [From Procardia] Allergy Hypertensio Verified 12/02/19 15:53 n prazosin HCl [From Minipress] Allergy Hypertensio Verified 12/02/19 15:53 n shellfish derived Allergy Cannot Verified 12/02/19 15:53 Remember tuberculin, purified protein Allergy Cannot Verified 12/02/19 15:53 deriva Remember wheat Allergy Cannot Verified 12/02/19 15:53 Remember doxycycline AdvReac Pain Verified 12/02/19 15:53 nebivolol HCl [From Bystolic] AdvReac Shaking Verified 12/02/19 15:53 Home Meds: Home Meds Potassium Chloride [Potassium Chloride Solution] 20 meq PO DAILY 09/07/13 [ History] Rosuvastatin Calcium [Crestor] 40 mg PO BEDTIME 09/07/13 [History] atenoloL [Tenormin] 25 mg PO QAM 09/07/13 [History] Cyanocobalamin (Vitamin B-12) [Vitamin B-12] 2,000 mcg PO BID 03/28/16 [History] Albuterol Sulfate [Proair Hfa] 2 puff IH Q4H PRN 08/01/16 [History] Aspirin [Halfprin] 81 mg PO DAILY 08/01/16 [History] allopurinoL [Zyloprim] 300 mg PO BID 08/14/16 [History] glipiZIDE [Glucotrol] 10 mg PO BID 06/15/19 [History] Clopidogrel Bisulfate [Clopidogrel] 75 mg PO DAILY 07/27/19 [History] Lisinopril 10 mg PO DAILY 07/27/19 [History] Nitroglycerin 0.4 mg PO ASDIRECTED 07/27/19 [History] Ascorbate Calcium [Vitamin C] 500 mg PO DAILY 08/14/19 [History] Azelastine [Optivar 0.05% Oph Soln] 1 drop EYEBOTH BID 08/14/19 [History] Furosemide [Lasix] 40 mg PO DAILY 08/14/19 [History] Isosorbide Mononitrate [Imdur] 30 mg PO DAILY 08/14/19 [History] Liraglutide [Victoza] 1.2 mg SUBCUT DAILY 08/14/19 [History] Magnesium Oxide [Magnesium] 400 mg PO ASDIRECTED 08/14/19 [History] prednisoLONE acetate [Pred Forte 1% Oph Susp] 1 drop EYEBOTH QID 08/14/19 [ History] Past Medical History HEENT History: Reports: Allergic Rhinitis, Impaired Vision Cardiovascular History: Reports: CAD, Heart Failure, Heart Murmur, High Cholesterol, Hypertension, SOB on Exertion, Stents Respiratory History: Reports: Pneumonia, Recurrent, Other (See Below) Other Respiratory History: seasonal allergies with use of albuterol as needed. Gastrointestinal History: Reports: Other (See Below) Other Gastrointestinal History: meckles diverticulosis Musculoskeletal History: Reports: Back Pain, Chronic, Fracture, Gout, Neck Pain , Chronic, Osteoarthritis Endocrine/Metabolic History: Reports: Diabetes, Type II, Obesity/BMI 30+ Hematologic History: Reports: Blood Transfusion(s) Dermatologic History: Reports: Venous Stasis Dermatitis - Infectious Disease History Infectious Disease History: Reports: Chicken Pox - Past Surgical History Head Surgeries/Procedures: Reports: None HEENT Surgical History: Reports: Oral Surgery Cardiovascular Surgical History: Reports: Coronary Artery Stent, Percutaneous Transluminal Angioplasty Other Cardiovascular Surgeries/Procedures: angio in oct 2019 -good Respiratory Surgical History: Reports: None GI Surgical History: Reports: Appendectomy, EGD Male Surgical History: Reports: None Endocrine Surgical History: Reports: None Musculoskeletal Surgical History: Reports: Other (See Below) Other Musculoskeletal Surgeries/Procedures:: surgical repair of right bicep. left elbow bursa removed Dermatological Surgical History: Reports: None Social & Family History - Family History Family Medical History: Noncontributory Cardiac: Reports: CAD, High Cholesterol, Hypertension, [place] - Tobacco Use Smoking Status *Q: Never Smoker - Caffeine Use Caffeine Use: Reports: Coffee, Soda Other Caffeine Use: Pepsi - Recreational Drug Use Recreational Drug Use: No - Living Situation & Occupation Living situation: Reports: Occupation: Employed (lives with Liza in [place], [place]. 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 ) Endocrine: Reports: No Symptoms GI/Abdominal: Reports: No Symptoms ED EXAM, GENERAL - Physical Exam Exam: See Below Free Text/Narrative:: pt arrived with a history of sudden onset of left sided chest pain after shoveling. He had a total of 5 nitros and he arrived painfree. He has not been sob. He had a normal ekg after arrival. Exam Limited By: No Limitations General Appearance: Alert, No Apparent Distress, Anxious Ears: Normal TMs Nose: Normal Inspection Throat/Mouth: Normal Inspection Head: Atraumatic Neck: Normal Inspection Respiratory/Chest: No Respiratory Distress Cardiovascular: Regular Rate, Rhythm, Other ( ekg appears normal. ) GI/Abdominal: Soft, Non-Tender (Male) Exam: Deferred Rectal (Males) Exam: Deferred Back Exam: Normal Inspection Extremities: Normal Inspection, Other ( pt does have alot of venous staus changes. ) Neurological: Alert, Oriented, Normal Cognition Course - Vital Signs Last Recorded V/S: Last Vital Signs Temp 36.2 C 12/02/19 15:48 Pulse 60 12/02/19 18:52 Resp 13 12/02/19 17:46 BP 167/74 H 12/02/19 18:52 Pulse Ox 94 L 12/02/19 17:46 - Orders/Labs/Meds Orders: Active Orders 24 hr Category Date Time Status EKG Documentation Completion [RC] ASDIRECTED Care 12/02/19 15:57 Active EKG 12 Lead [EK] Routine Ther 12/02/19 15:57 Ordered Labs: Laboratory Tests 12/02/19 12/02/19 12/02/19 Range/Units 15:40 15:40 15:40 WBC 7.2 (4.5-11.0) K/uL RBC 4.52 (4.30-5.90) M/uL Hgb 13.3 (12.0-15.0) g/dL Hct 41.1 (40.0-54.0) % MCV 91 (80-98) fL MCH 29 (27-31) pg MCHC 32 (32-36) % Plt Count 206 (150-400) K/uL Neut % (Auto) 62 (36-66) % Lymph % (Auto) 27 (24-44) % Finney % (Auto) 8 H (2-6) % Eos % (Auto) 3 (2-4) % Baso % (Auto) 1 (0-1) % Sodium 139 L (140-148) mmol/L Potassium 3.8 (3.6-5.2) mmol/L Chloride 103 (100-108) mmol/L Carbon Dioxide 27 (21-32) mmol/L Anion Gap 12.8 (5.0-14.0) mmol/L BUN 16 (7-18) mg/dL Creatinine 0.9 (0.8-1.3) mg/dL Est Cr Clr Drug Dosing 102.75 mL/min Estimated GFR (MDRD) > 60 (>60) Glucose 115 H (74-106) mg/dL Calcium 8.8 (8.5-10.1) mg/dL Total Bilirubin 0.3 (0.2-1.0) mg/dL AST 13 L (15-37) U/L ALT 29 (12-78) U/L Alkaline Phosphatase 84 (46-116) U/L Troponin I < 0.017 (0.000-0.056) ng/mL Total Protein 7.2 (6.4-8.2) g/dL Albumin 3.3 L (3.4-5.0) g/dL Globulin 3.9 H (2.3-3.5) g/dL Albumin/Globulin Ratio 0.9 L (1.2-2.2) 12/02/19 Range/Units 17:56 WBC (4.5-11.0) K/uL RBC (4.30-5.90) M/uL Hgb (12.0-15.0) g/dL Hct (40.0-54.0) % MCV (80-98) fL MCH (27-31) pg MCHC (32-36) % Plt Count (150-400) K/uL Neut % (Auto) (36-66) % Lymph % (Auto) (24-44) % Finney % (Auto) (2-6) % Eos % (Auto) (2-4) % Baso % (Auto) (0-1) % Sodium (140-148) mmol/L Potassium (3.6-5.2) mmol/L Chloride (100-108) mmol/L Carbon Dioxide (21-32) mmol/L Anion Gap (5.0-14.0) mmol/L BUN (7-18) mg/dL Creatinine (0.8-1.3) mg/dL Est Cr Clr Drug Dosing mL/min Estimated GFR (MDRD) (>60) Glucose (74-106) mg/dL Calcium (8.5-10.1) mg/dL Total Bilirubin (0.2-1.0) mg/dL AST (15-37) U/L ALT (12-78) U/L Alkaline Phosphatase (46-116) U/L Troponin I < 0.017 (0.000-0.056) ng/mL Total Protein (6.4-8.2) g/dL Albumin (3.4-5.0) g/dL Globulin (2.3-3.5) g/dL Albumin/Globulin Ratio (1.2-2.2) - Re-Assessments/Exams Free Text/Narrative Re-Assessment/Exam: 12/02/19 16:52 pt has a normal trop, no acute changes on the ekg. He is completely comfortable at this time. He did have 5 baby asa at the [facility]. Departure - Departure Disposition: Admitted As Inpatient 66 Clinical Impression: Chest pain Referrals: PCP,None [Ordering Only Provider] - Forms: ED Department Discharge Sepsis Event Note - Evaluation Sepsis Screening Result: No Definite Risk - Focused Exam Vital Signs: Vital Signs Temp Pulse Resp BP Pulse Ox 12/02/19 18:52 60 167/74 H 12/02/19 18:35 85 137/68 12/02/19 17:46 48 L 13 167/83 H 94 L 12/02/19 17:12 54 L 13 125/75 97 12/02/19 16:45 56 L 12 155/74 H 96 12/02/19 16:25 59 L 16 133/75 95 12/02/19 15:48 36.2 C 60 16 126/75 97 Date Exam was Performed: 12/02/19 Time Exam was Performed: 16:41 <Delmy Miller - Last Filed: 12/02/19 19:10> Course - Re-Assessments/Exams Free Text/Narrative Re-Assessment/Exam: 12/02/19 19:09 Resumed patient care from Dr. Jones at time of shift exchange. She advised to follow-up on second troponin and elevated is negative patient needs to be admitted for cardiac rule out. If it is positive patient needs to be transferred. Second troponin came back negative. Patient will be admitted to [facility]. Patient agrees with the plan. Stable for admission. Departure - Departure Time of Disposition: 19:09 Sepsis Event Note - Focused Exam Date Exam was Performed: 12/02/19 Time Exam was Performed: 19:08 - Assessment/Plan Plan: Admit to [facility]
[2019-12-02 18:53] VITALS: PULSE 60
[2019-12-02 19:18] VITALS: BP 152/80
--- NOTE | 2019-12-02 19:32 | EDM.PDOC ---
ED HPI GENERAL MEDICAL PROBLEM - General Chief Complaint: Chest Pain Stated Complaint: MEDICAL [facility] Time Seen by Provider: 12/02/19 16:04 Source of Information: Reports: Patient History Limitations: Reports: No Limitations - History of Present Illness INITIAL COMMENTS - FREE TEXT/NARRATIVE: pt arrived with a history of sudden onset of left sided chest pain after shoveling. He had a total of 5 nitros and he arrived painfree. He has not been sob. He had a normal ekg after arrival. Onset: Today, Sudden Duration: Hour(s): Location: Reports: Chest Associated Symptoms: Reports: Chest Pain, Diaphoresis, Shortness of Breath - Related Data Allergies Allergy/AdvReac Type Severity Reaction Status Date / Time iodine Allergy Intermediate Hives Verified 12/02/19 15:53 atorvastatin [From Lipitor] Allergy Cannot Verified 12/02/19 15:53 Remember celecoxib [From Celebrex] Allergy Cannot Verified 12/02/19 15:53 Remember colchicine Allergy Cannot Verified 12/02/19 15:53 Remember Iodinated Contrast Media Allergy Cannot Verified 12/02/19 15:53 [Iodinated Contrast- Oral Remember and IV Dye] naltrexone Allergy Cannot Verified 12/02/19 15:53 Remember niacin Allergy Cannot Verified 12/02/19 15:53 Remember nifedipine [From Procardia] Allergy Hypertensio Verified 12/02/19 15:53 n prazosin HCl [From Minipress] Allergy Hypertensio Verified 12/02/19 15:53 n shellfish derived Allergy Cannot Verified 12/02/19 15:53 Remember tuberculin, purified protein Allergy Cannot Verified 12/02/19 15:53 deriva Remember wheat Allergy Cannot Verified 12/02/19 15:53 Remember doxycycline AdvReac Pain Verified 12/02/19 15:53 nebivolol HCl [From Bystolic] AdvReac Shaking Verified 12/02/19 15:53 Home Meds: Home Meds Potassium Chloride [Potassium Chloride Solution] 20 meq PO DAILY 09/07/13 [ History] Rosuvastatin Calcium [Crestor] 40 mg PO BEDTIME 09/07/13 [History] atenoloL [Tenormin] 25 mg PO QAM 09/07/13 [History] Cyanocobalamin (Vitamin B-12) [Vitamin B-12] 2,000 mcg PO BID 03/28/16 [History] Albuterol Sulfate [Proair Hfa] 2 puff IH Q4H PRN 08/01/16 [History] Aspirin [Halfprin] 81 mg PO DAILY 08/01/16 [History] allopurinoL [Zyloprim] 300 mg PO BID 08/14/16 [History] glipiZIDE [Glucotrol] 10 mg PO BID 06/15/19 [History] Clopidogrel Bisulfate [Clopidogrel] 75 mg PO DAILY 07/27/19 [History] Lisinopril 10 mg PO DAILY 07/27/19 [History] Nitroglycerin 0.4 mg PO ASDIRECTED 07/27/19 [History] Ascorbate Calcium [Vitamin C] 500 mg PO DAILY 08/14/19 [History] Azelastine [Optivar 0.05% Ophth Soln] 1 drop EYEBOTH BID 08/14/19 [History] Furosemide [Lasix] 40 mg PO DAILY 08/14/19 [History] Isosorbide Mononitrate [Imdur] 30 mg PO DAILY 08/14/19 [History] Liraglutide [Victoza] 1.2 mg SUBCUT DAILY 08/14/19 [History] Magnesium Oxide [Magnesium] 400 mg PO ASDIRECTED 08/14/19 [History] prednisoLONE acetate [Pred Forte 1% Ophth Susp] 1 drop EYEBOTH QID 08/14/19 [ History] Past Medical History HEENT History: Reports: Allergic Rhinitis, Impaired Vision Cardiovascular History: Reports: CAD, Heart Failure, Heart Murmur, High Cholesterol, Hypertension, SOB on Exertion, Stents Respiratory History: Reports: Pneumonia, Recurrent, Other (See Below) Other Respiratory History: seasonal allergies with use of albuterol as needed. Gastrointestinal History: Reports: Other (See Below) Other Gastrointestinal History: meckles diverticulosis Musculoskeletal History: Reports: Back Pain, Chronic, Fracture, Gout, Neck Pain , Chronic, Osteoarthritis Endocrine/Metabolic History: Reports: Diabetes, Type II, Obesity/BMI 30+ Hematologic History: Reports: Blood Transfusion(s) Dermatologic History: Reports: Venous Stasis Dermatitis - Infectious Disease History Infectious Disease History: Reports: Chicken Pox - Past Surgical History Head Surgeries/Procedures: Reports: None HEENT Surgical History: Reports: Oral Surgery Cardiovascular Surgical History: Reports: Coronary Artery Stent, Percutaneous Transluminal Angioplasty Other Cardiovascular Surgeries/Procedures: angio in oct 2019 -good Respiratory Surgical History: Reports: None GI Surgical History: Reports: Appendectomy, EGD Male Surgical History: Reports: None Endocrine Surgical History: Reports: None Musculoskeletal Surgical History: Reports: Other (See Below) Other Musculoskeletal Surgeries/Procedures:: surgical repair of right bicep. left elbow bursa removed Dermatological Surgical History: Reports: None Social & Family History - Family History Family Medical History: Noncontributory Cardiac: Reports: CAD, High Cholesterol, Hypertension, [place] - Tobacco Use Smoking Status *Q: Never Smoker - Caffeine Use Caffeine Use: Reports: Coffee, Soda Other Caffeine Use: Pepsi - Recreational Drug Use Recreational Drug Use: No - Living Situation & Occupation Living situation: Reports: Occupation: Employed (lives with Liza in [place], [place]. 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[place], [place].) ED ROS GENERAL - Review of Systems Review Of Systems: See Below HEENT: Reports: No Symptoms Respiratory: Reports: No Symptoms Cardiovascular: Reports: No Symptoms Endocrine: Reports: No Symptoms GI/Abdominal: Reports: No Symptoms : Reports: No Symptoms Musculoskeletal: Reports: No Symptoms Skin: Reports: No Symptoms Neurological: Reports: No Symptoms Psychiatric: Reports: No Symptoms Hematologic/Lymphatic: Reports: No Symptoms Immunologic: Reports: No Symptoms ED EXAM, GENERAL - Physical Exam Exam: See Below Free Text/Narrative:: pt arrived with a history of sudden onset of left sided chest pain after shoveling. He had a total of 5 nitros and he arrived painfree. He has not been sob. He had a normal ekg after arrival. Exam Limited By: No Limitations General Appearance: Alert, No Apparent Distress, Anxious Ears: Normal TMs Nose: Normal Inspection Throat/Mouth: Normal Inspection Head: Atraumatic Neck: Normal Inspection Respiratory/Chest: No Respiratory Distress Cardiovascular: Regular Rate, Rhythm, Other ( ekg appears normal. ) GI/Abdominal: Soft, Non-Tender Back Exam: Normal Inspection Extremities: Normal Inspection, Other ( pt does have alot of venous staus changes. ) Neurological: Alert, Oriented, Normal Cognition Psychiatric: Normal Affect, Normal Mood Skin Exam: Warm, Dry, Intact, Normal Color, No Rash Course - Vital Signs Last Recorded V/S: Last Vital Signs Temp 36.2 C 12/02/19 15:48 Pulse 60 12/02/19 19:18 Resp 15 12/02/19 19:18 BP 152/80 H 12/02/19 19:18 Pulse Ox 98 12/02/19 19:18 - Orders/Labs/Meds Orders: Active Orders 24 hr Category Date Time Status EKG Documentation Completion [RC] ASDIRECTED Care 12/02/19 15:57 Active EKG 12 Lead [EK] Routine Ther 12/02/19 15:57 Ordered Labs: Laboratory Tests 12/02/19 12/02/19 12/02/19 Range/Units 15:40 15:40 15:40 WBC 7.2 (4.5-11.0) K/uL RBC 4.52 (4.30-5.90) M/uL Hgb 13.3 (12.0-15.0) g/dL Hct 41.1 (40.0-54.0) % MCV 91 (80-98) fL MCH 29 (27-31) pg MCHC 32 (32-36) % Plt Count 206 (150-400) K/uL Neut % (Auto) 62 (36-66) % Lymph % (Auto) 27 (24-44) % [place] % (Auto) 8 H (2-6) % Eos % (Auto) 3 (2-4) % Baso % (Auto) 1 (0-1) % Sodium 139 L (140-148) mmol/L Potassium 3.8 (3.6-5.2) mmol/L Chloride 103 (100-108) mmol/L Carbon Dioxide 27 (21-32) mmol/L Anion Gap 12.8 (5.0-14.0) mmol/L BUN 16 (7-18) mg/dL Creatinine 0.9 (0.8-1.3) mg/dL Est Cr Clr Drug Dosing 102.75 mL/min Estimated GFR (MDRD) > 60 (>60) Glucose 115 H (74-106) mg/dL Calcium 8.8 (8.5-10.1) mg/dL Total Bilirubin 0.3 (0.2-1.0) mg/dL AST 13 L (15-37) U/L ALT 29 (12-78) U/L Alkaline Phosphatase 84 (46-116) U/L Troponin I < 0.017 (0.000-0.056) ng/mL Total Protein 7.2 (6.4-8.2) g/dL Albumin 3.3 L (3.4-5.0) g/dL Globulin 3.9 H (2.3-3.5) g/dL Albumin/Globulin Ratio 0.9 L (1.2-2.2) 12/02/19 Range/Units 17:56 WBC (4.5-11.0) K/uL RBC (4.30-5.90) M/uL Hgb (12.0-15.0) g/dL Hct (40.0-54.0) % MCV (80-98) fL MCH (27-31) pg MCHC (32-36) % Plt Count (150-400) K/uL Neut % (Auto) (36-66) % Lymph % (Auto) (24-44) % [place] % (Auto) (2-6) % Eos % (Auto) (2-4) % Baso % (Auto) (0-1) % Sodium (140-148) mmol/L Potassium (3.6-5.2) mmol/L Chloride (100-108) mmol/L Carbon Dioxide (21-32) mmol/L Anion Gap (5.0-14.0) mmol/L BUN (7-18) mg/dL Creatinine (0.8-1.3) mg/dL Est Cr Clr Drug Dosing mL/min Estimated GFR (MDRD) (>60) Glucose (74-106) mg/dL Calcium (8.5-10.1) mg/dL Total Bilirubin (0.2-1.0) mg/dL AST (15-37) U/L ALT (12-78) U/L Alkaline Phosphatase (46-116) U/L Troponin I < 0.017 (0.000-0.056) ng/mL Total Protein (6.4-8.2) g/dL Albumin (3.4-5.0) g/dL Globulin (2.3-3.5) g/dL Albumin/Globulin Ratio (1.2-2.2) - Re-Assessments/Exams Free Text/Narrative Re-Assessment/Exam: 12/02/19 re-assess for admission, Mr. Sánchez declines admission. reports he has been chest pain free since the episode this afternoon while shoveling snow. has not had any further chest pain, arm pain or sweating since arrival to ER. He reports had angiogram last month Oct in [place], [place]. which was negative. reports he usually comes to the ER has a blood test then gets to go home. does not feel like its his heart. O: neat and clean, in hospital gown, no distress noted, is at his bedside. vital signs p 60-15 B/P 152/80 oxygen sat 98% on room air. tele sinus suzanne without ectopy labs - troponin negative x 2 separate lab draws chest; lungs clear heart s1s2 no murmur abdomen soft non tender extremities - no edema skin; warm and dry A: atypical chest pain P: will discharge to home. follow up with Primary Care as needed Return to ER if has any changes or any concerns. and Mrs. Sánchez agree with plan of care. Departure - Departure Time of Disposition: 19:29 Disposition: Home, Self-Care 01 Condition: Good Clinical Impression: Chest pain, Chest pain, atypical Instructions: Nonspecific Chest Pain, [id number] Referrals: PCP,None [Ordering Only Provider] - Forms: ED Department Discharge Care Plan Goals: Chest pain -atypical -blood test Troponin negative x 2 -EKG normal sinus with changes -continue home medications Return to ER if has increased pain or any concerns. Sepsis Event Note - Evaluation Sepsis Screening Result: No Definite Risk - Focused Exam Vital Signs: Vital Signs Temp Pulse Resp BP Pulse Ox 12/02/19 19:18 60 15 152/80 H 98 12/02/19 18:52 60 167/74 H 12/02/19 18:35 85 137/68 12/02/19 17:46 48 L 13 167/83 H 94 L 12/02/19 17:12 54 L 13 125/75 97 12/02/19 16:45 56 L 12 155/74 H 96 12/02/19 16:25 59 L 16 133/75 95 12/02/19 15:48 36.2 C 60 16 126/75 97 Date Exam was Performed: 12/02/19 Time Exam was Performed: 21:50 - Problem List & Annotations (1) Chest pain, atypical SNOMED Code(s): 022872087 Code(s): R07.89 - OTHER CHEST PAIN Status: Acute Priority: Low - Problem List Review Problem List Initiated/Reviewed/Updated: Yes - Assessment/Plan Plan: Chest pain -atypical -blood test Troponin negative x 2 -EKG normal sinus with changes -continue home medications Return to ER if has increased pain or any concerns.
== END 2019-12-02 19:35 | disposition home or self-care (01) ==
LOC: JP.ED 15:45
DX: R07.89 Other chest pain (principal); I11.0 Hypertensive heart disease with heart failure; I50.9 Heart failure, unspecified; I25.10 Atherosclerotic heart disease of native coronary artery without angina pectoris; E78.00 Pure hypercholesterolemia, unspecified; M10.9 Gout, unspecified; E11.9 Type 2 diabetes mellitus without complications; E66.9 Obesity, unspecified; Z68.42 Body mass index [BMI] 45.0-49.9, adult; Z88.8 Allergy status to other drugs, medicaments and biological substances; Z91.041 Radiographic dye allergy status; Z91.013 Allergy to seafood; Z91.018 Allergy to other foods; Z79.899 Other long term (current) drug therapy; Z79.82 Long term (current) use of aspirin; Z79.02 Long term (current) use of antithrombotics/antiplatelets; Z79.84 Long term (current) use of oral hypoglycemic drugs
CPT/HCPCS: 36415; 80053; 84484; 85025; 93005; 99285-25

== ENCOUNTER 2020-05-08 09:38 | Emergency (ER) | payer BC ==
[2020-05-08 10:03] VITALS: BP 153/99; PULSE 76
--- NOTE | 2020-05-08 10:19 | EDM.PDOC ---
ED HPI GENERAL MEDICAL PROBLEM - General Chief Complaint: Upper Extremity Injury/Pain Stated Complaint: SWOLLEN L INDEX FINGER Time Seen by Provider: 05/08/20 10:10 Source of Information: Reports: Patient History Limitations: Reports: No Limitations - History of Present Illness INITIAL COMMENTS - FREE TEXT/NARRATIVE: Patient presents for evaluation of redness, swelling, pain to the left index finger after he was accidentally poked by the dorsal fin of a walleye 3 days ago. He irrigated the wound at the time but since then swelling is gradually increase as well as a reddish color and pain. There is some mild edema and slight discoloration on to the dorsum of the hand on that side. Because things were getting worse, he presented for further evaluation. He has been soaking it in warm Epsom salt solution and using Tylenol for pain. Onset: Gradual Duration: Day(s): (3) Location: Reports: Upper Extremity, Left Quality: Reports: Ache, Burning Severity: Mild Improves with: Reports: None Worsens with: Reports: Movement Context: Reports: Trauma Left Hand Pain Score (Numeric/FACES): 6 - Related Data Allergies Allergy/AdvReac Type Severity Reaction Status Date / Time iodine Allergy Intermediate Hives Verified 05/08/20 10:03 atorvastatin [From Lipitor] Allergy Cannot Verified 05/08/20 10:03 Remember celecoxib [From Celebrex] Allergy Cannot Verified 05/08/20 10:03 Remember colchicine Allergy Cannot Verified 05/08/20 10:03 Remember Iodinated Contrast Media Allergy Cannot Verified 05/08/20 10:03 [Iodinated Contrast- Oral Remember and IV Dye] naltrexone Allergy Cannot Verified 05/08/20 10:03 Remember niacin Allergy Cannot Verified 05/08/20 10:03 Remember nifedipine [From Procardia] Allergy Hypertensio Verified 05/08/20 10:03 n prazosin HCl [From Minipress] Allergy Hypertensio Verified 05/08/20 10:03 n shellfish derived Allergy Cannot Verified 05/08/20 10:03 Remember tuberculin, purified protein Allergy Cannot Verified 05/08/20 10:03 deriva Remember wheat Allergy Cannot Verified 05/08/20 10:03 Remember doxycycline AdvReac Pain Verified 05/08/20 10:03 nebivolol HCl [From Bystolic] AdvReac Shaking Verified 05/08/20 10:03 Home Meds: Home Meds Potassium Chloride [Potassium Chloride Solution] 20 meq PO DAILY 09/07/13 [History] Rosuvastatin Calcium [Crestor] 40 mg PO BEDTIME 09/07/13 [History] atenoloL [Tenormin] 25 mg PO QAM 09/07/13 [History] Cyanocobalamin (Vitamin B-12) [Vitamin B-12] 2,000 mcg PO BID 03/28/16 [History] Albuterol Sulfate [Proair Hfa] 2 puff IH Q4H PRN 08/01/16 [History] Aspirin [Halfprin] 81 mg PO DAILY 08/01/16 [History] allopurinoL [Zyloprim] 300 mg PO BID 08/14/16 [History] glipiZIDE [Glucotrol] 10 mg PO BID 06/15/19 [History] Clopidogrel Bisulfate [Clopidogrel] 75 mg PO DAILY 07/27/19 [History] Lisinopril 10 mg PO DAILY 07/27/19 [History] Nitroglycerin 0.4 mg PO ASDIRECTED 07/27/19 [History] Ascorbate Calcium [Vitamin C] 500 mg PO DAILY 08/14/19 [History] Azelastine [Optivar 0.05% Ophth Soln] 1 drop EYEBOTH BID 08/14/19 [History] Furosemide [Lasix] 40 mg PO DAILY 08/14/19 [History] Isosorbide Mononitrate [Imdur] 30 mg PO DAILY 08/14/19 [History] Liraglutide [Victoza] 1.2 mg SUBCUT DAILY 08/14/19 [History] Magnesium Oxide [Magnesium] 400 mg PO ASDIRECTED 08/14/19 [History] prednisoLONE acetate [Pred Forte 1% Ophth Susp] 1 drop EYEBOTH QID 08/14/19 [History] Indomethacin 50 mg PO TID PRN 05/08/20 [History] Past Medical History HEENT History: Reports: Allergic Rhinitis, Impaired Vision Cardiovascular History: Reports: CAD, Heart Failure, Heart Murmur, High Cholesterol, Hypertension, SOB on Exertion, Stents Respiratory History: Reports: Pneumonia, Recurrent, Other (See Below) Other Respiratory History: seasonal allergies with use of albuterol as needed. Gastrointestinal History: Reports: Other (See Below) Other Gastrointestinal History: meckles diverticulosis Musculoskeletal History: Reports: Back Pain, Chronic, Fracture, Gout, Neck Pain, Chronic, Osteoarthritis Endocrine/Metabolic History: Reports: Diabetes, Type II, Obesity/BMI 30+ Hematologic History: Reports: Blood Transfusion(s) Dermatologic History: Reports: Venous Stasis Dermatitis - Infectious Disease History Infectious Disease History: Reports: Chicken Pox - Past Surgical History Head Surgeries/Procedures: Reports: None HEENT Surgical History: Reports: Oral Surgery Cardiovascular Surgical History: Reports: Coronary Artery Stent, Percutaneous Transluminal Angioplasty Other Cardiovascular Surgeries/Procedures: angio in oct 2019 -good Respiratory Surgical History: Reports: None GI Surgical History: Reports: Appendectomy, EGD Male Surgical History: Reports: None Endocrine Surgical History: Reports: None Musculoskeletal Surgical History: Reports: Other (See Below) Other Musculoskeletal Surgeries/Procedures:: surgical repair of right bicep. left elbow bursa removed Dermatological Surgical History: Reports: None Social & Family History - Family History Family Medical History: Noncontributory Cardiac: Reports: CAD, High Cholesterol, Hypertension, [place] - Tobacco Use Smoking Status *Q: Never Smoker - Caffeine Use Caffeine Use: Reports: Coffee Other Caffeine Use: Pepsi - Recreational Drug Use Recreational Drug Use: No - Living Situation & Occupation Living situation: Reports: Occupation: Employed (lives with Liza in [place], [place]. 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 ED EXAM, GENERAL - Physical Exam Exam: See Below Exam Limited By: No Limitations General Appearance: Alert Extremities: Increased Warmth, Redness (There is swelling and moderately red coloration to the proximal segment of the left second digit. He is unable to fully flex the finger because of edema. There is a small amount of redness extending approximately from the left second digit on the dorsum of the hand. No lymphangitis.) Skin Exam: No: Lymphangitis Course - Vital Signs Last Recorded V/S: Last Vital Signs Temp 36.8 C 05/08/20 10:01 Pulse 76 05/08/20 10:01 Resp 18 05/08/20 10:01 BP 153/99 H 05/08/20 10:01 Pulse Ox 95 05/08/20 10:01 - Re-Assessments/Exams Free Text/Narrative Re-Assessment/Exam: 05/08/20 13:24 His injury is likely a combination of inflammation and infection given that it occurred by a puncture from an aquatic creature. Prescriptions sent for Augmentin 875 mg, 20 tablets; use as directed. He needs to rest and elevate the hand as much as possible over the next several days. No repetitive motions. I recommend ibuprofen 800 mg 3 times a day or naproxen 440 mg twice a day. If no improvement in 24-48 hrs., return here. If he feels worse in anyway he should return to this department. Departure - Departure Time of Disposition: 10:24 Disposition: Home, Self-Care 01 Condition: Good Clinical Impression: Cellulitis and abscess of finger, unspecified - Discharge Information *PRESCRIPTION DRUG MONITORING PROGRAM REVIEWED*: Not Applicable *COPY OF PRESCRIPTION DRUG MONITORING REPORT IN PATIENT HE: Not Applicable Instructions: Cellulitis, Adult Referrals: PCP,None [Primary Care Provider] - Forms: ED Department Discharge Additional Instructions: Elevate the hand at all times as discussed. You won't need to do the alcohol cloth wraps anymore. If people ask you why you have your arm over your head, that's the right amount of elevation! Use Aleve, 2 tablets twice a day. Continue your loratadine. Get some famotidine, which is Pepcid, and take 20 mg twice a day for the next 3 days to help the swelling. You are given a prescription for Augmentin 875 mg to be taken one tablet twice a day. Rest the hand, you should not do anything that involves manipulation of the hand or fingers. Contact your provider or return to this department. If feeling worse in anyway, return at any time. Sepsis Event Note (ED) - Evaluation Sepsis Screening Result: No Definite Risk - Focused Exam Vital Signs: Vital Signs Temp Pulse Resp BP Pulse Ox 05/08/20 10:01 36.8 C 76 18 153/99 H 95
== END 2020-05-08 10:44 | disposition home or self-care (01) ==
LOC: JP.ED 09:38
DX: L03.012 Cellulitis of left finger (principal); L02.512 Cutaneous abscess of left hand; I11.0 Hypertensive heart disease with heart failure; I50.9 Heart failure, unspecified; I25.10 Atherosclerotic heart disease of native coronary artery without angina pectoris; E78.00 Pure hypercholesterolemia, unspecified; M10.9 Gout, unspecified; E11.9 Type 2 diabetes mellitus without complications; E66.9 Obesity, unspecified; Z68.41 Body mass index [BMI] 40.0-44.9, adult; Z91.09 Other allergy status, other than to drugs and biological substances; Z88.8 Allergy status to other drugs, medicaments and biological substances; Z91.041 Radiographic dye allergy status; Z91.013 Allergy to seafood; Z91.018 Allergy to other foods; Z79.82 Long term (current) use of aspirin; Z79.84 Long term (current) use of oral hypoglycemic drugs; Z79.02 Long term (current) use of antithrombotics/antiplatelets; Z79.899 Other long term (current) drug therapy; Z95.5 Presence of coronary angioplasty implant and graft
CPT/HCPCS: 99283

== ENCOUNTER 2020-05-21 16:53 | Emergency (ER) | payer BC, OTHER ==
[2020-05-21 17:20] VITALS: BP 136/83; PULSE 79
--- NOTE | 2020-05-21 18:39 | EDM.PDOC ---
ED HPI GENERAL MEDICAL PROBLEM - General Chief Complaint: Fever Stated Complaint: TEMP,HEADACHE Time Seen by Provider: 05/21/20 18:22 Source of Information: Reports: Patient History Limitations: Reports: No Limitations - History of Present Illness INITIAL COMMENTS - FREE TEXT/NARRATIVE: 60-year-old male with a history of congestive heart failure, coronary artery disease, diabetes mellitus type 2, hypertension presents to the emergency department with a fever and chills for the past 10 days. His temp was 102 degrees yesterday. Denies chills or diaphoresis. He has sinus congestion and was on antibiotics for skin infection for 10 days beginning 05/08. He was taking Augmentin without relief and sinus symptoms. The patient states he has had no exposure to COVID-19. He denies a cough or shortness of breath. He reports a headache. Denies loss of smell or taste. He is not on immunosuppressant medications. He denies any GI or symptoms. He denies rash. - Related Data Allergies Allergy/AdvReac Type Severity Reaction Status Date / Time iodine Allergy Intermediate Hives Verified 05/21/20 17:26 atorvastatin [From Lipitor] Allergy Cannot Verified 05/21/20 17:26 Remember celecoxib [From Celebrex] Allergy Cannot Verified 05/21/20 17:26 Remember colchicine Allergy Cannot Verified 05/21/20 17:26 Remember Iodinated Contrast Media Allergy Cannot Verified 05/21/20 17:26 [Iodinated Contrast- Oral Remember and IV Dye] naltrexone Allergy Cannot Verified 05/21/20 17:26 Remember niacin Allergy Cannot Verified 05/21/20 17:26 Remember nifedipine [From Procardia] Allergy Hypertensio Verified 05/21/20 17:26 n prazosin HCl [From Minipress] Allergy Hypertensio Verified 05/21/20 17:26 n shellfish derived Allergy Cannot Verified 05/21/20 17:26 Remember tuberculin, purified protein Allergy Cannot Verified 05/21/20 17:26 deriva Remember wheat Allergy Cannot Verified 05/21/20 17:26 Remember doxycycline AdvReac Pain Verified 05/21/20 17:26 nebivolol HCl [From Bystolic] AdvReac Shaking Verified 05/21/20 17:26 Home Meds: Home Meds Potassium Chloride [Potassium Chloride Solution] 20 meq PO DAILY 09/07/13 [History] Rosuvastatin Calcium [Crestor] 40 mg PO BEDTIME 09/07/13 [History] atenoloL [Tenormin] 25 mg PO BID 09/07/13 [History] Cyanocobalamin (Vitamin B-12) [Vitamin B-12] 2,000 mcg PO BID 03/28/16 [History] Albuterol Sulfate [Proair Hfa] 2 puff IH Q4H PRN 08/01/16 [History] Aspirin [Halfprin] 81 mg PO DAILY 08/01/16 [History] allopurinoL [Zyloprim] 300 mg PO BID 08/14/16 [History] glipiZIDE [Glucotrol] 10 mg PO DAILY 06/15/19 [History] Clopidogrel Bisulfate [Clopidogrel] 75 mg PO DAILY 07/27/19 [History] Lisinopril 10 mg PO ACLUNCH 07/27/19 [History] Nitroglycerin 0.4 mg PO ASDIRECTED 07/27/19 [History] Ascorbate Calcium [Vitamin C] 500 mg PO DAILY 08/14/19 [History] Furosemide [Lasix] 20 mg PO DAILY 08/14/19 [History] Isosorbide Mononitrate [Imdur] 30 mg PO BEDTIME 08/14/19 [History] Liraglutide [Victoza] 1.8 mg SUBCUT DAILY 08/14/19 [History] Magnesium Oxide [Magnesium] 400 mg PO BID 08/14/19 [History] prednisoLONE acetate [Pred Forte 1% Ophth Susp] 1 drop EYEBOTH QID 08/14/19 [History] Indomethacin 50 mg PO TID PRN 05/08/20 [History] Furosemide 40 mg PO BEDTIME 05/21/20 [History] Turmeric Root Extract [Turmeric] 2 tab PO DAILY 05/21/20 [History] metFORMIN [Glucophage] 1,000 mg PO BID 05/21/20 [History] Past Medical History HEENT History: Reports: Allergic Rhinitis, Impaired Vision Cardiovascular History: Reports: CAD, Heart Failure, Heart Murmur, High Cholesterol, Hypertension, SOB on Exertion, Stents Respiratory History: Reports: Pneumonia, Recurrent, Other (See Below) Other Respiratory History: seasonal allergies with use of albuterol as needed. Gastrointestinal History: Reports: Other (See Below) Other Gastrointestinal History: meckles diverticuloma Musculoskeletal History: Reports: Back Pain, Chronic, Fracture, Gout, Neck Pain, Chronic, Osteoarthritis Endocrine/Metabolic History: Reports: Diabetes, Type II, Obesity/BMI 30+ Hematologic History: Reports: Blood Transfusion(s) Dermatologic History: Reports: Venous Stasis Dermatitis - Infectious Disease History Infectious Disease History: Reports: Chicken Pox - Past Surgical History Head Surgeries/Procedures: Reports: None HEENT Surgical History: Reports: Oral Surgery Cardiovascular Surgical History: Reports: Coronary Artery Stent, Percutaneous Transluminal Angioplasty Other Cardiovascular Surgeries/Procedures: angio in oct 2019 -good Respiratory Surgical History: Reports: None GI Surgical History: Reports: Appendectomy, EGD Male Surgical History: Reports: None Endocrine Surgical History: Reports: None Musculoskeletal Surgical History: Reports: Other (See Below) Other Musculoskeletal Surgeries/Procedures:: surgical repair of right bicep. left elbow bursa removed Dermatological Surgical History: Reports: None Social & Family History - Family History Family Medical History: Noncontributory Cardiac: Reports: CAD, High Cholesterol, Hypertension, [place] - Tobacco Use Smoking Status *Q: Never Smoker Second Hand Smoke Exposure: No - Caffeine Use Caffeine Use: Reports: Coffee, Soda Other Caffeine Use: Pepsi - Recreational Drug Use Recreational Drug Use: No - Living Situation & Occupation Living situation: Reports: Occupation: Employed (lives with Liza in [place], [place]. 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 Denies: Chills HEENT: Reports: Sinus Problem Respiratory: Reports: No Symptoms Cardiovascular: Reports: No Symptoms. Denies: Dyspnea on Exertion GI/Abdominal: Denies: Nausea, Vomiting Skin: Reports: Other (No rash.) ED EXAM, GENERAL - Physical Exam Exam: See Below Exam Limited By: No Limitations General Appearance: Alert, WD/WN, No Apparent Distress Ears: Normal External Exam, Normal Canal, Normal TMs Nose: Normal Inspection Throat/Mouth: Normal Inspection, Normal Lips, Normal Teeth Neck: Normal Inspection, Supple, Non-Tender Respiratory/Chest: No Respiratory Distress, Lungs Clear Cardiovascular: Normal Peripheral Pulses, Regular Rate, Rhythm Course - Vital Signs Text/Narrative:: This patient with a history of diabetes mellitus and congestive heart failure presents to the emergency department with 10-day history of fever. Today it was 103 F. He denies chills or diaphoresis. He reported sinus congestion over the past couple days but was on Augmentin for 10 days ending 2 days ago without any resolution of his sinus symptoms. The patient does not have a rash. He has not been exposed to COVID19. He denies a cough or shortness of breath. He has no GI symptoms. He [place] in a endemic area for tickborne illnesses so Lyme's titer, Babesia and ehrlichiosis screens were obtained. COVID-19 PCR was obtained. The patient will follow-up with his primary care provider in a couple days. He will return here if he has any increased symptoms or problems. He probably has a viral illness. Last Recorded V/S: Last Vital Signs Temp 35.9 C L 05/21/20 17:25 Pulse 79 05/21/20 17:25 Resp 16 05/21/20 17:25 BP 136/83 05/21/20 17:25 Pulse Ox 96 05/21/20 17:25 - Orders/Labs/Meds Orders: Active Orders 24 hr Category Date Time Status BABESIA MICROTI ANTIBODY PANEL Stat Lab 05/21/20 19:28 Ordered CORONAVIRUS COVID-19, [facility] Urgent Lab 05/21/20 18:21 Ordered E. CHAFFEENSIS-HME (MONOCYTIC) Stat Lab 05/21/20 19:29 Ordered LYME, TOTAL AB TEST/REFLEX Stat Lab 05/21/20 19:28 Ordered Labs: Laboratory Tests 05/21/20 05/21/20 Range/Units 18:20 18:20 WBC 10.5 (4.5-11.0) K/uL RBC 4.89 (4.30-5.90) M/uL Hgb 14.4 (12.0-15.0) g/dL Hct 44.5 (40.0-54.0) % MCV 91 (80-98) fL MCH 29 (27-31) pg MCHC 32 (32-36) % Plt Count 203 (150-400) K/uL Neut % (Auto) 63 (36-66) % Lymph % (Auto) 25 (24-44) % [place] % (Auto) 8 H (2-6) % Eos % (Auto) 4 (2-4) % Baso % (Auto) 0 (0-1) % C-Reactive Protein 0.16 (0.0-0.3) mg/dL Departure - Departure Time of Disposition: 19:36 Disposition: Home, Self-Care 01 Condition: Good Clinical Impression: Viral illness - Discharge Information Referrals: Adrian Leslie NP [Primary Care Provider] - Forms: ED Department Discharge Additional Instructions: Take Tylenol or ibuprofen as needed for fever. Follow-up with your primary care provider in 2 days. Return to the emergency department for have increased symptoms or problems. Sepsis Event Note (ED) - Evaluation Sepsis Screening Result: No Definite Risk - Focused Exam Vital Signs: Vital Signs Temp Pulse Resp BP Pulse Ox 05/21/20 17:25 35.9 C L 79 16 136/83 96 05/21/20 17:09 35.9 C L 79 16 136/83 96 - My Orders Last 24 Hours: My Active Orders 05/21/20 18:21 CORONAVIRUS COVID-19, [facility] Urgent 05/21/20 19:28 BABESIA MICROTI ANTIBODY PANEL Stat LYME, TOTAL AB TEST/REFLEX Stat 05/21/20 19:29 E. CHAFFEENSIS-HME (MONOCYTIC) Stat - Assessment/Plan Last 24 Hours: My Active Orders 05/21/20 18:21 CORONAVIRUS COVID-19, [facility] Urgent 05/21/20 19:28 BABESIA MICROTI ANTIBODY PANEL Stat LYME, TOTAL AB TEST/REFLEX Stat 05/21/20 19:29 E. CHAFFEENSIS-HME (MONOCYTIC) Stat
[2020-05-25 11:12] LABS: LYME IGG/IGM AB <0.91 ISR (0.00-0.90)
[2020-05-25 16:12] LABS: BABESIA MICROTI IGG <1:10 (Neg:<1:10); BABESIA MICROTI IGM <1:10 (Neg:<1:10)
[2020-05-26 14:13] LABS: E. CHAFFEENSIS (HME) IGG TITER Negative (Neg:<1:64); E. CHAFFEENSIS (HME) IGM TITER Negative (Neg:<1:20)
== END 2020-05-21 19:50 | disposition home or self-care (01) ==
LOC: JP.ED 16:53
DX: B34.9 Viral infection, unspecified (principal); I11.0 Hypertensive heart disease with heart failure; I50.9 Heart failure, unspecified; I25.10 Atherosclerotic heart disease of native coronary artery without angina pectoris; E78.00 Pure hypercholesterolemia, unspecified; M10.9 Gout, unspecified; E11.9 Type 2 diabetes mellitus without complications; E66.9 Obesity, unspecified; Z68.42 Body mass index [BMI] 45.0-49.9, adult; Z88.1 Allergy status to other antibiotic agents; Z88.8 Allergy status to other drugs, medicaments and biological substances; Z91.030 Bee allergy status; Z88.7 Allergy status to serum and vaccine; Z91.018 Allergy to other foods; Z91.041 Radiographic dye allergy status; Z79.899 Other long term (current) drug therapy; Z79.82 Long term (current) use of aspirin; Z79.02 Long term (current) use of antithrombotics/antiplatelets; Z79.84 Long term (current) use of oral hypoglycemic drugs; Z20.828 Contact with and (suspected) exposure to other viral communicable diseases
CPT/HCPCS: 36415; 85025; 86140; 86618; 86666; 86666-59; 86753; 99282; 99283; U0002

== ENCOUNTER 2020-06-15 17:55 | Emergency (ER) | payer BC ==
[2020-06-15] MEDS ORDERED: Aspirin 81 MG Tab.Chew PO ONE (18:40)
--- NOTE | 2020-06-15 18:46 | EDM.PDOC ---
<Kirti Tejeda M - Last Filed: 06/15/20 19:40> ED HPI GENERAL MEDICAL PROBLEM - General Chief Complaint: Chest Pain Stated Complaint: CHEST PAINS,SOB Time Seen by Provider: 06/15/20 18:41 Source of Information: Reports: Patient, RN, RN Notes Reviewed, Significant Other History Limitations: Reports: No Limitations - History of Present Illness INITIAL COMMENTS - FREE TEXT/NARRATIVE: Pt arrived with spouse via private vehicle. Pt CC CP since 0900. Was feeding the 2 dogs and felt the CP and SOB affect him. claims the pain was radiating from chest to L arm and BL jaws. At worst, pain was 7/10. Did indicate he took 1 nitro and helped some. Most times the nitro do not relieve the CP. At rest, pain is 3/10. Pt denies pain at this moment while lying on the stretcher. June 2019 cardiac stress test completed and then July 2019 had 3 stents placed at [facility]. Did call cardiac dr today for appt June 30 for continuing CP and symptomatology. Onset: Today Onset Date: 06/15/20 Onset Time: 07:00 Duration: Hour(s): Location: Reports: Chest Quality: Reports: Ache, Pressure Severity: Mild Improves with: Reports: Rest Worsens with: Reports: Movement Treatments MAINTENANCE DATA ANALYST: Reports: Nitroglycerin chest pain Pain Score (Numeric/FACES): 3 - Related Data Allergies Allergy/AdvReac Type Severity Reaction Status Date / Time iodine Allergy Intermediate Hives Verified 06/15/20 18:10 atorvastatin [From Lipitor] Allergy Cannot Verified 06/15/20 18:10 Remember celecoxib [From Celebrex] Allergy Cannot Verified 06/15/20 18:10 Remember colchicine Allergy Cannot Verified 06/15/20 18:10 Remember Iodinated Contrast Media Allergy Cannot Verified 06/15/20 18:10 [Iodinated Contrast- Oral Remember and IV Dye] naltrexone Allergy Cannot Verified 06/15/20 18:10 Remember niacin Allergy Cannot Verified 06/15/20 18:10 Remember nifedipine [From Procardia] Allergy Hypertensio Verified 06/15/20 18:10 n prazosin HCl [From Minipress] Allergy Hypertensio Verified 06/15/20 18:10 n shellfish derived Allergy Cannot Verified 06/15/20 18:10 Remember tuberculin, purified protein Allergy Cannot Verified 07/29/20 18:10 deriva Remember wheat Allergy Cannot Verified 06/15/20 18:10 Remember doxycycline AdvReac Pain Verified 06/15/20 18:10 nebivolol HCl [From Bystolic] AdvReac Shaking Verified 06/15/20 18:10 Home Meds: Home Meds Potassium Chloride [Potassium Chloride Solution] 20 meq PO DAILY 09/07/13 [History] Rosuvastatin Calcium [Crestor] 40 mg PO BEDTIME 09/07/13 [History] atenoloL [Tenormin] 25 mg PO BID 09/07/13 [History] Cyanocobalamin (Vitamin B-12) [Vitamin B-12] 2,000 mcg PO BID 03/28/16 [History] Albuterol Sulfate [Proair Hfa] 2 puff IH Q4H PRN 08/01/16 [History] Aspirin [Halfprin] 81 mg PO DAILY 08/01/16 [History] allopurinoL [Zyloprim] 300 mg PO BID 08/14/16 [History] glipiZIDE [Glucotrol] 10 mg PO DAILY 06/15/19 [History] Clopidogrel Bisulfate [Clopidogrel] 75 mg PO DAILY 07/27/19 [History] Lisinopril 10 mg PO ACLUNCH 07/27/19 [History] Nitroglycerin 0.4 mg PO ASDIRECTED 07/27/19 [History] Ascorbate Calcium [Vitamin C] 500 mg PO DAILY 08/14/19 [History] Furosemide [Lasix] 20 mg PO DAILY 08/14/19 [History] Isosorbide Mononitrate [Imdur] 30 mg PO BEDTIME 08/14/19 [History] Liraglutide [Victoza] 1.8 mg SUBCUT DAILY 08/14/19 [History] Magnesium Oxide [Magnesium] 400 mg PO BID 08/14/19 [History] prednisoLONE acetate [Pred Forte 1% Ophth Susp] 1 drop EYEBOTH QID 08/14/19 [History] Indomethacin 50 mg PO TID PRN 05/08/20 [History] Furosemide 40 mg PO BEDTIME 05/21/20 [History] Turmeric Root Extract [Turmeric] 2 tab PO DAILY 05/21/20 [History] metFORMIN [Glucophage] 1,000 mg PO BID 05/21/20 [History] Fish Oil/[place]-3 Fatty Acids [Fish Oil 1,000 MG] 1 cap PO BID 06/15/20 [History] Past Medical History HEENT History: Reports: Allergic Rhinitis, Impaired Vision Cardiovascular History: Reports: CAD, Heart Failure, Heart Murmur, High Cholesterol, Hypertension, SOB on Exertion, Stents Respiratory History: Reports: Pneumonia, Recurrent, Other (See Below) Other Respiratory History: seasonal allergies with use of albuterol as needed. Gastrointestinal History: Reports: Other (See Below) Other Gastrointestinal History: meckles diverticuloma Musculoskeletal History: Reports: Back Pain, Chronic, Fracture, Gout, Neck Pain, Chronic, Osteoarthritis Endocrine/Metabolic History: Reports: Diabetes, Type II, Obesity/BMI 30+ Hematologic History: Reports: Blood Transfusion(s) Dermatologic History: Reports: Venous Stasis Dermatitis - Infectious Disease History Infectious Disease History: Reports: Chicken Pox - Past Surgical History Head Surgeries/Procedures: Reports: None HEENT Surgical History: Reports: Oral Surgery Cardiovascular Surgical History: Reports: Coronary Artery Stent, Percutaneous Transluminal Angioplasty Other Cardiovascular Surgeries/Procedures: angio in oct 2019 -good Respiratory Surgical History: Reports: None GI Surgical History: Reports: Appendectomy, EGD Male Surgical History: Reports: None Endocrine Surgical History: Reports: None Musculoskeletal Surgical History: Reports: Other (See Below) Other Musculoskeletal Surgeries/Procedures:: surgical repair of right bicep. left elbow bursa removed Dermatological Surgical History: Reports: None Social & Family History - Family History Family Medical History: Noncontributory Cardiac: Reports: CAD, High Cholesterol, Hypertension, [place] - Tobacco Use Smoking Status *Q: Never Smoker - Caffeine Use Caffeine Use: Reports: Coffee, Soda Other Caffeine Use: Pepsi - Recreational Drug Use Recreational Drug Use: No - Living Situation & Occupation Living situation: Reports: Occupation: Employed (lives with Liza in [place], [place]. 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[place], [place].) ED ROS GENERAL - Review of Systems Review Of Systems: See Below Constitutional: Reports: No Symptoms HEENT: Reports: No Symptoms Respiratory: Reports: Shortness of Breath (Due to CP) Cardiovascular: Reports: Chest Pain, Dyspnea on Exertion, Edema Endocrine: Reports: No Symptoms GI/Abdominal: Reports: No Symptoms : Reports: No Symptoms Musculoskeletal: Reports: No Symptoms Skin: Reports: Mottled, Dryness, Erythema, Wound, Change in Color Neurological: Reports: No Symptoms Psychiatric: Reports: No Symptoms Hematologic/Lymphatic: Reports: No Symptoms Immunologic: Reports: No Symptoms ED EXAM, GENERAL - Physical Exam Exam: See Below Exam Limited By: No Limitations General Appearance: Alert, WD/WN, No Apparent Distress, Mild Distress Head: Normocephalic Neck: Normal Inspection Respiratory/Chest: Lungs Clear, Normal Breath Sounds, No Accessory Muscle Use, Other (SOB r/t CP) Cardiovascular: Normal Peripheral Pulses, Regular Rate, Rhythm, No Edema GI/Abdominal: Normal Bowel Sounds, Soft, Non-Tender, No Distention (Male) Exam: Deferred Rectal (Males) Exam: Deferred Extremities: Pedal Edema, Slow Capillary Refill, Joint Swelling, Mottled, Redness, Other (BLLE reduced vascularization with small ulcers) Neurological: Alert, Oriented, CN II-XII Intact, Normal Cognition Psychiatric: Normal Affect Skin Exam: Warm, Dry, Erythema, Increased Warmth, Mottled, Wound/Incision Lymphatic: No Adenopathy Course - Re-Assessments/Exams Free Text/Narrative Re-Assessment/Exam: 06/15/20 18:51 Examine pt. Labs, imaging, and meds ordered. Departure - Departure Time of Disposition: 19:40 Disposition: Home, Self-Care 01 Condition: Good Clinical Impression: Chest pain Instructions: Angina, [id number] Referrals: Adrian Leslie NP [Primary Care Provider] - Forms: ED Department Discharge Additional Instructions: Please contact pre school teacher in the am and schedule a sooner appt than June. Should your chest pain return,please do not hesitate to come back to the ER. Rest. Hydrate. Take all of your medications as prescribed. Sepsis Event Note (ED) - Evaluation Sepsis Screening Result: No Definite Risk - Problem List & Annotations (1) Angina of effort SNOMED Code(s): 307257226 Code(s): I20.8 - OTHER FORMS OF ANGINA PECTORIS Status: Acute Current Visit: Yes - Problem List Review Problem List Initiated/Reviewed/Updated: Yes - Assessment/Plan Plan: Please contact pre school teacher in the am and schedule a sooner appt than June. Should your chest pain return,please do not hesitate to come back to the ER. Rest. Hydrate. Take all of your medications as prescribed. <OfficerTim - Last Filed: 06/15/20 19:46> ED HPI GENERAL MEDICAL PROBLEM - History of Present Illness INITIAL COMMENTS - FREE TEXT/NARRATIVE: Chest pain has gotten worse over the last couple of weeks today was by far the worst lasting 12 hours with radiations up the jaw down into the arm it is relieved by rest he did try nitro with no relief ED EXAM, GENERAL - Physical Exam Free Text/Narrative:: Agree with exam below Course - Vital Signs Last Recorded V/S: Last Vital Signs Temp 97.8 F 06/15/20 18:16 Pulse 74 06/15/20 19:32 Resp 21 H 06/15/20 19:32 BP 134/86 06/15/20 19:32 Pulse Ox 97 06/15/20 19:32 - Orders/Labs/Meds Orders: Active Orders 24 hr Category Date Time Status EKG Documentation Completion [RC] ASDIRECTED Care 06/15/20 18:35 Active Chest 1V Frontal [CR] Stat Exams 06/15/20 18:35 Taken EKG 12 Lead [EK] Routine Ther 06/15/20 18:34 Ordered Labs: Laboratory Tests 06/15/20 06/15/20 06/15/20 Range/Units 18:53 18:53 19:04 WBC 9.2 (4.5-11.0) K/uL RBC 4.59 (4.30-5.90) M/uL Hgb 13.7 (12.0-15.0) g/dL Hct 41.6 (40.0-54.0) % MCV 91 (80-98) fL MCH 30 (27-31) pg MCHC 33 (32-36) % Plt Count 165 (150-400) K/uL Neut % (Auto) 65 (36-66) % Lymph % (Auto) 24 (24-44) % [place] % (Auto) 7 H (2-6) % Eos % (Auto) 4 (2-4) % Baso % (Auto) 1 (0-1) % Sodium 141 (140-148) mmol/L Potassium 3.7 (3.6-5.2) mmol/L Chloride 102 (100-108) mmol/L Carbon Dioxide 29 (21-32) mmol/L Anion Gap 9.6 (5.0-14.0) mmol/L BUN 16 (7-18) mg/dL Creatinine 1.1 (0.8-1.3) mg/dL Est Cr Clr Drug Dosing 78.38 mL/min Estimated GFR (MDRD) > 60 (>60) Glucose 139 H (74-106) mg/dL Calcium 8.8 (8.5-10.1) mg/dL Troponin I < 0.017 (0.000-0.056) ng/mL NT-Pro-B Natriuret Pep 20 (5-125) pg/mL Meds: Medications Discontinued Medications Generic Name Dose Route Start Last Admin Trade Name Drew PRN Reason Stop Dose Admin Aspirin 324 mg 06/15/20 18:40 06/15/20 18:47 Aspirin PO 06/15/20 18:41 324 mg ONETIME ONE Administration Sepsis Event Note (ED) - Focused Exam Vital Signs: Vital Signs Temp Pulse Resp BP Pulse Ox 06/15/20 19:32 74 21 H 134/86 97 06/15/20 19:10 75 133/81 93 L 06/15/20 18:16 97.8 F 78 12 157/86 H 94 L - Assessment/Plan Plan: Assessment Acuity = acute Site and laterality = chest pain Etiology = unknown etiology Manifestations = none Location of injury = Home Lab values = CBC, CMP, troponin within normal limits EKG demonstrates normal sinus rhythm no signs of ST elevation or depression, chest x-ray shows no acute process official read radiologist pending Plan We did review options with him including hospital admission further troponins he declined at this time he is going to try and schedule an appointment with his cardiology group tomorrow at [facility] This note was dictated using 9facts voice recognition software please call with any questions on syntax or grammar.
[2020-06-15 19:33] VITALS: BP 134/86; PULSE 74
--- NOTE | 2020-06-16 09:13 | CR ---
CHEST: Portable 06/15/2020 at 7:07 PM CLINICAL HISTORY:Chest pain COMPARISON:2019 FINDINGS: The heart size, pulmonary vascularity and hilar structures are normal. No infiltrate effusion or pneumothorax is seen. There are moderate atherosclerotic changes in the aorta. IMPRESSION: No acute cardiopulmonary process.
== END 2020-06-15 19:53 | disposition home or self-care (01) ==
LOC: JP.ED 17:55
DX: R07.9 Chest pain, unspecified (principal); I11.0 Hypertensive heart disease with heart failure; I50.9 Heart failure, unspecified; I25.10 Atherosclerotic heart disease of native coronary artery without angina pectoris; E78.00 Pure hypercholesterolemia, unspecified; M10.9 Gout, unspecified; E11.9 Type 2 diabetes mellitus without complications; E66.9 Obesity, unspecified; Z68.42 Body mass index [BMI] 45.0-49.9, adult; Z88.8 Allergy status to other drugs, medicaments and biological substances; Z91.041 Radiographic dye allergy status; Z88.7 Allergy status to serum and vaccine; Z88.1 Allergy status to other antibiotic agents; Z91.018 Allergy to other foods; Z91.013 Allergy to seafood; Z79.899 Other long term (current) drug therapy; Z79.82 Long term (current) use of aspirin; Z79.02 Long term (current) use of antithrombotics/antiplatelets; Z79.01 Long term (current) use of anticoagulants; Z79.84 Long term (current) use of oral hypoglycemic drugs
CPT/HCPCS: 36415; 71045; 80048; 83880; 84484; 85025; 93005; 99285; A9270; 93010; 99284

== ENCOUNTER 2020-10-23 13:52 | Emergency (ER) | payer BC ==
[2020-10-23 14:30] VITALS: BP 145/81; PULSE 78
[2020-10-23] MEDS ORDERED: Acetaminophen/HYDROcodone 325-5 MG Tab PO ONE (15:17)
--- NOTE | 2020-10-23 15:22 | EDM.PDOC ---
ED HPI GENERAL MEDICAL PROBLEM - General Chief Complaint: Lower Extremity Injury/Pain Stated Complaint: R KNEE PAIN Time Seen by Provider: 10/23/20 15:05 Source of Information: Reports: Patient, Old Records, RN History Limitations: Reports: No Limitations - History of Present Illness INITIAL COMMENTS - FREE TEXT/NARRATIVE: 60 yo male with known DJD of his knees presents with increased L knee pain over the past 5 days. Has not been in to see his primary regarding this in this interval. Had somewhat recent cortisone injections in both knees. Has a walker at home. Is taking ibuprofen and acetaminophen without relief. Onset: Gradual Duration: Chronic, Getting Worse Location: Reports: Lower Extremity, Left Quality: Reports: Sharp Severity: Moderate Improves with: Reports: Rest Worsens with: Reports: Movement Context: Reports: Other (See HPI) Associated Symptoms: Reports: No Other Symptoms Treatments WRIST HEMMER: Reports: Acetaminophen, NSAIDS - Related Data Allergies Allergy/AdvReac Type Severity Reaction Status Date / Time iodine Allergy Intermediate Hives Verified 10/23/20 14:27 atorvastatin [From Lipitor] Allergy Cannot Verified 10/23/20 14:27 Remember celecoxib [From Celebrex] Allergy Cannot Verified 10/23/20 14:27 Remember colchicine Allergy Cannot Verified 10/23/20 14:27 Remember Iodinated Contrast Media Allergy Cannot Verified 10/23/20 14:27 [Iodinated Contrast- Oral Remember and IV Dye] naltrexone Allergy Cannot Verified 10/23/20 14:27 Remember niacin Allergy Cannot Verified 10/23/20 14:27 Remember nifedipine [From Procardia] Allergy Hypertensio Verified 10/23/20 14:27 n prazosin HCl [From Minipress] Allergy Hypertensio Verified 10/23/20 14:27 n shellfish derived Allergy Cannot Verified 10/23/20 14:27 Remember tuberculin, purified protein Allergy Cannot Verified 10/23/20 14:27 deriva Remember wheat Allergy Cannot Verified 10/23/20 14:27 Remember doxycycline AdvReac Pain Verified 10/23/20 14:27 nebivolol HCl [From Bystolic] AdvReac Shaking Verified 10/23/20 14:27 Home Meds: Home Meds Potassium Chloride [Potassium Chloride Solution] 20 meq PO DAILY 09/07/13 [History] Rosuvastatin Calcium [Crestor] 40 mg PO BEDTIME 09/07/13 [History] atenoloL [Tenormin] 25 mg PO BID 09/07/13 [History] Cyanocobalamin (Vitamin B-12) [Vitamin B-12] 2,000 mcg PO BID 03/28/16 [History] Albuterol Sulfate [Proair Hfa] 2 puff IH Q4H PRN 08/01/16 [History] Aspirin [Halfprin] 81 mg PO DAILY 08/01/16 [History] allopurinoL [Zyloprim] 300 mg PO BID 08/14/16 [History] glipiZIDE [Glucotrol] 10 mg PO DAILY 06/15/19 [History] Clopidogrel Bisulfate [Clopidogrel] 75 mg PO DAILY 07/27/19 [History] Lisinopril 10 mg PO ACLUNCH 07/27/19 [History] Nitroglycerin 0.4 mg PO ASDIRECTED 07/27/19 [History] Ascorbate Calcium [Vitamin C] 500 mg PO DAILY 08/14/19 [History] Furosemide [Lasix] 20 mg PO DAILY 08/14/19 [History] Isosorbide Mononitrate [Imdur] 30 mg PO BEDTIME 08/14/19 [History] Liraglutide [Victoza] 1.8 mg SUBCUT DAILY 08/14/19 [History] Magnesium Oxide [Magnesium] 400 mg PO BID 08/14/19 [History] prednisoLONE acetate [Pred Forte 1% Ophth Susp] 1 drop EYEBOTH QID 08/14/19 [History] Indomethacin 50 mg PO TID PRN 05/08/20 [History] Furosemide 40 mg PO BEDTIME 05/21/20 [History] Turmeric Root Extract [Turmeric] 2 tab PO DAILY 05/21/20 [History] metFORMIN [Glucophage] 1,000 mg PO BID 05/21/20 [History] Fish Oil/Mead-3 Fatty Acids [Fish Oil 1,000 MG] 1 cap PO BID 06/15/20 [History] Albuterol Sulfate 1 ampule INH Q4HR PRN 10/23/20 [History] Past Medical History HEENT History: Reports: Allergic Rhinitis, Impaired Vision Cardiovascular History: Reports: CAD, Heart Failure, Heart Murmur, High Cholesterol, Hypertension, SOB on Exertion, Stents Respiratory History: Reports: Pneumonia, Recurrent, Other (See Below) Other Respiratory History: seasonal allergies with use of albuterol as needed. Gastrointestinal History: Reports: Other (See Below) Other Gastrointestinal History: meckles diverticuloma Musculoskeletal History: Reports: Back Pain, Chronic, Fracture, Gout, Neck Pain, Chronic, Osteoarthritis Endocrine/Metabolic History: Reports: Diabetes, Type II, Obesity/BMI 30+ Hematologic History: Reports: Blood Transfusion(s) Dermatologic History: Reports: Venous Stasis Dermatitis - Infectious Disease History Infectious Disease History: Reports: Chicken Pox - Past Surgical History Head Surgeries/Procedures: Reports: None HEENT Surgical History: Reports: Oral Surgery Cardiovascular Surgical History: Reports: Coronary Artery Stent, Percutaneous Transluminal Angioplasty Other Cardiovascular Surgeries/Procedures: angio in oct 2019 -good Respiratory Surgical History: Reports: None GI Surgical History: Reports: Appendectomy, EGD Male Surgical History: Reports: None Endocrine Surgical History: Reports: None Musculoskeletal Surgical History: Reports: Other (See Below) Other Musculoskeletal Surgeries/Procedures:: surgical repair of right bicep. left elbow bursa removed Dermatological Surgical History: Reports: None Social & Family History - Family History Family Medical History: No Pertinent Family History Cardiac: Reports: CAD, High Cholesterol, Hypertension, [place] - Tobacco Use Tobacco Use Status *Q: Never Tobacco User - Caffeine Use Caffeine Use: Reports: Coffee, Soda Other Caffeine Use: Pepsi - Living Situation & Occupation Living situation: Reports: Occupation: Employed (lives with Liza in [place], [place]. 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 Denies: Joint Swelling Skin: Reports: No Symptoms ED EXAM, GENERAL - Physical Exam Exam: See Below Exam Limited By: No Limitations General Appearance: Alert, WD/WN, No Apparent Distress, Obese Extremities: Normal Inspection, Normal Range of Motion, No Pedal Edema, Other (medial jt line pain of L knee. ). No: Non-Tender, Pedal Edema, Joint Swelling, Limited Range of Motion, Increased Warmth, Redness Neurological: Alert, Oriented, CN II-XII Intact, Normal Cognition, No Motor/Sensory Deficits Psychiatric: Normal Affect, Normal Mood Skin Exam: Warm, Dry, Intact, Normal Color, No Rash Course - Vital Signs Last Recorded V/S: Last Vital Signs Temp 36.3 C 10/23/20 14:35 Pulse 78 10/23/20 14:35 Resp 20 10/23/20 14:35 BP 145/81 H 10/23/20 14:35 Pulse Ox 94 L 10/23/20 14:35 - Orders/Labs/Meds Orders: Active Orders 24 hr Category Date Time Status Acetaminophen/HYDROcodone [Bessemer 325-5 MG] Med 10/23/20 15:17 Once 1 tab PO ONETIME ONE Departure - Departure Time of Disposition: 15:30 Disposition: Home, Self-Care 01 Condition: Fair Clinical Impression: DJD (degenerative joint disease) of knee Qualifiers: Osteoarthritis type: primary Laterality: left Qualified Code(s): M17.12 - Unilateral primary osteoarthritis, left knee - Discharge Information *PRESCRIPTION DRUG MONITORING PROGRAM REVIEWED*: Yes *COPY OF PRESCRIPTION DRUG MONITORING REPORT IN PATIENT EH: Yes Instructions: Preventing Osteoarthritis, Adult, What You Need to Know About Osteoarthritis Referrals: Adrian Leslie NP [Primary Care Provider] - Additional Instructions: Continue either ibuprofen OR Aleve. Take B[place]mer as directed for added relief. Use your walker to take weight off of that leg. See your provider this week. Sepsis Event Note (ED) - Evaluation Sepsis Screening Result: No Definite Risk - Focused Exam Vital Signs: Vital Signs Temp Pulse Resp BP Pulse Ox 10/23/20 14:35 36.3 C 78 20 145/81 H 94 L 10/23/20 14:25 36.3 C 78 20 145/81 H 94 L - My Orders Last 24 Hours: My Active Orders 10/23/20 15:17 Acetaminophen/HYDROcodone [Bessemer 325-5 MG] 1 tab PO ONETIME ONE - Assessment/Plan Last 24 Hours: My Active Orders 10/23/20 15:17 Acetaminophen/HYDROcodone [Bessemer 325-5 MG] 1 tab PO ONETIME ONE
== END 2020-10-23 15:33 | disposition home or self-care (01) ==
LOC: JP.ED 13:52
DX: M17.12 Unilateral primary osteoarthritis, left knee (principal); I11.0 Hypertensive heart disease with heart failure; I50.9 Heart failure, unspecified; E78.00 Pure hypercholesterolemia, unspecified; E11.9 Type 2 diabetes mellitus without complications; E66.9 Obesity, unspecified; I25.10 Atherosclerotic heart disease of native coronary artery without angina pectoris; Z95.5 Presence of coronary angioplasty implant and graft; Z90.49 Acquired absence of other specified parts of digestive tract; Z88.8 Allergy status to other drugs, medicaments and biological substances; Z88.1 Allergy status to other antibiotic agents; Z91.018 Allergy to other foods; Z91.041 Radiographic dye allergy status; Z79.82 Long term (current) use of aspirin; Z79.02 Long term (current) use of antithrombotics/antiplatelets; Z79.899 Other long term (current) drug therapy
CPT/HCPCS: 99283; A9270-GY

== ENCOUNTER 2020-12-15 21:28 | Emergency (ER) | payer OTHER ==
[2020-12-15] MEDS ORDERED: Sodium Chloride 0.9% 10 ML Syringe FLUSH PRN (21:30)
[2020-12-15] MEDS ORDERED: Aspirin 81 MG Tab.Chew ONE (21:37)
[2020-12-15] MEDS ORDERED: Aspirin 81 MG Tab.Chew PO ONE ×2 (21:40→21:41)
[2020-12-15 21:46] VITALS: PULSE 81
--- NOTE | 2020-12-15 22:35 | EDM.PDOC ---
ED HPI GENERAL MEDICAL PROBLEM - General Chief Complaint: Chest Pain Stated Complaint: CHEST PAIN/PRESSURE Time Seen by Provider: 12/15/20 21:30 Source of Information: Reports: Patient History Limitations: Reports: No Limitations - History of Present Illness INITIAL COMMENTS - FREE TEXT/NARRATIVE: Esteban is a 60-year-old male presenting to the ED for evaluation of intermittent chest pain and pressure. The patient first developed symptoms around 1700 hrs. tonight which resolved after taking a single sublingual nitroglycerin. His pain returned around 2000 hrs. this evening and has been persistent since then. Patient did not take any subsequent nitroglycerin or aspirin. The patient does have a history significant for coronary artery disease having undergone stent placement at [facility] several years ago. Is also presented several times to the ED for nonspecific chest pain with a negative work-up. He does report having chest tightness which is causing some shortness of breath and some nausea. He is reporting pain up into the left jaw. The pain does not worsen with inspiration. In addition to the history of coronary artery disease, the patient also has a history significant for diabetes, hyperlipidemia, and hypertension. He is scheduled to undergo a nuclear medicine stress test next month on December 22. The patient does have a history of three stents being placed at [facility] in July 2019. This followed an abnormal stress test resulting in his further cardiac work-up and ultimately angioplasty. Left Middle Chest Pain Score (Numeric/FACES): 6 - Related Data Allergies Allergy/AdvReac Type Severity Reaction Status Date / Time iodine Allergy Intermediate Hives Verified 10/23/20 14:27 atorvastatin [From Lipitor] Allergy Cannot Verified 10/23/20 14:27 Remember celecoxib [From Celebrex] Allergy Cannot Verified 10/23/20 14:27 Remember colchicine Allergy Cannot Verified 10/23/20 14:27 Remember Iodinated Contrast Media Allergy Cannot Verified 10/23/20 14:27 [Iodinated Contrast- Oral Remember and IV Dye] naltrexone Allergy Cannot Verified 10/23/20 14:27 Remember niacin Allergy Cannot Verified 10/23/20 14:27 Remember nifedipine [From Procardia] Allergy Hypertensio Verified 10/23/20 14:27 n prazosin HCl [From Minipress] Allergy Hypertensio Verified 10/23/20 14:27 n shellfish derived Allergy Cannot Verified 10/23/20 14:27 Remember tuberculin, purified protein Allergy Cannot Verified 10/23/20 14:27 deriva Remember wheat Allergy Cannot Verified 10/23/20 14:27 Remember doxycycline AdvReac Pain Verified 10/23/20 14:27 nebivolol HCl [From Bystolic] AdvReac Shaking Verified 10/23/20 14:27 Home Meds: Home Meds Potassium Chloride [Potassium Chloride Solution] 20 meq PO DAILY 09/07/13 [History] Rosuvastatin Calcium [Crestor] 40 mg PO BEDTIME 09/07/13 [History] atenoloL [Tenormin] 25 mg PO BID 09/07/13 [History] Cyanocobalamin (Vitamin B-12) [Vitamin B-12] 2,000 mcg PO BID 03/28/16 [History] Albuterol Sulfate [Proair Hfa] 2 puff IH Q4H PRN 08/01/16 [History] Aspirin [Halfprin] 81 mg PO DAILY 08/01/16 [History] allopurinoL [Zyloprim] 400 mg PO BID 08/14/16 [History] glipiZIDE [Glucotrol] 10 mg PO DAILY 06/15/19 [History] Clopidogrel Bisulfate [Clopidogrel] 75 mg PO DAILY 07/27/19 [History] Lisinopril 10 mg PO ACLUNCH 07/27/19 [History] Nitroglycerin 0.4 mg PO ASDIRECTED 07/27/19 [History] Ascorbate Calcium [Vitamin C] 500 mg PO DAILY 08/14/19 [History] Isosorbide Mononitrate [Imdur] 30 mg PO BEDTIME 08/14/19 [History] Liraglutide [Victoza] 1.8 mg SUBCUT DAILY 08/14/19 [History] Magnesium Oxide [Magnesium] 400 mg PO BID 08/14/19 [History] prednisoLONE acetate [Pred Forte 1% Ophth Susp] 1 drop EYEBOTH QID 08/14/19 [History] Indomethacin 50 mg PO TID PRN 05/08/20 [History] Turmeric Root Extract [Turmeric] 2 tab PO DAILY 05/21/20 [History] metFORMIN [Glucophage] 1,000 mg PO BID 05/21/20 [History] Fish Oil/[place]-3 Fatty Acids [Fish Oil 1,000 MG] 1 cap PO BID 06/15/20 [History] Acetaminophen/HYDROcodone [Graham 325-5 MG] 1 - 2 tab PO Q6H PRN #14 tab 10/23/20 [Rx] Albuterol Sulfate 1 ampule INH Q4HR PRN 10/23/20 [History] Furosemide [Lasix] 30 mg PO BID 12/15/20 [History] Past Medical History HEENT History: Reports: Allergic Rhinitis, Impaired Vision Cardiovascular History: Reports: CAD, Heart Failure, Heart Murmur, High Cholesterol, Hypertension, SOB on Exertion, Stents Respiratory History: Reports: Pneumonia, Recurrent, Other (See Below) Other Respiratory History: seasonal allergies with use of albuterol as needed. Gastrointestinal History: Reports: Other (See Below) Other Gastrointestinal History: meckles diverticuloma Musculoskeletal History: Reports: Back Pain, Chronic, Fracture, Gout, Neck Pain, Chronic, Osteoarthritis Endocrine/Metabolic History: Reports: Diabetes, Type II, Obesity/BMI 30+ Hematologic History: Reports: Blood Transfusion(s) Dermatologic History: Reports: Venous Stasis Dermatitis - Infectious Disease History Infectious Disease History: Reports: Chicken Pox - Past Surgical History Head Surgeries/Procedures: Reports: None HEENT Surgical History: Reports: Oral Surgery Cardiovascular Surgical History: Reports: Coronary Artery Stent, Percutaneous Transluminal Angioplasty Other Cardiovascular Surgeries/Procedures: angio in oct 2019 -good Respiratory Surgical History: Reports: None GI Surgical History: Reports: Appendectomy, EGD Male Surgical History: Reports: None Endocrine Surgical History: Reports: None Musculoskeletal Surgical History: Reports: Other (See Below) Other Musculoskeletal Surgeries/Procedures:: surgical repair of right bicep. left elbow bursa removed Dermatological Surgical History: Reports: None Social & Family History - Family History Family Medical History: No Pertinent Family History Cardiac: Reports: CAD, High Cholesterol, Hypertension, [place] - Tobacco Use Tobacco Use Status *Q: Never Tobacco User Second Hand Smoke Exposure: No - Caffeine Use Caffeine Use: Reports: Coffee Other Caffeine Use: 1 cup - Recreational Drug Use Recreational Drug Use: No - Living Situation & Occupation Living situation: Reports: Occupation: Employed (lives with Liza in [place], [place]. 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 Denies: Vomiting : Reports: No Symptoms Musculoskeletal: Reports: No Symptoms Skin: Reports: No Symptoms Neurological: Reports: No Symptoms Psychiatric: Reports: No Symptoms Hematologic/Lymphatic: Reports: No Symptoms Immunologic: Reports: No Symptoms ED EXAM, GENERAL - Physical Exam Exam: See Below Exam Limited By: No Limitations General Appearance: Alert, No Apparent Distress Eye Exam: Bilateral Eye: EOMI, PERRL Throat/Mouth: Normal Inspection, Normal Lips, Normal Teeth, Normal Oropharynx, Normal Voice, No Airway Compromise Head: Atraumatic, Normocephalic Neck: Normal Inspection, Supple, Non-Tender, Full Range of Motion. No: Carotid Bruit Respiratory/Chest: No Respiratory Distress, Lungs Clear, Normal Breath Sounds, Chest Non-Tender. No: Rales, Rhonchi Cardiovascular: Normal Peripheral Pulses, Regular Rate, Rhythm, No Gallop, No JVD, No Murmur Peripheral Pulses: 2+: Radial (L), Radial (R), Posterior Tibial (L), Posterior Tibial (R) GI/Abdominal: Normal Bowel Sounds, Soft, Non-Tender Back Exam: Normal Inspection, Full Range of Motion Extremities: Pedal Edema (3+ pitting edema bilaterally to mid calf.) Neurological: Alert, Oriented, Normal Cognition, No Motor/Sensory Deficits Psychiatric: Normal Affect Skin Exam: Warm, Intact, Erythema (Chronic erythema of the lower extremities consistent with venous insufficiency dermatitis) Lymphatic: No Adenopathy #1 Interpretation EKG Date: 12/15/20 Time: 21:37 Rhythm: NSR Rate (Beats/Min): 80 [place]: LAD-Left [place] Deviation P-Wave: Present QRS: Normal ST-T: Normal QT: Normal Comparison: No Change #2 Interpretation EKG Date: 12/15/20 Time: 23:08 Rhythm: NSR Rate (Beats/Min): 71 [place]: Normal P-Wave: Present QRS: Normal ST-T: Normal QT: Normal Comparison: No Change Course - Vital Signs Last Recorded V/S: Last Vital Signs Temp 36.2 C 12/15/20 21:31 Pulse 81 12/15/20 21:31 Resp 14 12/16/20 00:46 BP 128/77 12/16/20 00:46 Pulse Ox 95 12/16/20 00:46 - Orders/Labs/Meds Orders: Active Orders 24 hr Category Date Time Status EKG Documentation Completion [RC] ASDIRECTED Care 12/15/20 21:31 Active EKG Documentation Completion [RC] ASDIRECTED Care 12/15/20 23:11 Active Chest 2V [CR] Stat Exams 12/15/20 22:29 Taken CORONAVIRUS COVID-19 RAPID [MOLEC] Stat Lab 12/16/20 01:26 Received Nitroglycerin [Nitrostat] Med 12/15/20 23:42 Active 0.4 mg SL Q5M PRN Sodium Chloride 0.9% [Saline Flush] Med 12/15/20 21:30 Active 10 ml FLUSH ASDIRECTED PRN Saline Lock Insert [OM.PC] Routine Oth 12/15/20 21:30 Ordered EKG 12 Lead [EK] Routine Ther 12/15/20 21:30 Ordered EKG 12 Lead [EK] Routine Ther 12/15/20 23:11 Ordered Medication Orders Nitroglycerin (Nitrostat) 0.4 mg SL Q5M PRN PRN Reason: Chest Pain Last Admin: 12/15/20 23:46 Dose: 0.4 mg Documented by: CHAU Sodium Chloride (Saline Flush) 10 ml FLUSH ASDIRECTED PRN PRN Reason: Keep Vein Open Labs: Laboratory Tests 12/15/20 12/15/20 12/15/20 Range/Units 21:30 21:30 21:40 WBC 9.2 (4.5-11.0) K/uL RBC 4.39 (4.30-5.90) M/uL Hgb 13.3 (12.0-15.0) g/dL Hct 40.3 (40.0-54.0) % MCV 92 (80-98) fL MCH 30 (27-31) pg MCHC 33 (32-36) % Plt Count 197 (150-400) K/uL Neut % (Auto) 67 H (36-66) % Lymph % (Auto) 24 (24-44) % Loving % (Auto) 6 (2-6) % Eos % (Auto) 2 (2-4) % Baso % (Auto) 0 (0-1) % PT 10.4 (9.5-12.0) sec INR 0.95 (0.80-1.20) APTT 25.2 L (27.0-36.0) sec D-Dimer, Quantitative 338.25 (0.0-500.0) ng/mL Sodium (140-148) mmol/L Potassium (3.6-5.2) mmol/L Chloride (100-108) mmol/L Carbon Dioxide (21-32) mmol/L Anion Gap (5.0-14.0) mmol/L BUN (7-18) mg/dL Creatinine (0.8-1.3) mg/dL Est Cr Clr Drug Dosing Estimated GFR (MDRD) (>60) Glucose (74-106) mg/dL Calcium (8.5-10.1) mg/dL Total Bilirubin (0.2-1.0) mg/dL AST (15-37) U/L ALT (12-78) U/L Alkaline Phosphatase (46-116) U/L Troponin I (0.000-0.056) ng/mL C-Reactive Protein (0.0-0.3) mg/dL NT-Pro-B Natriuret Pep (5-125) pg/mL Total Protein (6.4-8.2) g/dL Albumin (3.4-5.0) g/dL Globulin (2.3-3.5) g/dL Albumin/Globulin Ratio (1.2-2.2) 12/15/20 12/15/20 12/16/20 Range/Units 21:41 21:41 00:45 WBC (4.5-11.0) K/uL RBC (4.30-5.90) M/uL Hgb (12.0-15.0) g/dL Hct (40.0-54.0) % MCV (80-98) fL MCH (27-31) pg MCHC (32-36) % Plt Count (150-400) K/uL Neut % (Auto) (36-66) % Lymph % (Auto) (24-44) % Loving % (Auto) (2-6) % Eos % (Auto) (2-4) % Baso % (Auto) (0-1) % PT (9.5-12.0) sec INR (0.80-1.20) APTT (27.0-36.0) sec D-Dimer, Quantitative (0.0-500.0) ng/mL Sodium 140 (140-148) mmol/L Potassium 3.4 L (3.6-5.2) mmol/L Chloride 102 (100-108) mmol/L Carbon Dioxide 26 (21-32) mmol/L Anion Gap 15.4 H (5.0-14.0) mmol/L BUN 18 (7-18) mg/dL Creatinine 1.1 (0.8-1.3) mg/dL Est Cr Clr Drug Dosing TNP Estimated GFR (MDRD) > 60 (>60) Glucose 237 H (74-106) mg/dL Calcium 8.8 (8.5-10.1) mg/dL Total Bilirubin 0.2 (0.2-1.0) mg/dL AST 12 L (15-37) U/L ALT 34 (12-78) U/L Alkaline Phosphatase 78 (46-116) U/L Troponin I < 0.017 < 0.017 (0.000-0.056) ng/mL C-Reactive Protein 0.56 H (0.0-0.3) mg/dL NT-Pro-B Natriuret Pep 84 (5-125) pg/mL Total Protein 7.3 (6.4-8.2) g/dL Albumin 3.1 L (3.4-5.0) g/dL Globulin 4.2 H (2.3-3.5) g/dL Albumin/Globulin Ratio 0.7 L (1.2-2.2) Meds: Medications Generic Name Dose Route Start Last Admin Trade Name Freq PRN Reason Stop Dose Admin Nitroglycerin 0.4 mg 12/15/20 23:42 12/15/20 23:46 Nitrostat SL 0.4 mg Q5M PRN Administration Chest Pain Sodium Chloride 10 ml 12/15/20 21:30 Saline Flush FLUSH ASDIRECTED PRN Keep Vein Open Discontinued Medications Generic Name Dose Route Start Last Admin Trade Name Freq PRN Reason Stop Dose Admin Aspirin Confirm 12/15/20 21:37 12/15/20 22:50 Aspirin Administered 12/15/20 21:38 Not Given Dose 324 mg .ROUTE .STK-MED ONE Aspirin 324 mg 12/15/20 21:41 Aspirin PO 12/15/20 21:42 ONETIME ONE Aspirin 324 mg 12/15/20 21:40 12/15/20 21:59 Aspirin PO 12/15/20 21:41 324 mg ONETIME ONE Administration Al Hydroxide/Mg Hydroxide 15 0 ml 12/15/20 23:16 12/15/20 23:22 ml/ Lidocaine HCl 15 ml PO 12/15/20 23:17 15 ml ONETIME ONE Administration - Radiology Interpretation Free Text/Narrative:: 2 view chest x-ray shows normal cardiac silhouette. There is mild vascular congestion in the pulmonary system. No evidence for acute infiltrates. Image compared to previous x-ray dated 15 June 2020. - Re-Assessments/Exams Free Text/Narrative Re-Assessment/Exam: 12/15/20 23:15 patient complaining of increasing low retrosternal chest pain rated at 6 out of 10 in intensity. It is causing him some shortness of breath. An EKG was again performed showing normal sinus rhythm with a rate of 71 bpm. There was no acute abnormalities on the EKG. The plan continues to check a delta troponin III hours after his presentation to the ER to see if there is any elevation. The initial troponin is unremarkable. Chest x-ray shows some mild pulmonary congestion so we will check a pro N-terminal BNP to assess for congestive heart failure. In addition, we did administer a GI cocktail in an attempt to eliminate esophagitis as a possible cause for his complaint. 12/15/20 23:43 patient now complaining of 8 out of 10 chest pain. He was given sublingual nitro 0.4 mg by mouth. 12/16/20 00:06 Covarrubias heart score is 4 points putting him at moderate risk with the risk of major acute coronary event of 12 to 16.6%. As the nitroglycerin is brought his pain from an 8 out of 10 down to a 3 out of 10, this is worrisome for crescendo angina. I will do the repeat his troponin in 30 minutes. Ultimately, I believe the patient will need to be transferred likely to [place] or [place] for further cardiac work-up. 12/16/20 01:27 the delta troponin obtained 3 hours after the patient was originally assessed in the ER is also negative the less than 0.017. Because of the elevated HEART score placing the patient in a moderate risk for acute coronary event, I am recommending to transfer the patient to [facility] for further work-up and care. I discussed the case with Dr. Urban, hospitalist at [facility] who accepts the patient in transfer for further evaluation. Departure - Departure Time of Disposition: 01:30 Disposition: DC/Tfer to Acute Hospital 02 Reason for Transfer *Q: Other Condition: Good Clinical Impression: Crescendo angina, History of coronary artery disease, Diabetes mellitus type 2 in obese, Essential hypertension, History of coronary artery stent placement Hyperlipidemia Qualifiers: Hyperlipidemia type: unspecified Qualified Code(s): E78.5 - Hyperlipidemia, unspecified Referrals: Adrian Leslie NP [Primary Care Provider] - Forms: ED Department Discharge Care Plan Goals: I have arranged for you to transfer to [facility] for further evaluation and care of your crescendo angina. My concern is that this is indicative of a subcritical blockage in one of your arteries. Sepsis Event Note (ED) - Evaluation Sepsis Screening Result: No Definite Risk - Focused Exam Vital Signs: Vital Signs Temp Pulse Resp BP BP Pulse Ox 12/16/20 00:46 14 128/77 95 12/16/20 00:30 16 114/78 94 L 12/16/20 00:15 15 133/79 90 L 12/16/20 00:00 13 119/65 93 L 12/15/20 23:46 125/72 12/15/20 23:45 16 120/72 92 L 12/15/20 23:30 20 125/72 92 L 12/15/20 23:15 25 H 124/66 93 L 12/15/20 22:30 20 129/89 91 L 12/15/20 22:15 16 122/71 91 L 12/15/20 22:01 16 127/68 91 L 12/15/20 21:46 16 124/76 94 L 12/15/20 21:31 36.2 C 81 22 H 158/84 H 95 - Problem List & Annotations (1) Chest pain SNOMED Code(s): 54350853 Code(s): R07.9 - CHEST PAIN, UNSPECIFIED Status: Acute Priority: High Current Visit: Yes Qualifiers: Chest pain type: unspecified Qualified Code(s): R07.9 - Chest pain, unspecified (2) History of coronary artery disease SNOMED Code(s): 115984126 Code(s): Z86.79 - PERSONAL HISTORY OF OTHER DISEASES OF THE CIRCULATORY SYSTEM Status: Chronic Priority: High Current Visit: Yes (3) Crescendo angina SNOMED Code(s): 9473346, 110349823 Code(s): I20.0 - UNSTABLE ANGINA Status: Acute Priority: High Current Visit: Yes (4) Diabetes mellitus type 2 in obese SNOMED Code(s): 41459059 Code(s): E11.69 - TYPE 2 DIABETES MELLITUS WITH OTHER SPECIFIED COMPLICATION; E66.9 - OBESITY, UNSPECIFIED Status: Chronic Priority: High Current Visit: Yes (5) Essential hypertension SNOMED Code(s): 84384673 Code(s): I10 - ESSENTIAL (PRIMARY) HYPERTENSION Status: Chronic Priority: High Current Visit: Yes (6) History of coronary artery stent placement SNOMED Code(s): 555922309, 976526433 Code(s): Z95.5 - PRESENCE OF CORONARY ANGIOPLASTY IMPLANT AND GRAFT Status: Chronic Priority: High Current Visit: No (7) Hyperlipidemia SNOMED Code(s): 40336108 Code(s): E78.5 - HYPERLIPIDEMIA, UNSPECIFIED Status: Chronic Priority: High Current Visit: Yes Qualifiers: Hyperlipidemia type: unspecified Qualified Code(s): E78.5 - Hyperlipidemia, unspecified - Problem List Review Problem List Initiated/Reviewed/Updated: Yes - My Orders Last 24 Hours: My Active Orders 12/15/20 21:30 Sodium Chloride 0.9% [Saline Flush] 10 ml FLUSH ASDIRECTED PRN Saline Lock Insert [OM.PC] Routine EKG 12 Lead [EK] Routine 12/15/20 21:31 EKG Documentation Completion [RC] ASDIRECTED 12/15/20 22:29 Chest 2V [CR] Stat 12/15/20 23:11 EKG Documentation Completion [RC] ASDIRECTED EKG 12 Lead [EK] Routine 12/15/20 23:42 Nitroglycerin [Nitrostat] 0.4 mg SL Q5M PRN 12/16/20 01:26 CORONAVIRUS COVID-19 RAPID [MOLEC] Stat - Assessment/Plan Last 24 Hours: My Active Orders 12/15/20 21:30 Sodium Chloride 0.9% [Saline Flush] 10 ml FLUSH ASDIRECTED PRN Saline Lock Insert [OM.PC] Routine EKG 12 Lead [EK] Routine 12/15/20 21:31 EKG Documentation Completion [RC] ASDIRECTED 12/15/20 22:29 Chest 2V [CR] Stat 12/15/20 23:11 EKG Documentation Completion [RC] ASDIRECTED EKG 12 Lead [EK] Routine 12/15/20 23:42 Nitroglycerin [Nitrostat] 0.4 mg SL Q5M PRN 12/16/20 01:26 CORONAVIRUS COVID-19 RAPID [MOLEC] Stat
[2020-12-15] MEDS ORDERED: Alum Hydrox/Mag Hydrox/Simeth 15 ML, Lidocaine 2% 15 ML PO ONE ×2 (23:16)
[2020-12-15] MEDS ORDERED: Nitroglycerin 0.4 MG Tab.SL SL PRN (23:42)
[2020-12-16 02:26] VITALS: BP 131/68
--- NOTE | 2020-12-16 08:56 | CR ---
CHEST: 2 view CLINICAL HISTORY:Chest pain COMPARISON:May 2020 FINDINGS: Heart size pulmonary vascular normal. There are atherosclerotic changes in the aorta.. Lung markings are exaggerated by less than optimal inspiration and patient body habitus. No definite infiltrates are seen. Impression: No acute cardiopulmonary process
== END 2020-12-16 02:23 ==
LOC: JP.ED 21:28
DX: I25.110 Atherosclerotic heart disease of native coronary artery with unstable angina pectoris (principal); E11.9 Type 2 diabetes mellitus without complications; E78.5 Hyperlipidemia, unspecified; E66.9 Obesity, unspecified; I11.0 Hypertensive heart disease with heart failure; I50.9 Heart failure, unspecified; M10.9 Gout, unspecified; Z88.1 Allergy status to other antibiotic agents; Z95.5 Presence of coronary angioplasty implant and graft; Z91.041 Radiographic dye allergy status; Z91.018 Allergy to other foods; Z91.013 Allergy to seafood; Z88.8 Allergy status to other drugs, medicaments and biological substances; Z79.82 Long term (current) use of aspirin; Z79.02 Long term (current) use of antithrombotics/antiplatelets; Z79.84 Long term (current) use of oral hypoglycemic drugs; Z68.42 Body mass index [BMI] 45.0-49.9, adult; Z79.899 Other long term (current) drug therapy; Z20.822 Contact with and (suspected) exposure to COVID-19
CPT/HCPCS: 36415; 71046; 80053; 83880; 84484; 85025; 85379; 85610; 85730; 86140; 87635; 93005; 99285; A9270; U0002

== ENCOUNTER 2020-12-22 21:50 | Emergency (ER) | payer OTHER ==
[2020-12-22] MEDS ORDERED: Sodium Chloride 0.9% 10 ML Syringe FLUSH PRN (21:56)
--- NOTE | 2020-12-22 21:59 | EDM.PDOC ---
ED HPI GENERAL MEDICAL PROBLEM - General Chief Complaint: Chest Pain Stated Complaint: SOB,HEART STENT SATURDAY Time Seen by Provider: 12/22/20 21:56 Source of Information: Reports: Patient, Old Records History Limitations: Reports: No Limitations - History of Present Illness INITIAL COMMENTS - FREE TEXT/NARRATIVE: Esteban is a 60-year-old male presenting to the ED for evaluation of chest heaviness that began earlier today. Patient reports he recently was shipped to [facility] for a coronary angiogram and had a stent placed last (7 days ago). He reports that he took all of his medications including Plavix but today he just has not felt right. He states that he has some chest heaviness or pressure and a catching his breath. He denies any diaphoresis, nausea or vomiting. This is not the same pain that he felt when he had his previous cardiac events. Patient reports that he has had 5 previous stents before and had an additional stent placed on . chest pressure Pain Score (Numeric/FACES): 4 - Related Data Allergies Allergy/AdvReac Type Severity Reaction Status Date / Time iodine Allergy Intermediate Hives Verified 12/22/20 22:06 atorvastatin [From Lipitor] Allergy Cannot Verified 12/22/20 22:06 Remember celecoxib [From Celebrex] Allergy Cannot Verified 12/22/20 22:06 Remember colchicine Allergy Cannot Verified 12/22/20 22:06 Remember Iodinated Contrast Media Allergy Cannot Verified 12/22/20 22:06 [Iodinated Contrast- Oral Remember and IV Dye] naltrexone Allergy Cannot Verified 12/22/20 22:06 Remember niacin Allergy Cannot Verified 12/22/20 22:06 Remember nifedipine [From Procardia] Allergy Hypertensio Verified 12/22/20 22:06 n prazosin HCl [From Minipress] Allergy Hypertensio Verified 12/22/20 22:06 n shellfish derived Allergy Cannot Verified 12/22/20 22:06 Remember tuberculin, purified protein Allergy Cannot Verified 12/22/20 22:06 deriva Remember wheat Allergy Cannot Verified 12/22/20 22:06 Remember doxycycline AdvReac Pain Verified 12/22/20 22:06 nebivolol HCl [From Bystolic] AdvReac Shaking Verified 12/22/20 22:06 Home Meds: Home Meds Potassium Chloride [Potassium Chloride Solution] 20 meq PO DAILY 09/07/13 [History] Rosuvastatin Calcium [Crestor] 40 mg PO BEDTIME 09/07/13 [History] atenoloL [Tenormin] 25 mg PO BID 09/07/13 [History] Cyanocobalamin (Vitamin B-12) [Vitamin B-12] 2,000 mcg PO BID 03/28/16 [History] Albuterol Sulfate [Proair Hfa] 2 puff IH Q4H PRN 08/01/16 [History] Aspirin [Halfprin] 81 mg PO DAILY 08/01/16 [History] allopurinoL [Zyloprim] 400 mg PO BID 08/14/16 [History] glipiZIDE [Glucotrol] 10 mg PO DAILY 06/15/19 [History] Clopidogrel Bisulfate [Clopidogrel] 75 mg PO DAILY 07/27/19 [History] Lisinopril 10 mg PO ACLUNCH 07/27/19 [History] Nitroglycerin 0.4 mg PO ASDIRECTED 07/27/19 [History] Ascorbate Calcium [Vitamin C] 500 mg PO DAILY 08/14/19 [History] Isosorbide Mononitrate [Imdur] 30 mg PO BEDTIME 08/14/19 [History] Liraglutide [Victoza] 1.8 mg SUBCUT DAILY 08/14/19 [History] Magnesium Oxide [Magnesium] 400 mg PO BID 08/14/19 [History] prednisoLONE acetate [Pred Forte 1% Ophth Susp] 1 drop EYEBOTH QID 08/14/19 [History] Indomethacin 50 mg PO TID PRN 05/08/20 [History] Turmeric Root Extract [Turmeric] 2 tab PO DAILY 05/21/20 [History] metFORMIN [Glucophage] 1,000 mg PO BID 05/21/20 [History] Fish Oil/[place]-3 Fatty Acids [Fish Oil 1,000 MG] 1 cap PO BID 06/15/20 [History] Acetaminophen/HYDROcodone [[place] 325-5 MG] 1 - 2 tab PO Q6H PRN #14 tab 10/23/20 [Rx] Albuterol Sulfate 1 ampule INH Q4HR PRN 10/23/20 [History] Furosemide [Lasix] 30 mg PO BID 12/15/20 [History] Past Medical History HEENT History: Reports: Allergic Rhinitis, Impaired Vision Cardiovascular History: Reports: CAD, Heart Failure, Heart Murmur, High Cholesterol, Hypertension, SOB on Exertion, Stents Respiratory History: Reports: Pneumonia, Recurrent, Other (See Below) Other Respiratory History: seasonal allergies with use of albuterol as needed. Gastrointestinal History: Reports: Other (See Below) Other Gastrointestinal History: meckles diverticuloma Musculoskeletal History: Reports: Back Pain, Chronic, Fracture, Gout, Neck Pain, Chronic, Osteoarthritis Endocrine/Metabolic History: Reports: Diabetes, Type II, Obesity/BMI 30+ Hematologic History: Reports: Blood Transfusion(s) Dermatologic History: Reports: Venous Stasis Dermatitis - Infectious Disease History Infectious Disease History: Reports: Chicken Pox - Past Surgical History Head Surgeries/Procedures: Reports: None HEENT Surgical History: Reports: Oral Surgery Cardiovascular Surgical History: Reports: Coronary Artery Stent, Percutaneous Transluminal Angioplasty Other Cardiovascular Surgeries/Procedures: angio in oct 2019 -good Respiratory Surgical History: Reports: None GI Surgical History: Reports: Appendectomy, EGD Male Surgical History: Reports: None Endocrine Surgical History: Reports: None Musculoskeletal Surgical History: Reports: Other (See Below) Other Musculoskeletal Surgeries/Procedures:: surgical repair of right bicep. left elbow bursa removed Dermatological Surgical History: Reports: None Social & Family History - Family History Family Medical History: No Pertinent Family History Cardiac: Reports: CAD, High Cholesterol, Hypertension, [place] - Caffeine Use Caffeine Use: Reports: Coffee Other Caffeine Use: 1 cup - Living Situation & Occupation Living situation: Reports: Occupation: Employed (lives with Liza in [place], [place]. 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[place], [place].) ED ROS GENERAL - Review of Systems Review Of Systems: See Below Constitutional: Reports: Decreased Appetite HEENT: Reports: No Symptoms Respiratory: Reports: Shortness of Breath ("A catch in the breath") Cardiovascular: Reports: Chest Pain (Chest heaviness) Endocrine: Reports: No Symptoms GI/Abdominal: Reports: No Symptoms : Reports: No Symptoms Musculoskeletal: Reports: No Symptoms Skin: Reports: Change in Color (Chronic stasis dermatitis in both lower extremities) Neurological: Reports: No Symptoms Psychiatric: Reports: No Symptoms Hematologic/Lymphatic: Reports: No Symptoms Immunologic: Reports: No Symptoms ED EXAM, GENERAL - Physical Exam Exam: See Below Exam Limited By: No Limitations General Appearance: Alert, No Apparent Distress Eye Exam: Bilateral Eye: EOMI, Proptosis Head: Atraumatic, Normocephalic Neck: Normal Inspection, Supple, Non-Tender, Full Range of Motion Respiratory/Chest: No Respiratory Distress, No Accessory Muscle Use, Chest Non- Tender, Crackles (Left base) Cardiovascular: Normal Peripheral Pulses, Regular Rate, Rhythm, No Edema (1+ edema both lower extremities), No JVD, No Murmur, Other (Chronic venous stasis dermatitis both lower extremities left greater than right.) Peripheral Pulses: 2+: Radial (L), Radial (R), Posterior Tibial (L), Posterior Tibial (R) GI/Abdominal: Soft, Non-Tender, Abnormal Bowel Sounds (Diminished bowel sounds). No: Guarding, Rigid, Rebound Extremities: Normal Range of Motion, Non-Tender, Pedal Edema (1+ bilateral pedal edema), Other (Chronic venous stasis dermatitis both lower extremities from mid calf down. Right groin tenderness at the site of the recent angiogram and angioplasty. No significant hematoma.) Neurological: Alert, Oriented, Normal Cognition, No Motor/Sensory Deficits Psychiatric: Normal Affect, Normal Mood Skin Exam: Warm, Dry, Intact Lymphatic: No Adenopathy #1 Interpretation EKG Date: 12/22/20 Time: 22:00 Rhythm: NSR Rate (Beats/Min): 81 [place]: Normal P-Wave: Present QRS: Normal ST-T: Normal QT: Normal Comparison: No Change Course - Vital Signs Last Recorded V/S: Last Vital Signs Temp 36.5 C 12/22/20 22:11 Pulse 80 12/22/20 22:11 Resp 16 12/22/20 22:11 BP 142/84 H 12/22/20 22:11 Pulse Ox 95 12/22/20 22:11 - Orders/Labs/Meds Orders: Active Orders 24 hr Category Date Time Status EKG Documentation Completion [RC] ASDIRECTED Care 12/22/20 21:57 Active Chest 1V Frontal [CR] Stat Exams 12/22/20 22:10 Taken Sodium Chloride 0.9% [Saline Flush] Med 12/22/20 21:56 Active 10 ml FLUSH ASDIRECTED PRN Saline Lock Insert [OM.PC] Routine Oth 12/22/20 21:56 Ordered EKG 12 Lead [EK] Routine Ther 12/22/20 21:56 Ordered Medication Orders Sodium Chloride (Saline Flush) 10 ml FLUSH ASDIRECTED PRN PRN Reason: Keep Vein Open Last Admin: 12/22/20 22:07 Dose: 10 ml Documented by: SAIRA Labs: Laboratory Tests 12/22/20 12/22/20 12/22/20 Range/Units 22:05 22:05 22:05 WBC 11.5 H (4.5-11.0) K/uL RBC 4.71 (4.30-5.90) M/uL Hgb 14.0 (12.0-15.0) g/dL Hct 43.0 (40.0-54.0) % MCV 91 (80-98) fL MCH 30 (27-31) pg MCHC 33 (32-36) % Plt Count 240 (150-400) K/uL Neut % (Auto) 64 (36-66) % Lymph % (Auto) 25 (24-44) % [place] % (Auto) 9 H (2-6) % Eos % (Auto) 2 (2-4) % Baso % (Auto) 1 (0-1) % PT 10.3 (9.5-12.0) sec INR 0.94 (0.80-1.20) APTT 26.0 L (27.0-36.0) sec D-Dimer, Quantitative 663.19 H (0.0-500.0) ng/mL Sodium (140-148) mmol/L Potassium (3.6-5.2) mmol/L Chloride (100-108) mmol/L Carbon Dioxide (21-32) mmol/L Anion Gap (5.0-14.0) mmol/L BUN (7-18) mg/dL Creatinine (0.8-1.3) mg/dL Est Cr Clr Drug Dosing mL/min Estimated GFR (MDRD) (>60) Glucose (74-106) mg/dL Calcium (8.5-10.1) mg/dL Total Bilirubin (0.2-1.0) mg/dL AST (15-37) U/L ALT (12-78) U/L Alkaline Phosphatase (46-116) U/L Troponin I (0.000-0.056) ng/mL NT-Pro-B Natriuret Pep (5-125) pg/mL Total Protein (6.4-8.2) g/dL Albumin (3.4-5.0) g/dL Globulin (2.3-3.5) g/dL Albumin/Globulin Ratio (1.2-2.2) 12/22/20 12/22/20 Range/Units 22:05 22:58 WBC (4.5-11.0) K/uL RBC (4.30-5.90) M/uL Hgb (12.0-15.0) g/dL Hct (40.0-54.0) % MCV (80-98) fL MCH (27-31) pg MCHC (32-36) % Plt Count (150-400) K/uL Neut % (Auto) (36-66) % Lymph % (Auto) (24-44) % [place] % (Auto) (2-6) % Eos % (Auto) (2-4) % Baso % (Auto) (0-1) % PT (9.5-12.0) sec INR (0.80-1.20) APTT (27.0-36.0) sec D-Dimer, Quantitative (0.0-500.0) ng/mL Sodium 141 (140-148) mmol/L Potassium 3.4 L (3.6-5.2) mmol/L Chloride 102 (100-108) mmol/L Carbon Dioxide 27 (21-32) mmol/L Anion Gap 15.4 H (5.0-14.0) mmol/L BUN 15 (7-18) mg/dL Creatinine 1.0 (0.8-1.3) mg/dL Est Cr Clr Drug Dosing 88.78 mL/min Estimated GFR (MDRD) > 60 (>60) Glucose 179 H (74-106) mg/dL Calcium 8.9 (8.5-10.1) mg/dL Total Bilirubin 0.4 D (0.2-1.0) mg/dL AST 13 L (15-37) U/L ALT 29 (12-78) U/L Alkaline Phosphatase 76 (46-116) U/L Troponin I < 0.017 (0.000-0.056) ng/mL NT-Pro-B Natriuret Pep 33 (5-125) pg/mL Total Protein 7.2 (6.4-8.2) g/dL Albumin 3.4 (3.4-5.0) g/dL Globulin 3.8 H (2.3-3.5) g/dL Albumin/Globulin Ratio 0.9 L (1.2-2.2) Meds: Medications Generic Name Dose Route Start Last Admin Trade Name Kaydenq PRN Reason Stop Dose Admin Sodium Chloride 10 ml 12/22/20 21:56 12/22/20 22:07 Saline Flush FLUSH 10 ml ASDIRECTED PRN Administration Keep Vein Open Discontinued Medications Generic Name Dose Route Start Last Admin Trade Name Freq PRN Reason Stop Dose Admin Diphenhydramine HCl 50 mg 12/22/20 23:29 12/22/20 23:34 Benadryl IVPUSH 12/22/20 23:30 50 mg ONETIME ONE Administration Sodium Chloride 100 mls @ 4 mls/sec 12/22/20 23:05 12/22/20 23:43 Normal Saline IV 12/22/20 23:06 4 mls/sec ASDIRECTED STA Administration Iopamidol 100 ml 12/22/20 23:04 12/22/20 23:43 Isovue-370 (76%) IV 12/22/20 23:05 100 ml . DIRECTED STA Administration - Re-Assessments/Exams Free Text/Narrative Re-Assessment/Exam: 12/23/20 00:45 Esteban had elevation of his D-dimer so we proceeded with a CT angiogram of the chest rule out pulmonary embolism. CT showed no evidence for acute pulmonary embolism but did show a nonspecific mild mosaic attenuation pattern throughout the lungs, atherosclerosis and a coronary artery stent in the LAD, and fatty infiltration of the liver with a 2.7 x 1.6 cm indeterminate nodule along the medial aspect of the right adrenal. As his troponin was negative and his EKG is normal, there is unlikely that this is acute coronary syndrome or restenosis of his recently placed stent. At this time I feel comfortable in discharging the patient home with instructions to return should he have any concerns. Patient is in agreement with this plan. Departure - Departure Time of Disposition: 00:46 Disposition: Home, Self-Care 01 Clinical Impression: Chest heaviness Instructions: Nonspecific Chest Pain, Adult, [id number] Referrals: Adrian Leslie UROGYNAECOLOGIST [Primary Care Provider] - Forms: ED Department Discharge Care Plan Goals: I am reassured that your work-up today did not demonstrate any significant abnormalities. This includes any elevation in your cardiac enzymes or findings on the CT angiogram of your chest. At this time we will chalked this up to being just atypical chest pain with unknown cause. In addition, there was no evidence for infection as a cause of the pain or heaviness. Should you have any significant increase in symptoms feel free to return for reevaluation. Sepsis Event Note (ED) - Focused Exam Vital Signs: Vital Signs Temp Pulse Resp BP Pulse Ox 12/22/20 22:11 36.5 C 80 16 142/84 H 95 12/22/20 22:10 36.5 C 80 16 142/84 H 95 - Problem List & Annotations (1) Chest heaviness SNOMED Code(s): 737928212, 065375834 Code(s): R07.89 - OTHER CHEST PAIN Status: Acute Priority: High Current Visit: Yes - Problem List Review Problem List Initiated/Reviewed/Updated: Yes - My Orders Last 24 Hours: My Active Orders 12/22/20 21:56 Sodium Chloride 0.9% [Saline Flush] 10 ml FLUSH ASDIRECTED PRN Saline Lock Insert [OM.PC] Routine EKG 12 Lead [EK] Routine 12/22/20 21:57 EKG Documentation Completion [RC] ASDIRECTED 12/22/20 22:10 Chest 1V Frontal [CR] Stat - Assessment/Plan Last 24 Hours: My Active Orders 12/22/20 21:56 Sodium Chloride 0.9% [Saline Flush] 10 ml FLUSH ASDIRECTED PRN Saline Lock Insert [OM.PC] Routine EKG 12 Lead [EK] Routine 12/22/20 21:57 EKG Documentation Completion [RC] ASDIRECTED 12/22/20 22:10 Chest 1V Frontal [CR] Stat
[2020-12-22 22:11] VITALS: PULSE 80
[2020-12-22] MEDS ORDERED: Iopamidol 755 Mg/ML 100 ML Bottle IV STA (23:04)
[2020-12-22] MEDS ORDERED: Sodium Chloride 0.9% 100 ML IV STA (23:05)
[2020-12-22] MEDS ORDERED: diphenhydrAMINE 50 MG/ML SDV IVPUSH ONE (23:29)
--- NOTE | 2020-12-23 00:27 | CRLCT ---
INDICATION: Chest heaviness. Elevated D-dimer. Evaluate for pulmonary emboli. CT CHEST WITH CONTRAST TECHNIQUE: Multidetector CT imaging was performed through the chest following intravenous contrast administration using 100 mL Isovue 370. Coronal and sagittal reconstructions were generated. COMPARISON: None. FINDINGS: Lungs and airways: Nonspecific mild mosaic attenuation pattern throughout both lungs. Pleura and pleural spaces: No pleural effusions or pneumothorax. Heart and mediastinum: Normal heart size. No significant pericardial effusion. No pathologically enlarged mediastinal lymph nodes. Vascular structures: No filling defects in the pulmonary arterial tree to suggest pulmonary emboli. Normal caliber aorta with mild atherosclerotic calcifications. Coronary artery calcifications and probable coronary artery stent in the LAD. Aberrant origin of the right subclavian artery is noted, a developmental variant. Chest wall and axillae: No mass or axillary lymphadenopathy. Osseous structures: Spinal degenerative changes. No acute fractures identified. Upper abdomen: Diffuse fatty infiltration of the liver. 2.7 x 1.6 centimeter indeterminate nodule along the medial aspect of the right adrenal. IMPRESSION: 1. No pulmonary emboli identified. 2. Nonspecific mild mosaic attenuation pattern throughout the lungs. 3. Atherosclerosis and coronary artery stent. 4. Nonacute additional findings as detailed above. EMPERATRIZ GAMEZ MD [employer] [employer] Dictated by Albert Gamez MD @ 12/23/2020 12:24:24 AM Dictated by: Albert Gamez MD @ 12/23/2020 00:25:55 (Electronically Signed)
[2020-12-23 00:48] VITALS: BP 158/65
--- NOTE | 2020-12-23 08:59 | CR ---
CHEST: Portable to 03/07/2021 and 10:34 PM CLINICAL HISTORY:Chest heaviness COMPARISON:12/15/2020 FINDINGS: Heart size and pulmonary vascularity are normal. There are atherosclerotic changes in the aorta.. There is less than optimal inspiration which exaggerates lung markings. No infiltrates are seen. There are no effusions Impression: Poor inspiratory level. No acute cardiopulmonary process
== END 2020-12-23 00:50 | disposition home or self-care (01) ==
LOC: JP.ED 21:50
DX: R07.9 Chest pain, unspecified (principal); I25.10 Atherosclerotic heart disease of native coronary artery without angina pectoris; I11.0 Hypertensive heart disease with heart failure; I50.9 Heart failure, unspecified; E78.00 Pure hypercholesterolemia, unspecified; M10.9 Gout, unspecified; E11.9 Type 2 diabetes mellitus without complications; E66.9 Obesity, unspecified; Z68.42 Body mass index [BMI] 45.0-49.9, adult; Z91.048 Other nonmedicinal substance allergy status; Z88.8 Allergy status to other drugs, medicaments and biological substances; Z91.041 Radiographic dye allergy status; Z91.013 Allergy to seafood; Z88.7 Allergy status to serum and vaccine; Z88.1 Allergy status to other antibiotic agents; Z79.82 Long term (current) use of aspirin; Z79.84 Long term (current) use of oral hypoglycemic drugs; Z79.02 Long term (current) use of antithrombotics/antiplatelets; Z79.899 Other long term (current) drug therapy; Z95.5 Presence of coronary angioplasty implant and graft
CPT/HCPCS: 36415; 71045; 71275; 80053; 83880; 84484; 85025; 85379; 85610; 85730; 93005; 96374; 99284; 99285; J1200; Q9967

== ENCOUNTER 2022-01-16 13:09 | Emergency (ER) | payer OTHER ==
[2022-01-16] MEDS ORDERED: Morphine 2 MG/ML SYRINGE IVPUSH PRN (13:20)
[2022-01-16] MEDS ORDERED: Sodium Chloride 0.9% 10 ML Syringe FLUSH PRN (13:20)
[2022-01-16] MEDS ORDERED: Aspirin 81 MG Tab.Chew PO ONE (13:20)
[2022-01-16 13:21] VITALS: PULSE 87
[2022-01-16] MEDS: Nitroglycerin 0.4 MG Tab.SL SL PRN ×2 (13:51→14:17)
[2022-01-16 16:37] VITALS: BP 179/75
== END 2022-01-16 18:29 | disposition home or self-care (01) ==
LOC: JP.ED 13:09
DX: I24.9 Acute ischemic heart disease, unspecified (principal); I25.10 Atherosclerotic heart disease of native coronary artery without angina pectoris; E78.00 Pure hypercholesterolemia, unspecified; E11.9 Type 2 diabetes mellitus without complications; E66.9 Obesity, unspecified; Z68.42 Body mass index [BMI] 45.0-49.9, adult; Z91.041 Radiographic dye allergy status; Z88.8 Allergy status to other drugs, medicaments and biological substances; Z91.018 Allergy to other foods; Z88.1 Allergy status to other antibiotic agents; Z91.013 Allergy to seafood; Z79.82 Long term (current) use of aspirin; Z79.02 Long term (current) use of antithrombotics/antiplatelets; Z79.899 Other long term (current) drug therapy
CPT/HCPCS: 36415; 71045; 71045-26; 80053; 84484; 85025; 93005; 93010; 99283; 99285-25; A9270-GY

== ENCOUNTER 2022-10-14 16:35 | Emergency (ER) | payer OTHER ==
[2022-10-14 17:47] LABS: ESTIMATED GFR 68 mL/min (>60); TROPONIN I HIGH SENSITIVITY 8.4 pg/mL (<=60.3)
[2022-10-14] MEDS ORDERED: Sodium Chloride 0.9% 10 ML Syringe FLUSH PRN (18:51)
[2022-10-14] MEDS ORDERED: Albuterol 0.021% 0.63 MG/3 ML Neb Soln INH PRN (18:56)
[2022-10-14] MEDS ORDERED: INDOMETHACIN PO PRN (18:56)
[2022-10-14] MEDS ORDERED: Albuterol 90 MCG/6.7 GM Inhaler INH PRN (18:56)
[2022-10-14] MEDS ORDERED: Non-Formulary Medication 1 Each (Allopurinol [Zyloprim] 300 MG Tablet) PO SCH (19:00)
[2022-10-14] MEDS ORDERED: Non-Formulary Medication 1 Each (Magnesium Oxide [Magnesium] 400 MG Capsule) PO SCH (19:00)
[2022-10-14] MEDS ORDERED: GLIPIZIDE 10 MG PO SCH (19:00)
[2022-10-14] MEDS ORDERED: Liraglutide (rDNA Origin) 0.6 MG/0.1 ML 3 ML Pen SUBCUT SCH (19:00)
[2022-10-14] MEDS ORDERED: Non-Formulary Medication 1 Each (Rosuvastatin Calcium [Crestor] 40 MG Tablet) PO SCH (21:00)
[2022-10-14] MEDS ORDERED: Non-Formulary Medication 1 Each (Cyanocobalamin (Vitamin B-12) [Vitamin B-12] 1,000 MCG Ta PO SCH (21:00)
[2022-10-14] MEDS: Isosorbide Mononitrate 30 MG Tab.ER PO SCH ×3 (22:12→22:48)
[2022-10-14] MEDS: Furosemide 20 MG Tab PO SCH ×2 (22:44→22:48)
[2022-10-14] MEDS: metFORMIN 500 MG Tab PO SCH ×2 (22:44→22:48)
[2022-10-14] MEDS: Atenolol 25 MG Tab PO SCH ×2 (22:45→22:49)
[2022-10-14] MEDS ORDERED: Acetaminophen 500 MG Tab PO ONE (23:26)
[2022-10-15] MEDS: metFORMIN 500 MG Tab PO SCH ×2 (08:50→20:47)
[2022-10-15] MEDS: glipiZIDE 5 MG Tab.ER PO SCH ×2 (08:50→20:47)
[2022-10-15] MEDS: Aspirin 81 MG Tab.EC PO SCH (08:50)
[2022-10-15] MEDS: Potassium Chloride 20 MEQ Tab.ER PO SCH (08:51)
[2022-10-15] MEDS: Magnesium Oxide 400 MG Tab PO SCH ×2 (08:51→20:47)
[2022-10-15] MEDS: Furosemide 40 MG Tab PO SCH ×2 (08:51→13:39)
[2022-10-15] MEDS: Isosorbide Mononitrate 30 MG Tab.ER PO SCH ×2 (08:51→20:48)
[2022-10-15] MEDS: predniSONE 20 MG Tab PO SCH (08:52)
[2022-10-15] MEDS: Atenolol 25 MG Tab PO SCH ×2 (08:52→20:48)
[2022-10-15] MEDS: Cyanocobalamin (Vitamin B12) 1,000 MCG Tab PO SCH ×2 (08:52→20:48)
[2022-10-15] MEDS: Allopurinol 100 MG Tab PO SCH ×2 (08:53→20:46)
[2022-10-15] MEDS ORDERED: predniSONE 10 MG Tab PO SCH (09:00)
[2022-10-15] MEDS ORDERED: Clopidogrel 75 MG Tab PO SCH (09:00)
[2022-10-15] MEDS ORDERED: Heparin Sodium 5,000 Units/ML Vial IVPUSH ONE ×3 (10:58→22:22)
[2022-10-15] MEDS ORDERED: Nitroglycerin 0.4 MG Tab.SL SL PRN (11:10)
[2022-10-15] MEDS ORDERED: Ondansetron 4 MG/2 ML SDV IVPUSH ONE (11:13)
[2022-10-15] MEDS: Heparin Sodium/D5W 25,000 UNITS/500 ML BAG IV SCH (11:25)
[2022-10-15] MEDS: Liraglutide (rDNA Origin) 0.6 MG/0.1 ML 3 ML Pen SUBCUT SCH (11:52)
[2022-10-15] MEDS ORDERED: Rosuvastatin 10 MG Tab PO SCH (21:00)
[2022-10-16] MEDS: Heparin Sodium/D5W 25,000 UNITS/500 ML BAG IV SCH (00:28)
[2022-10-16] MEDS: metFORMIN 500 MG Tab PO SCH (09:03)
[2022-10-16] MEDS: glipiZIDE 5 MG Tab.ER PO SCH (09:04)
[2022-10-16] MEDS: Isosorbide Mononitrate 30 MG Tab.ER PO SCH (09:05)
[2022-10-16] MEDS: Aspirin 81 MG Tab.EC PO SCH (09:05)
[2022-10-16] MEDS: Allopurinol 100 MG Tab PO SCH (09:08)
[2022-10-16] MEDS: Potassium Chloride 20 MEQ Tab.ER PO SCH (09:09)
[2022-10-16] MEDS: Furosemide 40 MG Tab PO SCH (09:10)
[2022-10-16] MEDS: Magnesium Oxide 400 MG Tab PO SCH (09:10)
[2022-10-16] MEDS: predniSONE 20 MG Tab PO SCH (09:13)
[2022-10-16] MEDS: Atenolol 25 MG Tab PO SCH (09:14)
[2022-10-16] MEDS: Cyanocobalamin (Vitamin B12) 1,000 MCG Tab PO SCH (09:15)
[2022-10-16] MEDS ORDERED: Heparin Sodium/D5W 25,000 UNITS/500 ML BAG IV SCH (10:30)
[2022-10-16] MEDS ORDERED: Heparin Sodium 5,000 Units/ML Vial IVPUSH ONE (10:52)
[2022-10-16] MEDS ORDERED: Acetaminophen 325 MG Tab PO ONE (11:08)
[2022-10-16] MEDS ORDERED: Acetaminophen 500 MG Tab PO ONE (11:30)
[2022-10-16] MEDS: Liraglutide (rDNA Origin) 0.6 MG/0.1 ML 3 ML Pen SUBCUT SCH (11:46)
[2022-10-16] MEDS ORDERED: Ondansetron 4 MG/2 ML SDV IVPUSH ONE (13:15)
[2022-10-16] MEDS ORDERED: LORazepam 0.5 MG Tab PO ONE (13:16)
[2022-10-16 14:12] VITALS: BP 141/83; PULSE 79
[2022-10-18] MEDS ORDERED: predniSONE 10 MG Tab PO SCH (09:00)
[2022-10-19] MEDS ORDERED: predniSONE 10 MG Tab PO SCH (09:00)
[2022-10-23] MEDS ORDERED: predniSONE 5 MG Tab PO SCH (09:00)
[2022-10-24] MEDS ORDERED: predniSONE 5 MG Tab PO SCH (09:00)
== END 2022-10-16 14:15 ==
LOC: JP.ED 16:35
DX: I20.0 Unstable angina (principal); E11.9 Type 2 diabetes mellitus without complications; E66.9 Obesity, unspecified; Z68.43 Body mass index [BMI] 50.0-59.9, adult; Z88.8 Allergy status to other drugs, medicaments and biological substances; Z88.1 Allergy status to other antibiotic agents; Z91.041 Radiographic dye allergy status; Z91.013 Allergy to seafood; Z88.7 Allergy status to serum and vaccine; Z91.018 Allergy to other foods; Z79.82 Long term (current) use of aspirin; Z79.02 Long term (current) use of antithrombotics/antiplatelets; Z79.84 Long term (current) use of oral hypoglycemic drugs; Z79.899 Other long term (current) drug therapy; Z20.822 Contact with and (suspected) exposure to COVID-19
CPT/HCPCS: 36415; 71045; 80048; 82947; 84484; 85025; 85730; 87635; 93005; 93010; 96365; 96366; 96372; 96375; 96376; 99285; A9270; J1644; J2405; J7512; U0002

== ENCOUNTER 2022-10-27 18:33 | Emergency (ER) | payer OTHER ==
[2022-10-27 18:47] VITALS: BP 183/94; PULSE 77
== END 2022-10-27 19:37 | disposition home or self-care (01) ==
LOC: JP.ED 18:33
DX: N39.0 Urinary tract infection, site not specified (principal); E11.9 Type 2 diabetes mellitus without complications; E66.9 Obesity, unspecified; Z68.43 Body mass index [BMI] 50.0-59.9, adult; Z91.041 Radiographic dye allergy status; Z88.1 Allergy status to other antibiotic agents; Z88.8 Allergy status to other drugs, medicaments and biological substances; Z91.013 Allergy to seafood; Z91.048 Other nonmedicinal substance allergy status; Z79.899 Other long term (current) drug therapy; Z79.82 Long term (current) use of aspirin; Z79.84 Long term (current) use of oral hypoglycemic drugs; Z90.49 Acquired absence of other specified parts of digestive tract
CPT/HCPCS: 81001; 87086; 87088; 87186; 99283

== ENCOUNTER 2023-04-25 16:41 | Emergency (ER) | payer OTHER ==
[2023-04-25 17:08] VITALS: BP 164/77; PULSE 74
== END 2023-04-25 17:47 | disposition home or self-care (01) ==
LOC: JP.ED 16:41
DX: M54.50 Low back pain, unspecified (principal); E11.9 Type 2 diabetes mellitus without complications; E66.9 Obesity, unspecified; Z86.16 Personal history of COVID-19; Z79.82 Long term (current) use of aspirin; Z79.899 Other long term (current) drug therapy; Z91.041 Radiographic dye allergy status; Z88.8 Allergy status to other drugs, medicaments and biological substances; Z91.013 Allergy to seafood; Z79.84 Long term (current) use of oral hypoglycemic drugs; V89.2XXA Person injured in unspecified motor-vehicle accident, traffic, initial encounter; Y92.410 Unspecified street and highway as the place of occurrence of the external cause
CPT/HCPCS: 99283

== ENCOUNTER 2023-09-24 14:24 | Emergency (ER) | payer OTHER ==
[2023-09-24] MEDS ORDERED: Nitroglycerin 0.4 MG Tab.SL SL PRN (14:46)
[2023-09-24] MEDS ORDERED: Sodium Chloride 0.9% 10 ML Syringe FLUSH PRN (14:46)
[2023-09-24] MEDS ORDERED: Ondansetron 4 MG/2 ML SDV IVPUSH ONE (14:50)
[2023-09-24 14:52] LABS: BASOPHILS ABSOLUTE AUTO 0.08 K/uL (0.00-0.10); BASOPHILS PERCENT AUTO 0.8 % (0.1-1.3); EOSINOPHILS ABSOLUTE AUTO 0.18 K/uL (0.00-0.40); EOSINOPHILS PERCENT AUTO 1.8 % (0.0-5.4); HEMATOCRIT 41.3 % (38.4-49.7); HEMOGLOBIN 13.9 g/dL (12.9-16.9); IMMATURE GRAN ABSOLUTE AUTO 0.04 K/uL (0.00-0.23); IMMATURE GRAN PERCENT AUTO 0.4 % (0.0-0.7); LYMPHOCYTES ABSOLUTE AUTO 2.52 K/uL (0.8-3.3); LYMPHOCYTES PERCENT AUTO 25.1 % (11.4-47.7); MEAN CORPUSCULAR HGB CONC 33.7 g/dL (31.6-35.5); MEAN CORPUSCULAR VOLUME 86.2 fL (81.4-99.0); MONOCYTES ABSOLUTE AUTO 0.71 K/uL (0.20-0.90); MONOCYTES PERCENT AUTO 7.1 % (3.3-12.6); NEUTROPHILS ABSOLUTE AUTO 6.49 K/uL (1.0-7.6); NEUTROPHILS PERCENT AUTO 64.8 % (40.0-78.1); PLATELET COUNT,PLT 210 K/uL (130-375); RED BLOOD CELL COUNT 4.79 M/uL (4.14-5.76)
[2023-09-24] MEDS: Morphine 4 MG/ML Syringe IVPUSH PRN ×2 (14:54→16:39)
[2023-09-24] MEDS ORDERED: diphenhydrAMINE 50 MG/ML SDV IVPUSH ONE (15:02)
[2023-09-24] MEDS ORDERED: diphenhydrAMINE 50 MG/ML SDV ONE (15:02)
[2023-09-24 15:07] LABS: ANION GAP 16.5 mmol/L (5.0-14.0); CALCIUM 8.1 mg/dL (8.5-10.1); CREATININE 1.3 mg/dL (0.8-1.3); EST CRCL DRUG DOSING (CG) 63.84 mL/min; POTASSIUM,K 3.5 mmol/L (3.6-5.2); TROPONIN I HIGH SENSITIVITY 4.8 pg/mL (<=60.3)
[2023-09-24 16:32] VITALS: BP 156/80; PULSE 74
== END 2023-09-24 18:01 | disposition home or self-care (01) ==
LOC: JP.ED 14:24
DX: R07.89 Other chest pain (principal); I25.10 Atherosclerotic heart disease of native coronary artery without angina pectoris; E11.9 Type 2 diabetes mellitus without complications; E66.9 Obesity, unspecified; Z95.0 Presence of cardiac pacemaker; Z91.041 Radiographic dye allergy status; Z88.8 Allergy status to other drugs, medicaments and biological substances; Z91.013 Allergy to seafood; Z91.018 Allergy to other foods; Z88.1 Allergy status to other antibiotic agents; Z79.82 Long term (current) use of aspirin; Z79.84 Long term (current) use of oral hypoglycemic drugs; Z79.899 Other long term (current) drug therapy
CPT/HCPCS: 36415; 71045; 71045-26; 80048; 84484; 85025; 93005; 93010; 96374; 96375; 99284; 99285-25; A9270-GY; J1200; J2270; J2405

== ENCOUNTER 2023-12-22 09:24 | Emergency (ER) | payer BC, OTHER ==
[2023-12-22 11:11] VITALS: BP 154/77; PULSE 90
== END 2023-12-22 11:57 | disposition home or self-care (01) ==
LOC: JP.ED 09:24
DX: M10.9 Gout, unspecified (principal); I25.10 Atherosclerotic heart disease of native coronary artery without angina pectoris; E11.9 Type 2 diabetes mellitus without complications; E66.9 Obesity, unspecified; Z68.42 Body mass index [BMI] 45.0-49.9, adult; Z95.5 Presence of coronary angioplasty implant and graft; Z86.16 Personal history of COVID-19; Z91.048 Other nonmedicinal substance allergy status; Z91.013 Allergy to seafood; Z91.018 Allergy to other foods; Z88.1 Allergy status to other antibiotic agents; Z91.041 Radiographic dye allergy status; Z88.8 Allergy status to other drugs, medicaments and biological substances; Z88.5 Allergy status to narcotic agent; Z79.82 Long term (current) use of aspirin; Z79.84 Long term (current) use of oral hypoglycemic drugs; Z79.899 Other long term (current) drug therapy
CPT/HCPCS: 99283

== ENCOUNTER 2025-10-13 22:31 | Emergency (ER) | payer BC, MEDICARE ==
[2025-10-13 22:54] LABS: BASOPHILS ABSOLUTE AUTO 0.06 K/uL (0.00-0.10); BASOPHILS PERCENT AUTO 0.6 % (0.1-1.3); EOSINOPHILS ABSOLUTE AUTO 0.14 K/uL (0.00-0.40); EOSINOPHILS PERCENT AUTO 1.4 % (0.0-5.4); IMMATURE GRAN ABSOLUTE AUTO 0.08 K/uL (0.00-0.23); IMMATURE GRAN PERCENT AUTO 0.8 % (0.0-0.7); LYMPHOCYTES ABSOLUTE AUTO 1.53 K/uL (0.8-3.3); LYMPHOCYTES PERCENT AUTO 14.9 % (11.4-47.7); MONOCYTES ABSOLUTE AUTO 0.62 K/uL (0.20-0.90); MONOCYTES PERCENT AUTO 6.1 % (3.3-12.6); NEUTROPHILS ABSOLUTE AUTO 7.81 K/uL (1.0-7.6); NEUTROPHILS PERCENT AUTO 76.2 % (40.0-78.1); PLATELET COUNT,PLT 233 K/uL (130-375); RED BLOOD CELL COUNT 4.56 M/uL (4.14-5.76); WHITE BLOOD CELL COUNT,WBC 10.2 K/uL (3.2-11.0)
[2025-10-13 23:11] LABS: INR 1.0
[2025-10-13 23:18] LABS: A/G RATIO 0.8 (1.2-2.2); ALANINE AMINOTRANSFERASE,ALT 24 U/L (12-78); ASPARTATE AMNIOTRANSFERASE,AST 13 U/L (15-37); BILIRUBIN TOTAL 0.3 mg/dL (0.2-1.0); BLOOD UREA NITROGEN,BUN 17 mg/dL (7-18); CARBON DIOXIDE,CO2 27 mmol/L (21-32); CHLORIDE,CL 102 mmol/L (100-108); CREATININE 1.4 mg/dL (0.8-1.3); EST CRCL DRUG DOSING (CG) 59.45 mL/min; ESTIMATED GFR 56 mL/min (>60); GLUCOSE RANDOM 184 mg/dL (74-106); POTASSIUM,K 3.9 mmol/L (3.6-5.2); PROTEIN TOTAL,TP 7.8 g/dL (6.4-8.2); SODIUM,NA 142 mmol/L (140-148); TROPONIN I HIGH SENSITIVITY 8.1 pg/mL (<=60.3)
[2025-10-13 23:59] VITALS: BP 155/71; PULSE 88
== END 2025-10-14 00:49 | disposition home or self-care (01) ==
LOC: JP.ED 22:31
DX: R07.89 Other chest pain (principal); I25.10 Atherosclerotic heart disease of native coronary artery without angina pectoris; E11.9 Type 2 diabetes mellitus without complications; E66.9 Obesity, unspecified; Z86.16 Personal history of COVID-19; Z95.5 Presence of coronary angioplasty implant and graft; Z79.899 Other long term (current) drug therapy; Z79.84 Long term (current) use of oral hypoglycemic drugs; Z79.82 Long term (current) use of aspirin; Z91.041 Radiographic dye allergy status; Z88.8 Allergy status to other drugs, medicaments and biological substances; Z88.5 Allergy status to narcotic agent; Z88.1 Allergy status to other antibiotic agents; Z91.030 Bee allergy status; Z68.42 Body mass index [BMI] 45.0-49.9, adult
CPT/HCPCS: 36415; 71045; 80053; 84484; 85025; 85610; 99285; A9270